=== PATIENT | female | born 1960 | race African-American/Black ===

== ENCOUNTER 2016-10-22 14:33 | Emergency (ER) | payer SELFPAY ==
[~2016-10-22] VITALS: Ht 170.2 cm; Wt 62.6 kg
[~2016-10-22 14:33] MED LIST: ATOR10TA PO; CLON0.1T PO; OXYC30TA PO; PROM118S3 PO
--- NOTE | 2016-10-22 14:53 | PHYS DOC ---
Past Medical History Past Medical History: Asthma, Hypertension Additional Past Medical Histor: "thyroid problem" carp.tunnel Past Surgical History: No Surgical History Alcohol Use: Occasionally Drug Use: None Adult General Chief Complaint Chief Complaint: INSECT BITE HPI HPI Patient is a 56 year old presents to the emergency department with complaints of an insect bite to the forehead. She was bitten yesterday. She has mild swelling at the site of the bite. No other complaints. Review of Systems Review of Systems Constitutional: Denies fever or chills [] Eyes: Denies change in visual acuity, redness, or eye pain [] HENT: Denies nasal congestion or sore throat [] Respiratory: Denies cough or shortness of breath [] Cardiovascular: No additional information not addressed in HPI [] GI: Denies abdominal pain, nausea, vomiting, bloody stools or diarrhea [] : Denies dysuria or hematuria [] Musculoskeletal: Denies back pain or joint pain [] Integument: Denies rash or skin lesions, insect bite [] Neurologic: Denies headache, focal weakness or sensory changes [] Endocrine: Denies polyuria or polydipsia [] Allergies Allergies Allergies Coded Allergies Type Severity Reaction Last Updated Verified No Known Drug Allergies 07/25/14 No Physical Exam Physical Exam Constitutional: Well developed, well nourished, no acute distress, non-toxic appearance. [] HENT: Normocephalic, atraumatic, bilateral external ears normal, oropharynx moist, no oral exudates, nose normal. [] Eyes: PERRLA, EOMI, conjunctiva normal, no discharge. [] Neck: Normal range of motion, no tenderness, supple, no stridor. [] Cardiovascular:Heart rate regular rhythm, no murmur [] Lungs & Thorax: Bilateral breath sounds clear to auscultation [] Abdomen: Bowel sounds normal, soft, no tenderness, no masses, no pulsatile masses. [] Skin: Warm, dry, no erythema, central forehead with a less than 1 cm papule without erythema, vesicles or pustules. It is nontender. There is no fluctuance. There is no induration. Back: No tenderness, no CVA tenderness. [] Extremities: No tenderness, no cyanosis, no clubbing, ROM intact, no edema. [] Neurologic: Alert and oriented X 3, normal motor function, normal sensory function, no focal deficits noted. [] Psychologic: Affect normal, judgement normal, mood normal. [] EKG EKG [] Radiology/Procedures Radiology/Procedures [] Course & Med Decision Making Course & Med Decision Making Pertinent Labs and Imaging studies reviewed. (See chart for details) [] Dragon Disclaimer Dragon Disclaimer This electronic medical record was generated, in whole or in part, using a voice recognition dictation system. Departure Departure Impression: Primary Impression: Insect bite Disposition: 01 HOME, SELF-CARE Condition: STABLE Referrals: ADALBERTO CORTES MD (PCP) Patient Instructions: Insect Bite Additional Instructions: Benadryl [id number] as labeled and is indicated for symptom management CELIA LESLIE LANCE CREWMEMBER Oct 22, 2016 14:53
[2016-10-22 14:54] VITALS: BP 153/99
[2016-10-22] MEDS ORDERED: diphenhydrAMINE HCL 25 MG CAPSULE PO ONE (15:15)
== END 2016-10-22 15:15 | disposition home or self-care (01) ==
LOC: ER 14:33
DX: S00.86XA Insect bite (nonvenomous) of other part of head, initial encounter (principal); J45.909 Unspecified asthma, uncomplicated; I10 Essential (primary) hypertension; E07.9 Disorder of thyroid, unspecified; W57.XXXA Bitten or stung by nonvenomous insect and other nonvenomous arthropods, initial encounter; Y93.89 Activity, other specified; Y92.89 Other specified places as the place of occurrence of the external cause; Y99.8 Other external cause status
CPT/HCPCS: 99282; Q0163

== ENCOUNTER 2017-03-09 17:11 | Emergency (ER) | payer SELFPAY ==
[~2017-03-09] VITALS: Ht 172.7 cm; Wt 62.6 kg
[2017-03-09 18:26] VITALS: BP 119/55
--- NOTE | 2017-03-09 18:49 | RAD ---
CT scan of the head without contrast 03/09/2017 Clinical History: Left-sided numbness for 2 days. Technique: Unenhanced, contiguous, 5 mm axial sections were obtained through the head. Findings: No previous imaging studies are available for comparison. There is mild generalized parenchymal atrophy. Areas of decreased attenuation are seen within the periventricular and subcortical white matter of both cerebral hemispheres consistent with areas of mild small vessel ischemic disease. No acute parenchymal abnormality is seen. No extra-axial fluid collection is noted. No skull fracture is seen. Impression: No acute intracranial abnormality is seen. Electronically signed by: Cesar Hand MD (03/09/2017 6:46 PM) [facility]
[2017-03-09 18:50] LABS: BASO # 0.1 x10^3/uL (0.0-0.2); BASO % 1 % (0-3); EOS % 1 % (0-3); HEMATOCRIT 43.4 % (36.0-47.0); HEMOGLOBIN 14.9 g/dL (12.0-15.5); LYMPH # 2.3 x10^3/uL (1.0-4.8); LYMPH % 36 % (24-48); MEAN CORPUSCULAR HEMOGLOBIN 34 pg (25-35); MEAN CORPUSCULAR HGB CONC 34 g/dL (31-37); MEAN CORPUSCULAR VOLUME 98 fL (79-100); MONO % 7 % (0-9); NEUT % 55 % (31-73); PLATELET COUNT 295 x10^3/uL (140-400); RED BLOOD COUNT 4.44 x10^6/uL (3.50-5.40); RED CELL DISTRIBUTION WIDTH 13.4 % (11.5-14.5); WHITE BLOOD COUNT 6.4 x10^3/uL (4.0-11.0)
[2017-03-09 18:52] LABS: BILIRUBIN,URINE NEGATIVE (NEG); GLUCOSE,URINE NEGATIVE (NEG); NITRITE,URINE NEGATIVE (NEG); PROTEIN,URINE NEGATIVE (NEG-TRACE); UROBILINOGEN,URINE 0.2 mg/dL (0.2 mg/dL)
--- NOTE | 2017-03-09 18:56 | PHYS DOC ---
Past Medical History Past Medical History: Asthma, COPD, Hypertension Additional Past Medical Histor: "thyroid problem" carp.tunnel Past Surgical History: No Surgical History Alcohol Use: Heavy Additional Information: DRANK 1/2 P[place] TODAY. LAST DRINK 1 HOUR AGO Drug Use: Cocaine, Marijuana Social History Narrative: COCAINE LAST USED 1 MONTH AGO Adult General Chief Complaint Chief Complaint: NEURO SYMPTOMS/DEFICITS HPI HPI Patient is a 56 year old female who presents with complaint of left-sided numbness and slurring of speech. Patient states that the numbness started 2 days ago on her left side. Patient states that the pain and numbness started in her left upper extremity 2 days ago. Patient states that yesterday she started noticing numbness in her left lower extremity that goes to her great toe. The patient denies any associated weakness with her symptoms. The patient states that she also started having slurring of speech today. The patient does admit that she recently had drank alcohol but states that "it wasn't enough to intoxicated me." Patient also states that she takes oxycodone tablets which she gets for her chronic pain as prescribed by Dr. Cortes. Patient denies any history of stroke. The patient states that she is worried that she could've had a stroke which is why she came to the emergency department for evaluation today. Review of Systems Review of Systems Constitutional: Denies fever or chills [] Eyes: Denies change in visual acuity, redness, or eye pain [] HENT: Denies nasal congestion or sore throat [] Respiratory: Denies cough or shortness of breath [] Cardiovascular: Denies chest pain or edema[] GI: Denies abdominal pain, nausea, vomiting, bloody stools or diarrhea [] : Denies dysuria or hematuria [] Musculoskeletal: Chronic arthritis[] Integument: Denies rash or skin lesions [] Neurologic: Left arm and left lower extremity numbness, slurred speech[] Allergies Allergies Allergies Coded Allergies Type Severity Reaction Last Updated Verified No Known Drug Allergies 10/22/16 No Physical Exam Physical Exam Constitutional: Alert, afebrile, no acute distress, alcoholic halitosis present. [] HENT: Normocephalic, atraumatic, bilateral external ears normal, oropharynx moist, no oral exudates, nose normal. [] Eyes: PERRLA, EOMI, conjunctiva normal, no discharge. [] Neck: Normal range of motion, no tenderness, supple, no stridor. [] Cardiovascular:Heart rate regular rhythm, no murmur [] Lungs & Thorax: Bilateral breath sounds clear to auscultation [] Abdomen: Bowel sounds normal, soft, no tenderness, no masses, no pulsatile masses. [] Skin: Warm, dry, no erythema, no rash. [] Back: No tenderness, no CVA tenderness. [] Extremities: No tenderness, no cyanosis, no clubbing, ROM intact, no edema. [] Neurologic: Alert and oriented X 3, normal motor function, no discernible dysarthria, mildly decreased sensation to first to third digits of left hand in median nerve distribution, band sawyer strength normal, no focal deficits noted. [] Current Patient Data Vital Signs Vital Signs Date Time Temp Pulse Resp B/P (MAP) Pulse Ox O2 Delivery O2 Flow Rate FiO2 03/09/17 18:26 70 96 03/09/17 17:34 98.5 24 110/55 (73) Room Air 98.5 Lab Values Laboratory Tests Test 03/09/17 17:15 03/09/17 18:43 Urine Collection Type Unknown Urine Color Yellow Urine Clarity Clear Urine pH 6.0 Urine Specific [place] 1.025 Urine Protein Negative mg/dL (NEG-TRACE) Urine Glucose (UA) Negative mg/dL (NEG) Urine Ketones (Stick) Negative mg/dL (NEG) Urine Blood Negative (NEG) Urine Nitrite Negative (NEG) Urine Bilirubin Negative (NEG) Urine Urobilinogen Dipstick 0.2 mg/dL (0.2 mg/dL) Urine Leukocyte Esterase Negative (NEG) Urine RBC 0 /HPF (0-2) Urine WBC Occ /HPF (0-4) Urine Squamous Epithelial Cells Mod /LPF Urine Bacteria Few /HPF (0-FEW) Urine Mucus Mod /LPF Urine Opiates Screen Pos (NEG) Urine Methadone Screen Neg (NEG) Urine Barbiturates Neg (NEG) Urine Phencyclidine Screen Neg (NEG) Urine Amphetamine/Methamphetamine Neg (NEG) Urine Benzodiazepines Screen Neg (NEG) Urine Cocaine Screen Pos (NEG) Urine Cannabinoids Screen Pos (NEG) Urine Ethyl Alcohol Pos (NEG) White Blood Count 6.4 x10^3/uL (4.0-11.0) Red Blood Count 4.44 x10^6/uL (3.50-5.40) Hemoglobin 14.9 g/dL (12.0-15.5) Hematocrit 43.4 % (36.0-47.0) Mean Corpuscular Volume 98 fL (79-100) Mean Corpuscular Hemoglobin 34 pg (25-35) Mean Corpuscular Hemoglobin Concent 34 g/dL (31-37) Red Cell Distribution Width 13.4 % (11.5-14.5) Platelet Count 295 x10^3/uL (140-400) Neutrophils (%) (Auto) 55 % (31-73) Lymphocytes (%) (Auto) 36 % (24-48) Monocytes (%) (Auto) 7 % (0-9) Eosinophils (%) (Auto) 1 % (0-3) Basophils (%) (Auto) 1 % (0-3) Neutrophils # (Auto) 3.5 x10^3uL (1.8-7.7) Lymphocytes # (Auto) 2.3 x10^3/uL (1.0-4.8) Monocytes # (Auto) 0.4 x10^3/uL (0.0-1.1) Eosinophils # (Auto) 0.1 x10^3/uL (0.0-0.7) Basophils # (Auto) 0.1 x10^3/uL (0.0-0.2) Prothrombin Time 11.9 SEC (11.7-14.0) Prothrombin Time INR 0.9 (0.8-1.1) PTT 22 SEC (24-38) L Sodium Level 142 mmol/L (136-145) Potassium Level 3.8 mmol/L (3.5-5.1) Chloride Level 100 mmol/L (98-107) Carbon Dioxide Level 31 mmol/L (21-32) Anion Gap 11 (6-14) Blood Urea Nitrogen 26 mg/dL (7-20) H Creatinine 1.0 mg/dL (0.6-1.0) Estimated GFR (Cockcroft-Gault) 69.7 BUN/Creatinine Ratio 26 (6-20) H Glucose Level 101 mg/dL (70-99) H Calcium Level 9.7 mg/dL (8.5-10.1) Magnesium Level 1.8 mg/dL (1.8-2.4) Total Bilirubin 0.3 mg/dL (0.2-1.0) Aspartate Amino Transferase (AST) 51 U/L (15-37) H Alanine Aminotransferase (ALT) 27 U/L (14-59) Alkaline Phosphatase 114 U/L (46-116) Total Protein 8.5 g/dL (6.4-8.2) H Albumin 3.9 g/dL (3.4-5.0) Albumin/Globulin Ratio 0.8 (1.0-1.7) L Ethyl Alcohol Level 98 mg/dL (0-10) H Laboratory Tests 03/09/17 18:43 Laboratory Tests 03/09/17 18:43 EKG EKG Interpreted by me: Heart rate 66, sinus rhythm, normal intervals, normal axis, no acute ST/T-wave abnormalities present[] Radiology/Procedures Radiology/Procedures [facility] [address] [place] [address] IMAGING REPORT Signed PATIENT: BRENDA BROWN ACCOUNT: [id number] : 1960 LOCATION: ER AGE: 56 SEX: F EXAM STATUS: REG ER ORD. PHYSICIAN: ARCHANA MCGOVERN MD REASON: left-sided numbness for 2 days PROCEDURE: CT HEAD WO CONTRAST CT scan of the head without contrast 03/09/2017 Clinical History: Left-sided numbness for 2 days. Technique: Unenhanced, contiguous, 5 mm axial sections were obtained through the head. Findings: No previous imaging studies are available for comparison. There is mild generalized parenchymal atrophy. Areas of decreased attenuation are seen within the periventricular and subcortical white matter of both cerebral hemispheres consistent with areas of mild small vessel ischemic disease. No acute parenchymal abnormality is seen. No extra-axial fluid collection is noted. No skull fracture is seen. Impression: No acute intracranial abnormality is seen. Electronically signed by: Cesar Hand MD (03/09/2017 6:46 PM) [facility] DICTATED and SIGNED BY: CESAR HAND MD DATE: 03/09/17 1843 CC: ARCHANA MCGOVERN MD; ADALBERTO CORTES MD ~ [] Course & Med Decision Making Course & Med Decision Making Pertinent Labs and Imaging studies reviewed. (See chart for details) Patient's neurologic symptoms started 2 days ago which places the patient out of the window for consideration for TPA. Though CVA remains on the differential at this time, I have lower suspicion that this is the cause of the patient's symptoms. The patient's CT scan shows no evidence of recent CVA. The patient's numbness in the left hand consistent with median neuropathy. The patient displays no motor deficits on the exam and patient's speech appears to be normal and fluency and shantel. Patient did test positive for multiple substances including cocaine, opiates, and alcohol. This may be contributing to the patient's symptoms. The patient is feeling better on reevaluation. The patient is appropriate for outpatient follow-up at this time. The patient admitted that she took cocaine 3-4 days ago. The patient was counseled extensively on discontinuing use of cocaine and advised to discontinue use of alcohol while on narcotic pain medications. I explained that alcohol and narcotics can interact and cause oversedation and may have been the cause of the patient's slurring of speech. Patient's metabolic panel also showed evidence of mild dehydration which I advised the patient to increase fluid intake and to eat regular meals. Recommended follow-up with the patient's primary doctor in 2 days for reevaluation and recommended return to emergency department for any worsening symptoms. Patient voiced understanding and in agreement with treatment plan. Dragon Disclaimer Dragon Disclaimer This electronic medical record was generated, in whole or in part, using a voice recognition dictation system. Departure Departure Impression: Primary Impression: Median neuropathy Additional Impressions: Lumbosacral radiculopathy Polysubstance abuse Dehydration Disposition: 01 HOME, SELF-CARE Condition: IMPROVED Referrals: ADALBERTO CORTES MD (PCP) Patient Instructions: Carpal Tunnel Syndrome, Cocaine Abuse-Brief, Dehydration , Adult, Lumbosacral Radiculopathy, Polysubstance Abuse Additional Instructions: Discontinue any further use of cocaine as this can increase your risk of stroke or heart attack. Do not drink alcohol while taking narcotic pain medication as these substances can interact and cause oversedation. The numbness and your left arm and left leg do not appear to be caused by a stroke but are likely due to impingement of nerves in your arm and leg. Follow-up with Dr. Meza for reevaluation. Return to emergency department for any worsening symptoms. Problem Qualifiers Primary Impression: Median neuropathy Laterality: left Qualified Codes: G56.12 - Other lesions of median nerve, left upper limb ARCHANA MCGOVERN MD Mar 09, 2017 18:56
[2017-03-09 18:57] LABS: BARBITURATES NEG (NEG); BENZODIAZEPINES NEG (NEG); CANNABINOIDS POS (NEG); COCAINE POS (NEG); METHADONE NEG (NEG); OPIATES POS (NEG); PHENCYCLIDINE NEG (NEG)
[2017-03-09 19:00] LABS: INR 0.9 (0.8-1.1); PROTHROMBIN TIME PATIENT 11.9 SEC (11.7-14.0)
[2017-03-09 19:04] LABS: BACTERIA,URINE FEW /HPF (0-FEW); RBC,URINE 0 /HPF (0-2); SQUAMOUS EPITHELIAL CELL,UR MOD /LPF; WBC,URINE OCC /HPF (0-4)
[2017-03-09 19:08] LABS: CALCIUM 9.7 mg/dL (8.5-10.1); GFR 69.7; POTASSIUM 3.8 mmol/L (3.5-5.1)
[2017-03-09 19:14] LABS: ALBUMIN 3.9 g/dL (3.4-5.0); ALBUMIN/GLOBULIN RATIO 0.8 (1.0-1.7); MAGNESIUM 1.8 mg/dL (1.8-2.4); TOTAL BILIRUBIN 0.3 mg/dL (0.2-1.0); TOTAL PROTEIN 8.5 g/dL (6.4-8.2)
--- NOTE | 2017-03-10 12:09 | EKG ---
[facility] [address] [place] [address] Test Date: 2017-03-09 Test Time: 18:46:59 Pat Name: BRENDA BROWN Department: Room: Gender: F Monogram Operator: : 1960 Requested By: ARCHANA MCGOVERN Order Number: [id number] Reading MD: Measurements Intervals [place] Rate: 66 P: 45 SC: 184 QRS: 63 QRSD: 82 T: 85 QT: 428 QTc: 451 Interpretive Statements SINUS RHYTHM LEFT ATRIAL ABNORMALITY ABNORMAL ECG RI6.01 No previous ECG available for comparison
== END 2017-03-09 19:54 | disposition home or self-care (01) ==
LOC: ER 17:11
DX: G56.12 Other lesions of median nerve, left upper limb (principal); M54.17 Radiculopathy, lumbosacral region; F14.10 Cocaine abuse, uncomplicated; F10.10 Alcohol abuse, uncomplicated; F12.10 Cannabis abuse, uncomplicated; E86.0 Dehydration; J44.9 Chronic obstructive pulmonary disease, unspecified; I10 Essential (primary) hypertension; G89.29 Other chronic pain; Z79.891 Long term (current) use of opiate analgesic; Y90.4 Blood alcohol level of 80-99 mg/100 ml
CPT/HCPCS: 36415; 70450; 80053; 80307; 81001; 83735; 85025; 85610; 85730; 93005; 99285; G0480; G0479

== ENCOUNTER 2018-08-12 04:26 | Emergency (ER) | payer SELFPAY ==
[~2018-08-12] VITALS: Ht 170.2 cm; Wt 65.8 kg
[~2018-08-12 04:26] MED LIST changes: -OXYC30TA PO; +OXYC30TA3 PO
[2018-08-12 04:36] VITALS: BP 175/97
--- NOTE | 2018-08-12 04:36 | PHYS DOC ---
Past Medical History Past Medical History: Asthma, COPD, Hypertension Additional Past Medical Histor: "thyroid problem" carp.tunnel Past Surgical History: No Surgical History Alcohol Use: Heavy Drug Use: Cocaine, Marijuana Adult General Chief Complaint Chief Complaint: ANKLE PROBLEM HPI HPI Patient is a 58 year old female who presents with right ankle pain. Patient fell down approximately 8 steps at 10:30 last nigh. Increased pain with movement. Notes swelling. Pain along the back side of the calf as well. No home medicine has been attempted. EMS applied a Zohaib splint. Holding the foot and ankle still seemed to help with the discomfort. Pain is moderate to severe.[] Review of Systems Review of Systems Constitutional: Denies fever or chills [] Eyes: Denies change in visual acuity, redness, or eye pain [] HENT: Denies nasal congestion or sore throat [] Respiratory: Denies cough or shortness of breath [] Cardiovascular: No chest pain or palpitations[] GI: Denies abdominal pain, nausea, vomiting, bloody stools or diarrhea [] : Denies dysuria or hematuria [] Musculoskeletal: Denies back pain, see history of present illness[] Integument: Denies rash or skin lesions [] Neurologic: Denies headache, focal weakness or sensory changes [] Endocrine: Denies polyuria or polydipsia [] All other systems were reviewed and found to be within normal limits, except as documented in this note. Current Medications Current Medications Current Medications Medications (Trade) Dose Ordered Sig/Alexx Start Time Stop Time Status Last Admin Dose Admin Acetaminophen/ Hydrocodone Bitart (Lortab 5/325) 1 tab 1X ONCE 08/12/18 04:45 08/12/18 04:46 DC 08/12/18 04:54 1 TAB Allergies Allergies Allergies Coded Allergies Type Severity Reaction Last Updated Verified No Known Drug Allergies 10/22/16 No Physical Exam Physical Exam Constitutional: Well developed, well nourished, no acute distress, non-toxic appearance. [] HENT: Normocephalic, atraumatic, bilateral external ears normal, oropharynx moist, no oral exudates, nose normal. [] Eyes: PERRLA, EOMI, conjunctiva normal, no discharge. [] Neck: Normal range of motion, no tenderness, supple, no stridor. [] Cardiovascular:Heart rate regular rhythm, no murmur [] Lungs & Thorax: Bilateral breath sounds clear to auscultation [] Abdomen: Bowel sounds normal, soft, no tenderness, no masses, no pulsatile masses. Pelvis stable in 3 planes[] Skin: Warm, dry, no erythema, no rash. [] Back: No tenderness, no CVA tenderness. [] Extremities: no cyanosis, no clubbing. Right ankle has swelling over both the medial and lateral malleolus. Tenderness to palpation over both lateral and medial malleolus. There is no tenderness over the base of the fifth metatarsal. Patient is distal neurovascularly intact. There is some discomfort along the calf. No specific knee tenderness on the right side. No laxity. Full range of motion of the knee. No hip tenderness.[] Neurologic: Alert and oriented X 3, normal motor function, normal sensory function, no focal deficits noted. [] Psychologic: Affect normal, judgement normal, mood normal. [] Current Patient Data Vital Signs Vital Signs Date Time Temp Pulse Resp B/P (MAP) Pulse Ox O2 Delivery O2 Flow Rate FiO2 08/12/18 04:26 98.5 97 18 175/97 (123) 98 Room Air 98.5 EKG EKG [] Radiology/Procedures Radiology/Procedures X-ray of the left ankle shows a nondisplaced medial malleolus fracture. X-ray of the tibia and fibula again demonstrates the medial malleolus fracture, no evidence of a proximal fracture.[] Course & Med Decision Making Course & Med Decision Making Pertinent Labs and Imaging studies reviewed. (See chart for details) ED course: Patient arrived by EMS, was placed in bed, in tolerated exam well. She was given pain medicine. X-rays were obtained that she tolerated well. After the return of the imaging findings, these were discussed with the patient. Patient was placed in a splint. She was distally neurovascularly intact after splint application. She was discharged in improved condition. Medical decision making: No evidence of bimalleolar or trimalleolar fracture. No evidence of open fracture. No evidence of Mason[place]auve fracture. No neuro or vascular compromise.[] Dragon Disclaimer Dragon Disclaimer This electronic medical record was generated, in whole or in part, using a voice recognition dictation system. Departure Departure Impression: Primary Impression: Fx medial malleolus-closed Disposition: HOME, SELF-CARE Condition: IMPROVED Referrals: ADALBERTO CORTES MD (PCP) Follow-up in 2 days ALANNA HALL II, MD Call this morning to set up follow-up appointment within the the next week Patient Instructions: Ankle Fracture, Cast or Splint Care, Crutch Use Additional Instructions: Follow-up with your regular doctor in 2 days. Follow-up with the orthopedic doctor, Dr. Hall-call today to set up an appointment. Return to the ER if worsening pain or any other concerns. Scripts Hydrocodone/Apap 5-325 (NORCO 5-325 TABLET) 1 Each Tablet 1-2 EACH PO PRN Q6HRS PRN for SEVERE PAIN, #20 as needed for pain Prov: GWENDOLYN VERMA DO 08/12/18 Meloxicam (MELOXICAM) 7.5 Mg Tablet 7.5 MG PO DAILY, #20 TAB Prov: GWENDOLYN VERMA DO 08/12/18 Problem Qualifiers Primary Impression: Fx medial malleolus-closed Encounter type: initial encounter Fracture alignment: nondisplaced Laterality: right Qualified Codes: S82.54XA - Nondisplaced fracture of medial malleolus of right tibia, initial encounter for closed fracture GWENDOLYN VERMA DO Aug 12, 2018 04:36
[2018-08-12] MEDS ORDERED: HYDROcodone/APAP 5/325MG 1 TAB TABLET PO ONE ×2 (04:45→06:45)
[2018-08-12] MEDS ORDERED: HYDR-3164 PO (04:58)
[2018-08-12] MEDS ORDERED: MELO7.5T29 PO (04:58)
--- NOTE | 2018-08-12 07:39 | RAD ---
Right ankle, 3 views, 08/12/2018: HISTORY: Ankle pain, injury There is a nondisplaced fracture of the medial malleolus. No other fracture or subluxation is evident. There is moderate diffuse soft tissue swelling. Right tibia and fibula, 2 views, 08/12/2018: No additional fracture or bony abnormality is detected. IMPRESSION: Nondisplaced medial malleolar fracture. Electronically signed by: Jeremías Shanks MD (08/12/2018 7:36 AM) [facility]
== END 2018-08-12 06:43 | disposition home or self-care (01) ==
LOC: ER 04:26
DX: S82.54XA Nondisplaced fracture of medial malleolus of right tibia, initial encounter for closed fracture (principal); J44.9 Chronic obstructive pulmonary disease, unspecified; I10 Essential (primary) hypertension; F10.20 Alcohol dependence, uncomplicated; Y90.9 Presence of alcohol in blood, level not specified; W10.8XXA Fall (on) (from) other stairs and steps, initial encounter; Y93.89 Activity, other specified; Y92.89 Other specified places as the place of occurrence of the external cause; Y99.8 Other external cause status
CPT/HCPCS: 29515; 73590; 73610; 99284-25

== ENCOUNTER 2019-03-01 15:31 | Inpatient (IN) | payer SELFPAY ==
[~2019-03-01] VITALS: Ht 170.2 cm; Wt 64.4 kg
[~2019-03-01 15:31] MED LIST changes: +HYDR-3164 PO; +MELO7.5T29 PO
--- NOTE | 2019-03-01 15:56 | PHYS DOC ---
Past Medical History Past Medical History: Asthma, COPD, Hypertension Additional Past Medical Histor: "thyroid problem" carp.tunnel Past Surgical History: No Surgical History Alcohol Use: Heavy Drug Use: Cocaine, Marijuana Adult General Chief Complaint Chief Complaint: SHORTNESS OF BREATH HPI HPI Patient is a 58 year old with history of COPD, hypertension, asthma, current smoker, who presents to the ED today complaining of cough and shortness of breath for 3 days. Patient denies any fever. Review of Systems Review of Systems Constitutional: Denies fever or chills [] Eyes: Denies change in visual acuity, redness, or eye pain [] HENT: Denies nasal congestion or sore throat [] Respiratory: Reports cough and shortness of breath [] Cardiovascular: No additional information not addressed in HPI [] GI: Denies abdominal pain, nausea, vomiting, bloody stools or diarrhea [] : Denies dysuria or hematuria [] Musculoskeletal: Denies back pain or joint pain [] Integument: Denies rash or skin lesions [] Neurologic: Denies headache, focal weakness or sensory changes [] All other systems were reviewed and found to be within normal limits, except as documented in this note. Current Medications Current Medications Current Medications Medications (Trade) Dose Ordered Sig/Alexx Start Time Stop Time Status Last Admin Dose Admin Acetaminophen (Tylenol) 650 mg PRN Q4HRS PRN 03/01/19 18:30 03/02/19 18:29 UNV Acetaminophen/ Codeine Phosphate (Tylenol #3) 1 tab PRN Q6HRS PRN 03/01/19 18:15 UNV Acetaminophen/ Hydrocodone Bitart (Lortab 5/325) 1 tab PRN Q6HRS PRN 03/01/19 18:15 UNV Albuterol/ Ipratropium (Duoneb) 3 ml RTQID 03/01/19 20:00 03/02/19 19:59 UNV Atorvastatin Calcium (Lipitor) 10 mg HS 03/01/19 21:00 UNV Clonidine HCl (Catapres) 0.1 mg DAILY 03/02/19 09:00 UNV Guaifenesin (Robitussin Dm) 10 ml PRN Q6HRS PRN 03/01/19 18:15 UNV Info (CONTRAST GIVEN -- Rx MONITORING) 1 each PRN DAILY PRN 03/01/19 17:15 03/03/19 17:14 Iohexol (Omnipaque 350 Mg/ml) 90 ml 1X ONCE 03/01/19 17:15 03/01/19 17:16 DC 03/01/19 17:28 90 ML Meloxicam (Mobic) 7.5 mg DAILY 03/02/19 09:00 UNV Methylprednisolone Sodium Succinate (SOLU-Medrol 125MG VIAL) 125 mg 1X ONCE 03/01/19 16:15 03/01/19 16:16 DC 03/01/19 16:28 125 MG Morphine Sulfate (Morphine Sulfate) 4 mg PRN Q2HR PRN 03/01/19 18:30 03/02/19 18:29 UNV Nicotine (Nicoderm Cq 21mg) 1 patch PRN DAILY PRN 03/01/19 18:15 UNV Nicotine Polacrilex (Nicorette Gum) 1 each PRN Q1HR PRN 03/01/19 18:15 UNV Non-Formulary Medication (Promethazine/ Phenyleph/Codeine (Promethazine Vc-Codeine Syrup)) 473 ml QID 03/01/19 21:00 UNV Ondansetron HCl (Zofran) 4 mg PRN Q8HRS PRN 03/01/19 18:30 03/02/19 18:29 UNV Oxycodone HCl (Roxicodone) 30 mg BID 03/01/19 21:00 UNV Piperacillin Sod/ Tazobactam Sod 3.375 gm/Sodium Chloride 50 ml @ 100 mls/hr 1X ONCE 03/01/19 17:15 03/01/19 17:44 DC 03/01/19 18:13 100 MLS/HR Potassium Chloride (Klor-Con) 40 meq 1X ONCE 03/01/19 17:30 03/01/19 17:31 DC Sodium Chloride 1,860 ml @ 1,860 mls/hr Q1H 03/01/19 17:07 03/01/19 18:06 DC 03/01/19 17:31 1,860 MLS/HR Temazepam (Restoril) 7.5 mg PRN QHS PRN 03/01/19 18:15 UNV Allergies Allergies Allergies Coded Allergies Type Severity Reaction Last Updated Verified No Known Drug Allergies 10/22/16 No Physical Exam Physical Exam Constitutional: Well developed, well nourished, no acute distress, non-toxic appearance. [] HENT: Normocephalic, atraumatic, bilateral external ears normal, oropharynx moist, no oral exudates, nose normal. [] Eyes: PERRLA, EOMI, conjunctiva normal, no discharge. [] Neck: Normal range of motion, no tenderness, supple, no stridor. [] Cardiovascular:Heart rate regular rhythm, no murmur [] Lungs & Thorax: Patient is short of breath and a rapid to the ED, wheezing diffusely. Abdomen: Bowel sounds normal, soft, no tenderness, no masses, no pulsatile masses. [] Skin: Warm, dry, no erythema, no rash. [] Back: No tenderness, no CVA tenderness. [] Extremities: No tenderness, no cyanosis, no clubbing, ROM intact, no edema. [] Neurologic: Alert and oriented X 3, normal motor function, normal sensory function, no focal deficits noted. [] Psychologic: Affect normal, judgement normal, mood normal. [] Current Patient Data Vital Signs Vital Signs Date Time Temp Pulse Resp B/P (MAP) Pulse Ox O2 Delivery O2 Flow Rate FiO2 03/01/19 17:00 20 03/01/19 16:08 99 Room Air 03/01/19 15:47 98.1 98 158/81 (106) 98.1 Lab Values Laboratory Tests Test 03/01/19 16:10 03/01/19 16:20 White Blood Count 5.5 x10^3/uL (4.0-11.0) Red Blood Count 3.86 x10^6/uL (3.50-5.40) Hemoglobin 13.2 g/dL (12.0-15.5) Hematocrit 39.0 % (36.0-47.0) Mean Corpuscular Volume 101 fL (79-100) H Mean Corpuscular Hemoglobin 34 pg (25-35) Mean Corpuscular Hemoglobin Concent 34 g/dL (31-37) Red Cell Distribution Width 13.5 % (11.5-14.5) Platelet Count 281 x10^3/uL (140-400) Neutrophils (%) (Auto) 66 % (31-73) Lymphocytes (%) (Auto) 24 % (24-48) Monocytes (%) (Auto) 8 % (0-9) Eosinophils (%) (Auto) 1 % (0-3) Basophils (%) (Auto) 1 % (0-3) Neutrophils # (Auto) 3.6 x10^3/uL (1.8-7.7) Lymphocytes # (Auto) 1.3 x10^3/uL (1.0-4.8) Monocytes # (Auto) 0.5 x10^3/uL (0.0-1.1) Eosinophils # (Auto) 0.0 x10^3/uL (0.0-0.7) Basophils # (Auto) 0.1 x10^3/uL (0.0-0.2) Prothrombin Time 12.1 SEC (11.7-14.0) Prothrombin Time INR 0.9 (0.8-1.1) Activated Partial Thromboplast Time 24 SEC (24-38) Sodium Level 147 mmol/L (136-145) H Potassium Level 3.2 mmol/L (3.5-5.1) L Chloride Level 106 mmol/L (98-107) Carbon Dioxide Level 26 mmol/L (21-32) Anion Gap 15 (6-14) H Blood Urea Nitrogen 20 mg/dL (7-20) Creatinine 1.0 mg/dL (0.6-1.0) Estimated GFR (Cockcroft-Gault) 69.1 BUN/Creatinine Ratio 20 (6-20) Glucose Level 92 mg/dL (70-99) Lactic Acid Level 3.8 mmol/L (0.4-2.0) H Calcium Level 9.5 mg/dL (8.5-10.1) Magnesium Level 1.6 mg/dL (1.8-2.4) L Total Bilirubin 0.5 mg/dL (0.2-1.0) Aspartate Amino Transferase (AST) 124 U/L (15-37) H Alanine Aminotransferase (ALT) 57 U/L (14-59) Alkaline Phosphatase 96 U/L (46-116) Creatine Kinase 234 U/L (26-192) H Creatine Kinase MB (Mass) 3.9 ng/mL (0.0-3.6) H Creatine Kinase MB Relative Index 1.7 % (0-4) Troponin I Quantitative < 0.017 ng/mL (0.000-0.055) MT-Rao-S-Type Natriuretic Peptide 90 pg/mL (0-124) Total Protein 7.7 g/dL (6.4-8.2) Albumin 3.6 g/dL (3.4-5.0) Albumin/Globulin Ratio 0.9 (1.0-1.7) L Thyroid Stimulating Hormone (TSH) 0.677 uIU/mL (0.358-3.74) Urine Collection Type Unknown Urine Color Yellow Urine Clarity Clear Urine pH 6.0 Urine Specific [place] <=1.005 Urine Protein Negative mg/dL (NEG-TRACE) Urine Glucose (UA) Negative mg/dL (NEG) Urine Ketones (Stick) Negative mg/dL (NEG) Urine Blood Negative (NEG) Urine Nitrite Negative (NEG) Urine Bilirubin Negative (NEG) Urine Urobilinogen Dipstick 0.2 mg/dL (0.2 mg/dL) Urine Leukocyte Esterase Negative (NEG) Urine RBC Occ /HPF (0-2) Urine WBC 1-4 /HPF (0-4) Urine Squamous Epithelial Cells Many /LPF Urine Bacteria Many /HPF (0-FEW) Urine Opiates Screen Neg (NEG) Urine Methadone Screen Neg (NEG) Urine Barbiturates Neg (NEG) Urine Phencyclidine Screen Neg (NEG) Urine Amphetamine/Methamphetamine Neg (NEG) Urine Benzodiazepines Screen Neg (NEG) Urine Cocaine Screen Pos (NEG) Urine Cannabinoids Screen Neg (NEG) Urine Ethyl Alcohol Pos (NEG) Laboratory Tests 03/01/19 16:10 Laboratory Tests 03/01/19 16:10 EKG EKG [address] Farrell sinus rythm HR 98 no STEMI[] Radiology/Procedures Radiology/Procedures [] Course & Med Decision Making Course & Med Decision Making Pertinent Labs and Imaging studies reviewed. (See chart for details) This is a 58-year-old female patient presented to the ED today with cough or shortness of breath for 3 days, patient herself is requesting CTA chest to rule out PE because her daughter has history of PEs. Patient is a smoker, encouraged to consider smoking cessation. Patient was given a DuoNeb treatment and Solu-Medrol in the ED. CBC with a normal WBC, CMP with potassium of 3.2, patient was given oral potassium replacement. CTA chest is negative for any acute findings. Lactic level is 3.8, patient was started on the sepsis protocol including IV fluids and Zosyn though I do not believe her elevated lactic level is due to sepsis. Reflex lactic in three hours. Drug screen noted for cocaine and marijuana use. Spoke with -accepted patient for admission Gracy Disclaimer Gracy Disclaimer This electronic medical record was generated, in whole or in part, using a voice recognition dictation system. Departure Departure Impression: Primary Impression: COPD with exacerbation Additional Impressions: Elevated lactic acid level Alcohol abuse Cocaine abuse Disposition: ADMITTED INPATIENT Condition: STABLE Referrals: DEA MACE (PCP) Problem Qualifiers YANA YAP APRN Mar 01, 2019 15:56
[2019-03-01] MEDS ORDERED: MORPHINE SULFATE 4 MG/ML VIAL. IV/SQ PRN (16:00)
[2019-03-01] MEDS ORDERED: methylPREDNISolone SOD SUCC PF 125 MG/2 ML VIAL. IV ONE (16:15)
[2019-03-01] MEDS ORDERED: IPRATRPIUM/ALBUTEROL 0.5/2.5MG 3 ML NEBU. NEB ONE (16:15)
[2019-03-01 16:22] LABS: BASO # 0.1 x10^3/uL (0.0-0.2); BASO % 1 % (0-3); EOS % 1 % (0-3); HEMOGLOBIN 13.2 g/dL (12.0-15.5); LYMPH # 1.3 x10^3/uL (1.0-4.8); LYMPH % 24 % (24-48); MEAN CORPUSCULAR HEMOGLOBIN 34 pg (25-35); MEAN CORPUSCULAR HGB CONC 34 g/dL (31-37); MEAN CORPUSCULAR VOLUME 101 fL (79-100); MONO # 0.5 x10^3/uL (0.0-1.1); MONO % 8 % (0-9); NEUT # 3.6 x10^3/uL (1.8-7.7); NEUT % 66 % (31-73); PLATELET COUNT 281 x10^3/uL (140-400); RED BLOOD COUNT 3.86 x10^6/uL (3.50-5.40); RED CELL DISTRIBUTION WIDTH 13.5 % (11.5-14.5); WHITE BLOOD COUNT 5.5 x10^3/uL (4.0-11.0)
[2019-03-01 16:31] LABS: PROTHROMBIN TIME PATIENT 12.1 SEC (11.7-14.0)
[2019-03-01 16:42] LABS: BILIRUBIN,URINE NEGATIVE (NEG); CLARITY,URINE CLEAR; COLOR,URINE YELLOW; NITRITE,URINE NEGATIVE (NEG); PROTEIN,URINE NEGATIVE (NEG-TRACE); UROBILINOGEN,URINE 0.2 mg/dL (0.2 mg/dL)
[2019-03-01 16:46] LABS: CALCIUM 9.5 mg/dL (8.5-10.1); GFR 69.1; POTASSIUM 3.2 mmol/L (3.5-5.1)
[2019-03-01 16:49] LABS: BACTERIA,URINE MANY /HPF (0-FEW); RBC,URINE OCC /HPF (0-2); SQUAMOUS EPITHELIAL CELL,UR MANY /LPF
[2019-03-01 16:51] LABS: AMPHETAMINE/METHAMPHETAMINE NEG (NEG); BARBITURATES NEG (NEG); BENZODIAZEPINES NEG (NEG); CANNABINOIDS NEG (NEG); COCAINE POS (NEG); METHADONE NEG (NEG); OPIATES NEG (NEG); PHENCYCLIDINE NEG (NEG)
[2019-03-01 16:51] LABS: ALBUMIN 3.6 g/dL (3.4-5.0); ALBUMIN/GLOBULIN RATIO 0.9 (1.0-1.7); MAGNESIUM 1.6 mg/dL (1.8-2.4); TOTAL BILIRUBIN 0.5 mg/dL (0.2-1.0); TOTAL PROTEIN 7.7 g/dL (6.4-8.2)
[2019-03-01] MEDS ORDERED: IV NORMAL SALINE 1000ML BAG 1,860 ML IV SCH (17:07)
[2019-03-01] MEDS ORDERED: CONTRAST GIVEN. MC PRN (17:15)
[2019-03-01] MEDS ORDERED: PIPERACILLIN/TAZOBACTAM 3.375 GM in IV NORMAL SALINE 50ML 50 ML IV ONE (17:15)
[2019-03-01] MEDS ORDERED: IOHEXOL 350 MG/ML 100 ML VIAL. IV ONE (17:15)
[2019-03-01] MEDS ORDERED: POTASSIUM CHLORIDE 20 MEQ TABLET.ER. PO ONE (17:30)
--- NOTE | 2019-03-01 17:44 | RAD ---
Exam: CT of chest with contrast INDICATION: Shortness of breath TECHNIQUE: Sequential axial images through the chest obtained following the administration of 90 mL of Omni 350 IV contrast. Sagittal and coronal reformatted images were reconstructed from the axial data and reviewed. Comparisons: None FINDINGS: Visualized portions of the thyroid are unremarkable. No enlarged mediastinal lymph nodes are identified. Heart size is normal. No pericardial effusion. Thoracic aorta has a normal course and caliber. Pulmonary artery is not enlarged. No pulmonary embolus identified within the main, lobar or segmental pulmonary arteries. Airways are patent. No consolidation or pneumothorax. Mild centrilobular emphysematous change noted at the upper lungs. Strandy opacities are noted at the dependent portion of the lung bases likely representing atelectasis. No pleural effusion or thickening. Visualized upper abdomen is unremarkable. No suspicious osseous lesions or acute fractures. IMPRESSION: No pulmonary embolus identified within the main, lobar or segmental pulmonary arteries. Exposure: One or more of the following in the visualized dose reduction techniques were utilized for this examination: 1. Automated exposure control 2. Adjustment of the MA and/or KV according to patient size 3. Use of iterative of reconstructive technique Electronically signed by: Alessandra Nava MD (03/01/2019 5:41 PM) [facility] [place]
[2019-03-01] MEDS ORDERED: ACETAMINOPHEN 500 MG TABLET PO PRN (18:15)
[2019-03-01] MEDS ORDERED: ACETAMINOPHEN/CODEINE 300/30MG TABLET. PO PRN (18:15)
[2019-03-01] MEDS ORDERED: cloNIDine HCL 0.1 MG TABLET PO PRN (18:15)
[2019-03-01] MEDS ORDERED: guaiFENesin DM 200MG/20MG 10 ML SYRUP PO PRN (18:15)
[2019-03-01] MEDS ORDERED: HYDROcodone/APAP 5/325MG 1 TAB TABLET PO PRN (18:15)
[2019-03-01] MEDS ORDERED: ONDANSETRON PF 4 MG/2 ML VIAL. IVP PRN (18:15)
[2019-03-01] MEDS ORDERED: NICOTINE POLACRILEX 2MG GUM PACKAGE of 12. BC PRN (18:15)
[2019-03-01] MEDS ORDERED: TEMAZEPAM 7.5 MG CAPSULE PO PRN (18:15)
[2019-03-01] MEDS ORDERED: MORPHINE SULFATE 4 MG/ML VIAL. IV PRN (18:30)
[2019-03-01] MEDS ORDERED: ACETAMINOPHEN 325 MG TABLET. PO PRN (18:30)
[2019-03-01] MEDS ORDERED: ONDANSETRON PF 4 MG/2 ML VIAL. IV PRN (18:30)
[2019-03-01] MEDS ORDERED: chlordiazePOXIDE HCL 25 MG CAPSULE PO PRN (19:45)
--- NOTE | 2019-03-01 19:46 | PDOC1 ---
History and Physical Date of Admission Date of Admission DATE: 03/01/19 TIME: 19:40 Identification/Chief Complaint Chief Complaint cough fevers x few days Source Source: Caregiver, Chart review, Patient History of Present Illness History of Present Illness She is cutting back on smoking,she also drinks alcohol and levels are 100s, few days hx soa, cough, no temp, Fulfills SIRS criteria in ER with elev D dimer but CTA shows o PE and just emphysematous lungs, KNown COPD./asthma since child, Admitted henceforth. Empiric abx started, No extra pulmonary sxs. WBC normal, Na 147 and hypokal 3.2 with positive uDS for coccaine and etoh, SHe got 40 PO Kcl at ER Past Medical History Cardiovascular: HTN Pulmonary: Asthma, Bronchitis, COPD Past Surgical History Past Surgical History: No pertinent history Family History Family History: High Cholestrol, Hypertension Social History Smoke: <1 pack per day ALCOHOL: occassional Drugs: Cocaine Current Problem List Problem List Problems Medical Problems: (1) Alcohol abuse Status: Acute (2) Cocaine abuse Status: Acute (3) COPD with exacerbation Status: Acute (4) Elevated lactic acid level Status: Acute Current Medications Current Medications Current Medications Morphine Sulfate (Morphine Sulfate) 4 mg PRN Q15MIN PRN IV/SQ PAIN GREATER THAN 3/10 Last administered on 03/01/19at 16:29; Start 03/01/19 at 16:00; Stop 03/02/19 at 15:59 Albuterol/ Ipratropium (Duoneb) 3 ml 1X ONCE NEB Last administered on 03/01/19at 16:07; Start 03/01/19 at 16:15; Stop 03/01/19 at 16:16; Status DC Methylprednisolone Sodium Succinate (SOLU-Medrol 125MG VIAL) 125 mg 1X ONCE IV Last administered on 03/01/19at 16:28; Start 03/01/19 at 16:15; Stop 03/01/19 at 16:16; Status DC Sodium Chloride 1,860 ml @ 1,860 mls/hr Q1H IV Last administered on 03/01/19at 17:31; Start 03/01/19 at 17:07; Stop 03/01/19 at 18:06; Status DC Piperacillin Sod/ Tazobactam Sod 3.375 gm/Sodium Chloride 50 ml @ 100 mls/hr 1X ONCE IV Last administered on 03/01/19at 18:13; Start 03/01/19 at 17:15; Stop 03/01/19 at 17:44; Status DC Iohexol (Omnipaque 350 Mg/ml) 90 ml 1X ONCE IV Last administered on 03/01/19at 17:28; Start 03/01/19 at 17:15; Stop 03/01/19 at 17:16; Status DC Info (CONTRAST GIVEN -- Rx MONITORING) 1 each PRN DAILY PRN MC SEE COMMENTS; Start 03/01/19 at 17:15; Stop 03/03/19 at 17:14 Potassium Chloride (Klor-Con) 40 meq 1X ONCE PO Last administered on 03/01/19at 18:49; Start 03/01/19 at 17:30; Stop 03/01/19 at 17:31; Status DC Morphine Sulfate (Morphine Sulfate) 2 mg PRN Q2HR PRN IV PAIN; Start 03/01/19 at 18:15 Ondansetron HCl (Zofran) 4 mg PRN Q6HRS PRN IVP NAUSEA/VOMITING; Start 03/01/19 at 18:15 Acetaminophen (Tylenol) 500 mg PRN Q6HRS PRN PO MILD PAIN / TEMP; Start 03/01/19 at 18:15 Acetaminophen/ Codeine Phosphate (Tylenol #3) 1 tab PRN Q6HRS PRN PO MODERATE PAIN; Start 03/01/19 at 18:15 Temazepam (Restoril) 7.5 mg PRN QHS PRN PO INSOMNIA; Start 03/01/19 at 18:15 Albuterol/ Ipratropium (Duoneb) 3 ml RTQID NEB ; Start 03/01/19 at 20:00 Guaifenesin (Robitussin Dm) 10 ml PRN Q6HRS PRN PO COUGH; Start 03/01/19 at 18:15 Clonidine HCl (Catapres) 0.1 mg PRN Q1HR PRN PO HYPERTENSION; Start 03/01/19 at 18:15 Atorvastatin Calcium (Lipitor) 10 mg HS PO ; Start 03/01/19 at 21:00 Clonidine HCl (Catapres) 0.1 mg DAILY PO ; Start 03/02/19 at 09:00 Acetaminophen/ Hydrocodone Bitart (Lortab 5/325) 1 tab PRN Q6HRS PRN PO SEVERE PAIN 7-10; Start 03/01/19 at 18:15 Meloxicam (Mobic) 7.5 mg DAILY PO ; Start 03/02/19 at 09:00 Oxycodone HCl (Roxicodone) 30 mg BID PO ; Start 03/01/19 at 21:00 Non-Formulary Medication (Promethazine/ Phenyleph/Codeine (Promethazine Vc- Codeine Syrup)) 473 ml QID PO ; Start 03/01/19 at 21:00; Status UNV Nicotine (Nicoderm Cq 21mg) 1 patch PRN DAILY PRN TD SMOKING CESSATION; Start 03/01/19 at 18:15 Nicotine Polacrilex (Nicorette Gum) 1 each PRN Q1HR PRN BC SMOKING CESSATION; Start 03/01/19 at 18:15 Ondansetron HCl (Zofran) 4 mg PRN Q8HRS PRN IV NAUSEA/VOMITING; Start 03/01/19 at 18:30; Stop 03/02/19 at 18:29; Status UNV Morphine Sulfate (Morphine Sulfate) 4 mg PRN Q2HR PRN IV PAIN; Start 03/01/19 at 18:30; Stop 03/02/19 at 18:29; Status UNV Acetaminophen (Tylenol) 650 mg PRN Q4HRS PRN PO FEVER; Start 03/01/19 at 18:30; Stop 03/02/19 at 18:29; Status UNV Albuterol/ Ipratropium (Duoneb) 3 ml RTQID NEB ; Start 03/01/19 at 20:00; Stop 03/02/19 at 19:59; Status UNV Active Scripts Active [place] 5-325 Tablet (Acetaminophen/Hydrocodone Bitart) 1 Each Tablet 1-2 Each PO PRN Q6HRS PRN as needed for pain Meloxicam 7.5 Mg Tablet 7.5 Mg PO DAILY Reported Oxycodone Hcl Immed.release (Oxycodone Hcl) 30 Mg Tablet 30 Mg PO BID Promethazine Vc-Codeine Syrup (Promethazine/Phenyleph/Codeine) 473 Ml Syrup 473 Ml PO QID Lipitor (Atorvastatin Calcium) 10 Mg Tablet 10 Mg PO HS Clonidine Hcl 0.1 Mg Tablet 0.1 Mg PO DAILY Allergies Allergies: Coded Allergies: No Known Drug Allergies (Unverified , 10/22/16) ROS Review of System as per hPI, rest 14 pt neg Physical Exam General: No acute distress HEENT: Atraumatic, PERRLA Lungs: Normal air movement, Other (no crackles or audioble wheezing on anterior auscultation) Heart: S1S2, RRR, no thrills, no rubs, no gallops, no murmurs Cardiovascular: S1, S2 Abdomen: Normal bowel sounds, Soft, No tenderness, No hepatosplenomegaly, No masses Rectal Exam: not examined PELVIC: Nml ext genitalia Extremities: No clubbing, No cyanosis, No edema, Normal pulses, No ten derness/swelling Skin: No rashes, No breakdown, No significant lesion Neuro: Normal gait, Normal speech, Strength at 5/5 X4 ext, Normal tone, Sensation intact, Cranial nerves 3-12 NL, Reflexes 2+ Psych/Mental Status: Mental status NL, Mood NL Vitals Vitals Vital Signs Date Time Temp Pulse Resp B/P (MAP) Pulse Ox O2 Delivery O2 Flow Rate FiO2 03/01/19 18:20 95 22 163/78 (106) 90 Room Air 03/01/19 15:47 98.1 98.1 Labs Labs Laboratory Tests Test 03/01/19 16:10 03/01/19 16:20 White Blood Count 5.5 x10^3/uL (4.0-11.0) Red Blood Count 3.86 x10^6/uL (3.50-5.40) Hemoglobin 13.2 g/dL (12.0-15.5) Hematocrit 39.0 % (36.0-47.0) Mean Corpuscular Volume 101 fL (79-100) Mean Corpuscular Hemoglobin 34 pg (25-35) Mean Corpuscular Hemoglobin Concent 34 g/dL (31-37) Red Cell Distribution Width 13.5 % (11.5-14.5) Platelet Count 281 x10^3/uL (140-400) Neutrophils (%) (Auto) 66 % (31-73) Lymphocytes (%) (Auto) 24 % (24-48) Monocytes (%) (Auto) 8 % (0-9) Eosinophils (%) (Auto) 1 % (0-3) Basophils (%) (Auto) 1 % (0-3) Neutrophils # (Auto) 3.6 x10^3/uL (1.8-7.7) Lymphocytes # (Auto) 1.3 x10^3/uL (1.0-4.8) Monocytes # (Auto) 0.5 x10^3/uL (0.0-1.1) Eosinophils # (Auto) 0.0 x10^3/uL (0.0-0.7) Basophils # (Auto) 0.1 x10^3/uL (0.0-0.2) Prothrombin Time 12.1 SEC (11.7-14.0) Prothromb Time International Ratio 0.9 (0.8-1.1) Activated Partial Thromboplast Time 24 SEC (24-38) Sodium Level 147 mmol/L (136-145) Potassium Level 3.2 mmol/L (3.5-5.1) Chloride Level 106 mmol/L (98-107) Carbon Dioxide Level 26 mmol/L (21-32) Anion Gap 15 (6-14) Blood Urea Nitrogen 20 mg/dL (7-20) Creatinine 1.0 mg/dL (0.6-1.0) Estimated GFR (Cockcroft-Gault) 69.1 BUN/Creatinine Ratio 20 (6-20) Glucose Level 92 mg/dL (70-99) Lactic Acid Level 3.8 mmol/L (0.4-2.0) Calcium Level 9.5 mg/dL (8.5-10.1) Magnesium Level 1.6 mg/dL (1.8-2.4) Total Bilirubin 0.5 mg/dL (0.2-1.0) Aspartate Amino Transf (AST/SGOT) 124 U/L (15-37) Alanine Aminotransferase (ALT/SGPT) 57 U/L (14-59) Alkaline Phosphatase 96 U/L (46-116) Creatine Kinase 234 U/L (26-192) Creatine Kinase MB (Mass) 3.9 ng/mL (0.0-3.6) Creatine Kinase MB Relative Index 1.7 % (0-4) Troponin I Quantitative < 0.017 ng/mL (0.000-0.055) NH-Yxv-[id number]-Type Natriuretic Peptide 90 pg/mL (0-124) Total Protein 7.7 g/dL (6.4-8.2) Albumin 3.6 g/dL (3.4-5.0) Albumin/Globulin Ratio 0.9 (1.0-1.7) Thyroid Stimulating Hormone (TSH) 0.677 uIU/mL (0.358-3.74) Ethyl Alcohol Level 308 mg/dL (0-10) Urine Collection Type Unknown Urine Color Yellow Urine Clarity Clear Urine pH 6.0 Urine Specific [place] <=1.005 Urine Protein Negative mg/dL (NEG-TRACE) Urine Glucose (UA) Negative mg/dL (NEG) Urine Ketones (Stick) Negative mg/dL (NEG) Urine Blood Negative (NEG) Urine Nitrite Negative (NEG) Urine Bilirubin Negative (NEG) Urine Urobilinogen Dipstick 0.2 mg/dL (0.2 mg/dL) Urine Leukocyte Esterase Negative (NEG) Urine RBC Occ /HPF (0-2) Urine WBC 1-4 /HPF (0-4) Urine Squamous Epithelial Cells Many /LPF Urine Bacteria Many /HPF (0-FEW) Urine Opiates Screen Neg (NEG) Urine Methadone Screen Neg (NEG) Urine Barbiturates Neg (NEG) Urine Phencyclidine Screen Neg (NEG) Urine Amphetamine/Methamphetamine Neg (NEG) Urine Benzodiazepines Screen Neg (NEG) Urine Cocaine Screen Pos (NEG) Urine Cannabinoids Screen Neg (NEG) Urine Ethyl Alcohol Pos (NEG) Laboratory Tests Test 03/01/19 16:10 03/01/19 16:20 White Blood Count 5.5 x10^3/uL (4.0-11.0) Red Blood Count 3.86 x10^6/uL (3.50-5.40) Hemoglobin 13.2 g/dL (12.0-15.5) Hematocrit 39.0 % (36.0-47.0) Mean Corpuscular Volume 101 fL (79-100) Mean Corpuscular Hemoglobin 34 pg (25-35) Mean Corpuscular Hemoglobin Concent 34 g/dL (31-37) Red Cell Distribution Width 13.5 % (11.5-14.5) Platelet Count 281 x10^3/uL (140-400) Neutrophils (%) (Auto) 66 % (31-73) Lymphocytes (%) (Auto) 24 % (24-48) Monocytes (%) (Auto) 8 % (0-9) Eosinophils (%) (Auto) 1 % (0-3) Basophils (%) (Auto) 1 % (0-3) Neutrophils # (Auto) 3.6 x10^3/uL (1.8-7.7) Lymphocytes # (Auto) 1.3 x10^3/uL (1.0-4.8) Monocytes # (Auto) 0.5 x10^3/uL (0.0-1.1) Eosinophils # (Auto) 0.0 x10^3/uL (0.0-0.7) Basophils # (Auto) 0.1 x10^3/uL (0.0-0.2) Prothrombin Time 12.1 SEC (11.7-14.0) Prothromb Time International Ratio 0.9 (0.8-1.1) Activated Partial Thromboplast Time 24 SEC (24-38) Sodium Level 147 mmol/L (136-145) Potassium Level 3.2 mmol/L (3.5-5.1) Chloride Level 106 mmol/L (98-107) Carbon Dioxide Level 26 mmol/L (21-32) Anion Gap 15 (6-14) Blood Urea Nitrogen 20 mg/dL (7-20) Creatinine 1.0 mg/dL (0.6-1.0) Estimated GFR (Cockcroft-Gault) 69.1 BUN/Creatinine Ratio 20 (6-20) Glucose Level 92 mg/dL (70-99) Lactic Acid Level 3.8 mmol/L (0.4-2.0) Calcium Level 9.5 mg/dL (8.5-10.1) Magnesium Level 1.6 mg/dL (1.8-2.4) Total Bilirubin 0.5 mg/dL (0.2-1.0) Aspartate Amino Transf (AST/SGOT) 124 U/L (15-37) Alanine Aminotransferase (ALT/SGPT) 57 U/L (14-59) Alkaline Phosphatase 96 U/L (46-116) Creatine Kinase 234 U/L (26-192) Creatine Kinase MB (Mass) 3.9 ng/mL (0.0-3.6) Creatine Kinase MB Relative Index 1.7 % (0-4) Troponin I Quantitative < 0.017 ng/mL (0.000-0.055) FW-Amu-K-Type Natriuretic Peptide 90 pg/mL (0-124) Total Protein 7.7 g/dL (6.4-8.2) Albumin 3.6 g/dL (3.4-5.0) Albumin/Globulin Ratio 0.9 (1.0-1.7) Thyroid Stimulating Hormone (TSH) 0.677 uIU/mL (0.358-3.74) Ethyl Alcohol Level 308 mg/dL (0-10) Urine Collection Type Unknown Urine Color Yellow Urine Clarity Clear Urine pH 6.0 Urine Specific [place] <=1.005 Urine Protein Negative mg/dL (NEG-TRACE) Urine Glucose (UA) Negative mg/dL (NEG) Urine Ketones (Stick) Negative mg/dL (NEG) Urine Blood Negative (NEG) Urine Nitrite Negative (NEG) Urine Bilirubin Negative (NEG) Urine Urobilinogen Dipstick 0.2 mg/dL (0.2 mg/dL) Urine Leukocyte Esterase Negative (NEG) Urine RBC Occ /HPF (0-2) Urine WBC 1-4 /HPF (0-4) Urine Squamous Epithelial Cells Many /LPF Urine Bacteria Many /HPF (0-FEW) Urine Opiates Screen Neg (NEG) Urine Methadone Screen Neg (NEG) Urine Barbiturates Neg (NEG) Urine Phencyclidine Screen Neg (NEG) Urine Amphetamine/Methamphetamine Neg (NEG) Urine Benzodiazepines Screen Neg (NEG) Urine Cocaine Screen Pos (NEG) Urine Cannabinoids Screen Neg (NEG) Urine Ethyl Alcohol Pos (NEG) VTE Prophylaxis Ordered VTE Prophylaxis Devices: Yes VTE Pharmacological Prophylaxi: Yes Assessment/Plan Assessment/Plan COPD asthma flare, in an occ smoker Etoh drinker - levels 109- claims she smokes when she drinks HTN controlled SIRS, /sepsis with no organ dysfcn NO PNA on CTA, no PE ELev d dimer, non specific (mild) PLAn: NOn tele bed ok, no need for pulmo consult EMpiric abx if at all needed COugh med, amina patch CIWA, nebs HOme meds for BP etc reconciled REgd iet Ambulate ad denise Recheck hypernat and hypokalemia tmr Seen at ER FULL CODE ALEXX DUNNE MD Mar 01, 2019 19:46
[2019-03-01 19:53] VITALS: BP 158/86
[2019-03-01] MEDS ORDERED: IPRATRPIUM/ALBUTEROL 0.5/2.5MG 3 ML NEBU. NEB SCH ×2 (20:00→21:00)
[2019-03-01] MEDS ORDERED: OXYC20TA34 PO (20:20)
[2019-03-01] MEDS ORDERED: MULTIVIT INFUSN,ADULT 4,VIT K 10 ML, THIAMINE INJ 100 MG, FOLIC ACID INJ 1 MG in IV NOR... IV ONE (20:30)
[2019-03-01] MEDS ORDERED: IPRA3AMP29 NEB (20:50)
[2019-03-01] MEDS ORDERED: ALBU2.5V8 IH (20:50)
[2019-03-01] MEDS ORDERED: CODEINE PO SCH (21:00)
[2019-03-01] MEDS ORDERED: ALBUTEROL SULFATE 2.5 MG/3 ML NEBU. NEB PRN (21:00)
[2019-03-01] MEDS: ATORVASTATIN CALCIUM 10 MG TABLET. PO SCH (21:00)
[2019-03-01] MEDS ORDERED: PROMETHAZINE PO SCH (21:00)
[2019-03-01] MEDS: oxyCODONE ER 10 MG TAB.ER.12H PO SCH (21:00)
[2019-03-01] MEDS ORDERED: PHENYLEPHRINE PO SCH (21:00)
[2019-03-01] MEDS ORDERED: [UNRECOGNIZED DRUG - OTHER] PO SCH (21:00)
[2019-03-01] MEDS: CEFDINIR 300 MG CAPSULE PO SCH (21:07)
[2019-03-01] MEDS: NICOTINE 21MG PATCH. TD PRN (21:07)
[2019-03-01] MEDS: MORPHINE SULFATE 2 MG/ML VIAL. IV PRN (21:08)
[2019-03-01] MEDS: IPRATRPIUM/ALBUTEROL 0.5/2.5MG 3 ML NEBU. NEB SCH (21:24)
[2019-03-01 22:59] VITALS: BP 140/70
[2019-03-02] VITALS (7 sets, daily range): BP systolic 130–186; BP diastolic 72–104
[2019-03-02] MEDS: MORPHINE SULFATE 2 MG/ML VIAL. IV PRN (05:51)
--- NOTE | 2019-03-02 06:50 | EKG ---
[facility] [address] [place] [address] Test Date: 2019-03-01 Test Time: 15:49:21 Pat Name: BRENDA BROWN Department: Room: 569 1 Gender: F [employer] Word [employer]or: : 1960 Requested By: YANA YAP Order Number: [id number] Reading MD: Daniel Jose MD Measurements Intervals [place] Rate: 98 P: 54 MA: 160 QRS: 69 QRSD: 78 T: 135 QT: 356 QTc: 456 Interpretive Statements SINUS RHYTHM NON-SPECIFIC ST/T CHANGES Electronically Signed On 03-09-2019 9:26:35 CDT by Daniel Jose MD
[2019-03-02 07:05] LABS: BASO % 0 % (0-3); EOS % 0 % (0-3); HEMATOCRIT 37.6 % (36.0-47.0); HEMOGLOBIN 13.1 g/dL (12.0-15.5); LYMPH # 0.2 x10^3/uL (1.0-4.8); LYMPH % 4 % (24-48); MEAN CORPUSCULAR HEMOGLOBIN 35 pg (25-35); MEAN CORPUSCULAR HGB CONC 35 g/dL (31-37); MEAN CORPUSCULAR VOLUME 100 fL (79-100); MONO # 0.1 x10^3/uL (0.0-1.1); MONO % 1 % (0-9); NEUT % 95 % (31-73); PLATELET COUNT 233 x10^3/uL (140-400); RED BLOOD COUNT 3.76 x10^6/uL (3.50-5.40); RED CELL DISTRIBUTION WIDTH 13.6 % (11.5-14.5); WHITE BLOOD COUNT 5.2 x10^3/uL (4.0-11.0)
[2019-03-02] MEDS: IPRATRPIUM/ALBUTEROL 0.5/2.5MG 3 ML NEBU. NEB SCH ×4 (07:22→19:36)
[2019-03-02 07:25] LABS: CALCIUM 8.3 mg/dL (8.5-10.1); CREATININE 0.9 mg/dL (0.6-1.0); GFR 78.1; POTASSIUM 3.7 mmol/L (3.5-5.1)
[2019-03-02] MEDS: predniSONE 20 MG TABLET PO SCH (07:42)
[2019-03-02] MEDS: oxyCODONE ER 10 MG TAB.ER.12H PO SCH (07:42)
[2019-03-02] MEDS: MELOXICAM 7.5 MG TABLET PO SCH (07:43)
[2019-03-02] MEDS: MULTIVITAMIN with MINERAL TABLET. PO SCH (07:43)
[2019-03-02] MEDS: FOLIC ACID 1 MG TABLET. PO SCH (07:43)
[2019-03-02] MEDS: cloNIDine HCL 0.1 MG TABLET PO SCH (07:43)
[2019-03-02] MEDS: THIAMINE 100 MG TABLET. PO SCH (07:43)
[2019-03-02 08:03] LABS: % BANDS 3 % (0-9); % LYMPHS 4 % (24-48); % MONOS 2 % (0-10); % SEGS 91 % (35-66)
[2019-03-02 08:06] LABS: PLT ESTIMATE ADEQUATE (ADEQUATE)
--- NOTE | 2019-03-02 09:10 | PDOC ---
PROGRESS NOTES Chief Complaint Chief Complaint Assessment/Plan COPD asthma flare Etoh drinker - levels 109- claims she smokes when she drinks HTN controlled SIRS, /sepsis with no organ dysfcn Cocaine abuse - counseled Hypokalemia - check mag, juan History of Present Illness History of Present Illness Ms Busch is a 58yo F who presents to ED c/o 4 days of cough and SOB. Fulfills SIRS criteria in ER with elev D dimer but CTA shows o PE and just emphysematous lungs. WBC normal, Na 147 and hypokal 3.2 with positive UDS for cocaine and etoh, She is still short of breath today, states she is exhausted and wants to talk to a social security benefits interviewer. No CP or GI complaints Vitals Vitals Vital Signs Date Time Temp Pulse Resp B/P (MAP) Pulse Ox O2 Delivery O2 Flow Rate FiO2 03/02/19 08:30 92 139/79 (99) 03/02/19 07:42 Room Air 03/02/19 07:22 98 03/02/19 07:00 98.6 18 98.6 Physical Exam General: Alert, Cooperative, No acute distress Heart: Regular rate, Normal S1, Normal S2 Lungs: Wheezing Abdomen: Normal bowel sounds, Soft, No tenderness, No hepatosplenomegaly, No masses Extremities: No clubbing, No cyanosis, No edema, Normal pulses, No tenderness/swelling Skin: No rashes, No breakdown, No significant lesion Labs LABS Laboratory Tests Test 03/01/19 16:10 03/01/19 16:20 03/01/19 20:10 03/02/19 05:33 White Blood Count 5.5 x10^3/uL (4.0-11.0) 5.2 x10^3/uL (4.0-11.0) Red Blood Count 3.86 x10^6/uL (3.50-5.40) 3.76 x10^6/uL (3.50-5.40) Hemoglobin 13.2 g/dL (12.0-15.5) 13.1 g/dL (12.0-15.5) Hematocrit 39.0 % (36.0-47.0) 37.6 % (36.0-47.0) Mean Corpuscular Volume 101 fL (79-100) 100 fL (79-100) Mean Corpuscular Hemoglobin 34 pg (25-35) 35 pg (25-35) Mean Corpuscular Hemoglobin Concent 34 g/dL (31-37) 35 g/dL (31-37) Red Cell Distribution Width 13.5 % (11.5-14.5) 13.6 % (11.5-14.5) Platelet Count 281 x10^3/uL (140-400) 233 x10^3/uL (140-400) Neutrophils (%) (Auto) 66 % (31-73) 95 % (31-73) Lymphocytes (%) (Auto) 24 % (24-48) 4 % (24-48) Monocytes (%) (Auto) 8 % (0-9) 1 % (0-9) Eosinophils (%) (Auto) 1 % (0-3) 0 % (0-3) Basophils (%) (Auto) 1 % (0-3) 0 % (0-3) Neutrophils # (Auto) 3.6 x10^3/uL (1.8-7.7) 5.0 x10^3/uL (1.8-7.7) Lymphocytes # (Auto) 1.3 x10^3/uL (1.0-4.8) 0.2 x10^3/uL (1.0-4.8) Monocytes # (Auto) 0.5 x10^3/uL (0.0-1.1) 0.1 x10^3/uL (0.0-1.1) Eosinophils # (Auto) 0.0 x10^3/uL (0.0-0.7) 0.0 x10^3/uL (0.0-0.7) Basophils # (Auto) 0.1 x10^3/uL (0.0-0.2) 0.0 x10^3/uL (0.0-0.2) Prothrombin Time 12.1 SEC (11.7-14.0) Prothromb Time International Ratio 0.9 (0.8-1.1) Activated Partial Thromboplast Time 24 SEC (24-38) Sodium Level 147 mmol/L (136-145) 142 mmol/L (136-145) Potassium Level 3.2 mmol/L (3.5-5.1) 3.7 mmol/L (3.5-5.1) Chloride Level 106 mmol/L (98-107) 104 mmol/L (98-107) Carbon Dioxide Level 26 mmol/L (21-32) 26 mmol/L (21-32) Anion Gap 15 (6-14) 12 (6-14) Blood Urea Nitrogen 20 mg/dL (7-20) 10 mg/dL (7-20) Creatinine 1.0 mg/dL (0.6-1.0) 0.9 mg/dL (0.6-1.0) Estimated GFR (Cockcroft-Gault) 69.1 78.1 BUN/Creatinine Ratio 20 (6-20) Glucose Level 92 mg/dL (70-99) 144 mg/dL (70-99) Lactic Acid Level 3.8 mmol/L (0.4-2.0) 3.3 mmol/L (0.4-2.0) Calcium Level 9.5 mg/dL (8.5-10.1) 8.3 mg/dL (8.5-10.1) Magnesium Level 1.6 mg/dL (1.8-2.4) Total Bilirubin 0.5 mg/dL (0.2-1.0) Aspartate Amino Transf (AST/SGOT) 124 U/L (15-37) Alanine Aminotransferase (ALT/SGPT) 57 U/L (14-59) Alkaline Phosphatase 96 U/L (46-116) Creatine Kinase 234 U/L (26-192) Creatine Kinase MB (Mass) 3.9 ng/mL (0.0-3.6) Creatine Kinase MB Relative Index 1.7 % (0-4) Troponin I Quantitative < 0.017 ng/mL (0.000-0.055) LD-Zcl-T-Type Natriuretic Peptide 90 pg/mL (0-124) Total Protein 7.7 g/dL (6.4-8.2) Albumin 3.6 g/dL (3.4-5.0) Albumin/Globulin Ratio 0.9 (1.0-1.7) Thyroid Stimulating Hormone (TSH) 0.677 uIU/mL (0.358-3.74) Ethyl Alcohol Level 308 mg/dL (0-10) Urine Collection Type Unknown Urine Color Yellow Urine Clarity Clear Urine pH 6.0 Urine Specific [place] <=1.005 Urine Protein Negative mg/dL (NEG-TRACE) Urine Glucose (UA) Negative mg/dL (NEG) Urine Ketones (Stick) Negative mg/dL (NEG) Urine Blood Negative (NEG) Urine Nitrite Negative (NEG) Urine Bilirubin Negative (NEG) Urine Urobilinogen Dipstick 0.2 mg/dL (0.2 mg/dL) Urine Leukocyte Esterase Negative (NEG) Urine RBC Occ /HPF (0-2) Urine WBC 1-4 /HPF (0-4) Urine Squamous Epithelial Cells Many /LPF Urine Bacteria Many /HPF (0-FEW) Urine Opiates Screen Neg (NEG) Urine Methadone Screen Neg (NEG) Urine Barbiturates Neg (NEG) Urine Phencyclidine Screen Neg (NEG) Urine Amphetamine/Methamphetamine Neg (NEG) Urine Benzodiazepines Screen Neg (NEG) Urine Cocaine Screen Pos (NEG) Urine Cannabinoids Screen Neg (NEG) Urine Ethyl Alcohol Pos (NEG) Segmented Neutrophils % 91 % (35-66) Band Neutrophils % 3 % (0-9) Lymphocytes % 4 % (24-48) Monocytes % 2 % (0-10) Platelet Estimate Adequate (ADEQUATE) Assessment and Plan Assessmemt and Plan Problems Medical Problems: (1) Alcohol abuse Status: Acute (2) Cocaine abuse Status: Acute (3) COPD with exacerbation Status: Acute (4) Elevated lactic acid level Status: Acute Comment Review of Relevant I have reviewed the following items irene (where applicable) has been applied. Labs Laboratory Tests Test 03/01/19 16:10 03/01/19 16:20 03/01/19 20:10 03/02/19 05:33 White Blood Count 5.5 x10^3/uL (4.0-11.0) 5.2 x10^3/uL (4.0-11.0) Red Blood Count 3.86 x10^6/uL (3.50-5.40) 3.76 x10^6/uL (3.50-5.40) Hemoglobin 13.2 g/dL (12.0-15.5) 13.1 g/dL (12.0-15.5) Hematocrit 39.0 % (36.0-47.0) 37.6 % (36.0-47.0) Mean Corpuscular Volume 101 fL (79-100) 100 fL (79-100) Mean Corpuscular Hemoglobin 34 pg (25-35) 35 pg (25-35) Mean Corpuscular Hemoglobin Concent 34 g/dL (31-37) 35 g/dL (31-37) Red Cell Distribution Width 13.5 % (11.5-14.5) 13.6 % (11.5-14.5) Platelet Count 281 x10^3/uL (140-400) 233 x10^3/uL (140-400) Neutrophils (%) (Auto) 66 % (31-73) 95 % (31-73) Lymphocytes (%) (Auto) 24 % (24-48) 4 % (24-48) Monocytes (%) (Auto) 8 % (0-9) 1 % (0-9) Eosinophils (%) (Auto) 1 % (0-3) 0 % (0-3) Basophils (%) (Auto) 1 % (0-3) 0 % (0-3) Neutrophils # (Auto) 3.6 x10^3/uL (1.8-7.7) 5.0 x10^3/uL (1.8-7.7) Lymphocytes # (Auto) 1.3 x10^3/uL (1.0-4.8) 0.2 x10^3/uL (1.0-4.8) Monocytes # (Auto) 0.5 x10^3/uL (0.0-1.1) 0.1 x10^3/uL (0.0-1.1) Eosinophils # (Auto) 0.0 x10^3/uL (0.0-0.7) 0.0 x10^3/uL (0.0-0.7) Basophils # (Auto) 0.1 x10^3/uL (0.0-0.2) 0.0 x10^3/uL (0.0-0.2) Prothrombin Time 12.1 SEC (11.7-14.0) Prothromb Time International Ratio 0.9 (0.8-1.1) Activated Partial Thromboplast Time 24 SEC (24-38) Sodium Level 147 mmol/L (136-145) 142 mmol/L (136-145) Potassium Level 3.2 mmol/L (3.5-5.1) 3.7 mmol/L (3.5-5.1) Chloride Level 106 mmol/L (98-107) 104 mmol/L (98-107) Carbon Dioxide Level 26 mmol/L (21-32) 26 mmol/L (21-32) Anion Gap 15 (6-14) 12 (6-14) Blood Urea Nitrogen 20 mg/dL (7-20) 10 mg/dL (7-20) Creatinine 1.0 mg/dL (0.6-1.0) 0.9 mg/dL (0.6-1.0) Estimated GFR (Cockcroft-Gault) 69.1 78.1 BUN/Creatinine Ratio 20 (6-20) Glucose Level 92 mg/dL (70-99) 144 mg/dL (70-99) Lactic Acid Level 3.8 mmol/L (0.4-2.0) 3.3 mmol/L (0.4-2.0) Calcium Level 9.5 mg/dL (8.5-10.1) 8.3 mg/dL (8.5-10.1) Magnesium Level 1.6 mg/dL (1.8-2.4) Total Bilirubin 0.5 mg/dL (0.2-1.0) Aspartate Amino Transf (AST/SGOT) 124 U/L (15-37) Alanine Aminotransferase (ALT/SGPT) 57 U/L (14-59) Alkaline Phosphatase 96 U/L (46-116) Creatine Kinase 234 U/L (26-192) Creatine Kinase MB (Mass) 3.9 ng/mL (0.0-3.6) Creatine Kinase MB Relative Index 1.7 % (0-4) Troponin I Quantitative < 0.017 ng/mL (0.000-0.055) MY-Jbo-F-Type Natriuretic Peptide 90 pg/mL (0-124) Total Protein 7.7 g/dL (6.4-8.2) Albumin 3.6 g/dL (3.4-5.0) Albumin/Globulin Ratio 0.9 (1.0-1.7) Thyroid Stimulating Hormone (TSH) 0.677 uIU/mL (0.358-3.74) Ethyl Alcohol Level 308 mg/dL (0-10) Urine Collection Type Unknown Urine Color Yellow Urine Clarity Clear Urine pH 6.0 Urine Specific [place] <=1.005 Urine Protein Negative mg/dL (NEG-TRACE) Urine Glucose (UA) Negative mg/dL (NEG) Urine Ketones (Stick) Negative mg/dL (NEG) Urine Blood Negative (NEG) Urine Nitrite Negative (NEG) Urine Bilirubin Negative (NEG) Urine Urobilinogen Dipstick 0.2 mg/dL (0.2 mg/dL) Urine Leukocyte Esterase Negative (NEG) Urine RBC Occ /HPF (0-2) Urine WBC 1-4 /HPF (0-4) Urine Squamous Epithelial Cells Many /LPF Urine Bacteria Many /HPF (0-FEW) Urine Opiates Screen Neg (NEG) Urine Methadone Screen Neg (NEG) Urine Barbiturates Neg (NEG) Urine Phencyclidine Screen Neg (NEG) Urine Amphetamine/Methamphetamine Neg (NEG) Urine Benzodiazepines Screen Neg (NEG) Urine Cocaine Screen Pos (NEG) Urine Cannabinoids Screen Neg (NEG) Urine Ethyl Alcohol Pos (NEG) Segmented Neutrophils % 91 % (35-66) Band Neutrophils % 3 % (0-9) Lymphocytes % 4 % (24-48) Monocytes % 2 % (0-10) Platelet Estimate Adequate (ADEQUATE) Laboratory Tests Test 03/01/19 16:10 03/01/19 16:20 03/01/19 20:10 03/02/19 05:33 White Blood Count 5.5 x10^3/uL (4.0-11.0) 5.2 x10^3/uL (4.0-11.0) Red Blood Count 3.86 x10^6/uL (3.50-5.40) 3.76 x10^6/uL (3.50-5.40) Hemoglobin 13.2 g/dL (12.0-15.5) 13.1 g/dL (12.0-15.5) Hematocrit 39.0 % (36.0-47.0) 37.6 % (36.0-47.0) Mean Corpuscular Volume 101 fL (79-100) 100 fL (79-100) Mean Corpuscular Hemoglobin 34 pg (25-35) 35 pg (25-35) Mean Corpuscular Hemoglobin Concent 34 g/dL (31-37) 35 g/dL (31-37) Red Cell Distribution Width 13.5 % (11.5-14.5) 13.6 % (11.5-14.5) Platelet Count 281 x10^3/uL (140-400) 233 x10^3/uL (140-400) Neutrophils (%) (Auto) 66 % (31-73) 95 % (31-73) Lymphocytes (%) (Auto) 24 % (24-48) 4 % (24-48) Monocytes (%) (Auto) 8 % (0-9) 1 % (0-9) Eosinophils (%) (Auto) 1 % (0-3) 0 % (0-3) Basophils (%) (Auto) 1 % (0-3) 0 % (0-3) Neutrophils # (Auto) 3.6 x10^3/uL (1.8-7.7) 5.0 x10^3/uL (1.8-7.7) Lymphocytes # (Auto) 1.3 x10^3/uL (1.0-4.8) 0.2 x10^3/uL (1.0-4.8) Monocytes # (Auto) 0.5 x10^3/uL (0.0-1.1) 0.1 x10^3/uL (0.0-1.1) Eosinophils # (Auto) 0.0 x10^3/uL (0.0-0.7) 0.0 x10^3/uL (0.0-0.7) Basophils # (Auto) 0.1 x10^3/uL (0.0-0.2) 0.0 x10^3/uL (0.0-0.2) Prothrombin Time 12.1 SEC (11.7-14.0) Prothromb Time International Ratio 0.9 (0.8-1.1) Activated Partial Thromboplast Time 24 SEC (24-38) Sodium Level 147 mmol/L (136-145) 142 mmol/L (136-145) Potassium Level 3.2 mmol/L (3.5-5.1) 3.7 mmol/L (3.5-5.1) Chloride Level 106 mmol/L (98-107) 104 mmol/L (98-107) Carbon Dioxide Level 26 mmol/L (21-32) 26 mmol/L (21-32) Anion Gap 15 (6-14) 12 (6-14) Blood Urea Nitrogen 20 mg/dL (7-20) 10 mg/dL (7-20) Creatinine 1.0 mg/dL (0.6-1.0) 0.9 mg/dL (0.6-1.0) Estimated GFR (Cockcroft-Gault) 69.1 78.1 BUN/Creatinine Ratio 20 (6-20) Glucose Level 92 mg/dL (70-99) 144 mg/dL (70-99) Lactic Acid Level 3.8 mmol/L (0.4-2.0) 3.3 mmol/L (0.4-2.0) Calcium Level 9.5 mg/dL (8.5-10.1) 8.3 mg/dL (8.5-10.1) Magnesium Level 1.6 mg/dL (1.8-2.4) Total Bilirubin 0.5 mg/dL (0.2-1.0) Aspartate Amino Transf (AST/SGOT) 124 U/L (15-37) Alanine Aminotransferase (ALT/SGPT) 57 U/L (14-59) Alkaline Phosphatase 96 U/L (46-116) Creatine Kinase 234 U/L (26-192) Creatine Kinase MB (Mass) 3.9 ng/mL (0.0-3.6) Creatine Kinase MB Relative Index 1.7 % (0-4) Troponin I Quantitative < 0.017 ng/mL (0.000-0.055) WC-Bou-E-Type Natriuretic Peptide 90 pg/mL (0-124) Total Protein 7.7 g/dL (6.4-8.2) Albumin 3.6 g/dL (3.4-5.0) Albumin/Globulin Ratio 0.9 (1.0-1.7) Thyroid Stimulating Hormone (TSH) 0.677 uIU/mL (0.358-3.74) Ethyl Alcohol Level 308 mg/dL (0-10) Urine Collection Type Unknown Urine Color Yellow Urine Clarity Clear Urine pH 6.0 Urine Specific [place] <=1.005 Urine Protein Negative mg/dL (NEG-TRACE) Urine Glucose (UA) Negative mg/dL (NEG) Urine Ketones (Stick) Negative mg/dL (NEG) Urine Blood Negative (NEG) Urine Nitrite Negative (NEG) Urine Bilirubin Negative (NEG) Urine Urobilinogen Dipstick 0.2 mg/dL (0.2 mg/dL) Urine Leukocyte Esterase Negative (NEG) Urine RBC Occ /HPF (0-2) Urine WBC 1-4 /HPF (0-4) Urine Squamous Epithelial Cells Many /LPF Urine Bacteria Many /HPF (0-FEW) Urine Opiates Screen Neg (NEG) Urine Methadone Screen Neg (NEG) Urine Barbiturates Neg (NEG) Urine Phencyclidine Screen Neg (NEG) Urine Amphetamine/Methamphetamine Neg (NEG) Urine Benzodiazepines Screen Neg (NEG) Urine Cocaine Screen Pos (NEG) Urine Cannabinoids Screen Neg (NEG) Urine Ethyl Alcohol Pos (NEG) Segmented Neutrophils % 91 % (35-66) Band Neutrophils % 3 % (0-9) Lymphocytes % 4 % (24-48) Monocytes % 2 % (0-10) Platelet Estimate Adequate (ADEQUATE) Medications Current Medications Morphine Sulfate (Morphine Sulfate) 4 mg PRN Q15MIN PRN IV/SQ PAIN GREATER THAN 3/10 Last administered on 03/01/19at 16:29; Start 03/01/19 at 16:00; Stop 03/02/19 at 15:59 Albuterol/ Ipratropium (Duoneb) 3 ml 1X ONCE NEB Last administered on 03/01/19at 16:07; Start 03/01/19 at 16:15; Stop 03/01/19 at 16:16; Status DC Methylprednisolone Sodium Succinate (SOLU-Medrol 125MG VIAL) 125 mg 1X ONCE IV Last administered on 03/01/19at 16:28; Start 03/01/19 at 16:15; Stop 03/01/19 at 16:16; Status DC Sodium Chloride 1,860 ml @ 1,860 mls/hr Q1H IV Last administered on 03/01/19at 17:31; Start 03/01/19 at 17:07; Stop 03/01/19 at 18:06; Status DC Piperacillin Sod/ Tazobactam Sod 3.375 gm/Sodium Chloride 50 ml @ 100 mls/hr 1X ONCE IV Last administered on 03/01/19at 18:13; Start 03/01/19 at 17:15; Stop 03/01/19 at 17:44; Status DC Iohexol (Omnipaque 350 Mg/ml) 90 ml 1X ONCE IV Last administered on 03/01/19at 17:28; Start 03/01/19 at 17:15; Stop 03/01/19 at 17:16; Status DC Info (CONTRAST GIVEN -- Rx MONITORING) 1 each PRN DAILY PRN MC SEE COMMENTS; Start 03/01/19 at 17:15; Stop 03/03/19 at 17:14 Potassium Chloride (Klor-Con) 40 meq 1X ONCE PO Last administered on 03/01/19at 18:49; Start 03/01/19 at 17:30; Stop 03/01/19 at 17:31; Status DC Morphine Sulfate (Morphine Sulfate) 2 mg PRN Q2HR PRN IV PAIN Last administered on 03/02/19at 05:51; Start 03/01/19 at 18:15 Ondansetron HCl (Zofran) 4 mg PRN Q6HRS PRN IVP NAUSEA/VOMITING; Start 03/01/19 at 18:15 Acetaminophen (Tylenol) 500 mg PRN Q6HRS PRN PO MILD PAIN / TEMP; Start 03/01/19 at 18:15 Acetaminophen/ Codeine Phosphate (Tylenol #3) 1 tab PRN Q6HRS PRN PO MODERATE PAIN; Start 03/01/19 at 18:15 Temazepam (Restoril) 7.5 mg PRN QHS PRN PO INSOMNIA; Start 03/01/19 at 18:15 Albuterol/ Ipratropium (Duoneb) 3 ml RTQID NEB Last administered on 03/02/19at 07:22; Start 03/01/19 at 20:00 Guaifenesin (Robitussin Dm) 10 ml PRN Q6HRS PRN PO COUGH; Start 03/01/19 at 18:15 Clonidine HCl (Catapres) 0.1 mg PRN Q1HR PRN PO HYPERTENSION; Start 03/01/19 at 18:15 Atorvastatin Calcium (Lipitor) 10 mg HS PO ; Start 03/01/19 at 21:00 Clonidine HCl (Catapres) 0.1 mg DAILY PO Last administered on 03/02/19at 07:43; Start 03/02/19 at 09:00 Acetaminophen/ Hydrocodone Bitart (Lortab 5/325) 1 tab PRN Q6HRS PRN PO SEVERE PAIN 7-10; Start 03/01/19 at 18:15 Meloxicam (Mobic) 7.5 mg DAILY PO Last administered on 03/02/19at 07:43; Start 03/02/19 at 09:00 Oxycodone HCl (Roxicodone) 30 mg BID PO ; Start 03/01/19 at 21:00; Stop 03/01/19 at 20:22; Status DC Non-Formulary Medication (Promethazine/ Phenyleph/Codeine (Promethazine Vc- Codeine Syrup)) 473 ml QID PO ; Start 03/01/19 at 21:00; Status UNV Nicotine (Nicoderm Cq 21mg) 1 patch PRN DAILY PRN TD SMOKING CESSATION Last administered on 03/01/19at 21:07; Start 03/01/19 at 18:15 Nicotine Polacrilex (Nicorette Gum) 1 each PRN Q1HR PRN BC SMOKING CESSATION; Start 03/01/19 at 18:15 Ondansetron HCl (Zofran) 4 mg PRN Q8HRS PRN IV NAUSEA/VOMITING; Start 03/01/19 at 18:30; Stop 03/02/19 at 18:29; Status UNV Morphine Sulfate (Morphine Sulfate) 4 mg PRN Q2HR PRN IV PAIN; Start 03/01/19 at 18:30; Stop 03/02/19 at 18:29; Status UNV Acetaminophen (Tylenol) 650 mg PRN Q4HRS PRN PO FEVER; Start 03/01/19 at 18:30; Stop 03/02/19 at 18:29; Status UNV Albuterol/ Ipratropium (Duoneb) 3 ml RTQID NEB ; Start 03/01/19 at 20:00; Stop 03/02/19 at 19:59; Status UNV Multivitamins 10 ml/Thiamine HCl 100 mg/Folic Acid 1 mg/Sodium Chloride 1,011.2 ml @ 1,000.088 mls/hr 1X ONCE IV Last administered on 03/01/19at 21:07; Start 03/01/19 at 20:30; Stop 03/01/19 at 21:30; Status DC Chlordiazepoxide (Librium) 25 mg PRN Q6HRS PRN PO ANXIETY / AGITATION; Start 03/01/19 at 19:45 Thiamine Mononitrate (Vitamin B-1) 100 mg DAILY PO Last administered on 03/02/19at 07:43; Start 03/02/19 at 09:00 Folic Acid (Folic Acid) 1 mg DAILY PO Last administered on 03/02/19 07:43; Start 03/02/19 at 09:00 Multivitamins (Thera M Plus) 1 tab DAILY PO Last administered on 03/02/19at 07:43; Start 03/02/19 at 09:00 Prednisone (Prednisone) 60 mg DAILY PO Last administered on 03/02/19at 07:42; Start 03/02/19 at 09:00 Cefdinir (Omnicef) 300 mg BID PO Last administered on 03/01/19at 21:07; Start 03/01/19 at 21:00 Oxycodone HCl (OxyCONTIN) 20 mg DAILY PO Last administered on 03/02/19at 07:42; Start 03/01/19 at 21:00 Albuterol Sulfate (Ventolin Neb Soln) 1 mg PRN Q4HRS PRN NEB wheezing; Start 03/01/19 at 21:00 Albuterol/ Ipratropium (Duoneb) 3 ml QID NEB ; Start 03/01/19 at 21:00; Status UNV Active Scripts Active Hulbert 5-325 Tablet (Acetaminophen/Hydrocodone Bitart) 1 Each Tablet 1-2 Each PO PRN Q6HRS PRN as needed for pain Meloxicam 7.5 Mg Tablet 7.5 Mg PO DAILY Reported Duoneb 0.5-3(2.5) Mg/3 Ml (Albuterol/Ipratropium) 3 Ml Ampul.neb 3 Ml NEB QID Proair Hfa Inhaler (Albuterol Sulfate) 8.5 Gm Hfa.aer.ad 2 Puff IH PRN Q4-6HRS PRN 21 Days Oxycontin (Oxycodone HCl) 20 Mg Tab.er.12h 20 Mg PO DAILY Promethazine Vc-Codeine Syrup (Promethazine/Phenyleph/Codeine) 473 Ml Syrup 473 Ml PO QID Lipitor (Atorvastatin Calcium) 10 Mg Tablet 10 Mg PO HS Clonidine Hcl 0.1 Mg Tablet 0.1 Mg PO DAILY Vitals/I & O Vital Sign - Last 24 Hours 03/01/19 03/01/19 03/01/19 03/01/19 15:47 16:08 16:29 17:00 Temp 98.1 98.1 Pulse 98 Resp 22 22 20 B/P (MAP) 158/81 (106) Pulse Ox 96 99 O2 Delivery Room Air Room Air 03/01/19 03/01/19 03/01/19 03/01/19 17:10 18:20 19:53 21:00 Temp 98.4 98.4 Pulse 92 95 97 Resp 22 22 19 B/P (MAP) 178/80 (112) 163/78 (106) 158/86 (110) Pulse Ox 92 90 95 O2 Delivery Room Air Room Air Room Air Room Air 03/01/19 03/01/19 03/01/19 03/01/19 21:08 21:24 21:38 22:59 Temp 98.3 98.3 Pulse 90 Resp 20 20 18 B/P (MAP) 140/70 (93) Pulse Ox 97 96 O2 Delivery Room Air Room Air Room Air Room Air 03/02/19 03/02/19 03/02/19 03/02/19 02:25 05:51 06:21 07:00 Temp 98.1 98.6 98.1 98.6 Pulse 89 90 Resp 19 20 20 18 B/P (MAP) 172/92 (118) 186/104 (131) Pulse Ox 97 93 O2 Delivery Room Air Room Air Room Air Room Air 03/02/19 03/02/19 03/02/19 03/02/19 07:22 07:42 07:43 08:30 Pulse 90 92 B/P (MAP) 186/104 139/79 (99) Pulse Ox 98 O2 Delivery Room Air Room Air Intake and Output 03/01/19 03/01/19 03/02/19 14:59 22:59 06:59 Intake Total 1910 ml 450 ml Balance 1910 ml 450 ml JAG POOL MD Mar 02, 2019 09:10
[2019-03-02] MEDS: CEFDINIR 300 MG CAPSULE PO SCH ×2 (11:31→20:32)
[2019-03-02] MEDS ORDERED: ALBUTEROL SULFATE 2.5 MG/3 ML NEBU. NEB PRN (12:45)
[2019-03-02] MEDS: LACTOBACILLUS RHAMNOSUS GG 1 CAPSULE. PO SCH (20:31)
[2019-03-02] MEDS: ATORVASTATIN CALCIUM 10 MG TABLET. PO SCH (20:32)
[2019-03-02] MEDS: NICOTINE 21MG PATCH. TD PRN (20:40)
[2019-03-03 03:00] VITALS: BP 158/106
[2019-03-03 07:00] VITALS: BP 139/89
[2019-03-03] MEDS: IPRATRPIUM/ALBUTEROL 0.5/2.5MG 3 ML NEBU. NEB SCH ×3 (08:00→16:00)
[2019-03-03] MEDS: CEFDINIR 300 MG CAPSULE PO SCH (10:20)
[2019-03-03] MEDS: MULTIVITAMIN with MINERAL TABLET. PO SCH (10:20)
[2019-03-03] MEDS: predniSONE 20 MG TABLET PO SCH (10:20)
[2019-03-03] MEDS: MELOXICAM 7.5 MG TABLET PO SCH (10:20)
[2019-03-03] MEDS: THIAMINE 100 MG TABLET. PO SCH (10:20)
[2019-03-03] MEDS: cloNIDine HCL 0.1 MG TABLET PO SCH (10:21)
[2019-03-03] MEDS: oxyCODONE ER 10 MG TAB.ER.12H PO SCH (10:21)
[2019-03-03] MEDS: LACTOBACILLUS RHAMNOSUS GG 1 CAPSULE. PO SCH (10:21)
[2019-03-03] MEDS: FOLIC ACID 1 MG TABLET. PO SCH (10:21)
[2019-03-03] MEDS ORDERED: HYDR-3164 PO (10:33)
[2019-03-03] MEDS ORDERED: CEFD300C PO (10:33)
[2019-03-03] MEDS ORDERED: BENZ100C PO (10:33)
[2019-03-03] MEDS ORDERED: Nicotine 21MG TD (10:33)
[2019-03-03] MEDS ORDERED: ALBU2.5V8 IH (10:33)
--- NOTE | 2019-03-03 10:35 | PDOC3 ---
Discharge Summary Visit Information Date of Admission: Mar 01, 2019 Date of Discharge: Mar 03, 2019 Admitting Diagnosis Comment: COPD asthma flare, in an occ smoker Etoh drinker - levels 109- claims she smokes when she drinks HTN controlled SIRS, /sepsis with no organ dysfcn NO PNA on CTA, no PE ELev d dimer, non specific (mild) Final Diagnosis Problems Medical Problems: (1) Alcohol abuse Status: Acute (2) Cocaine abuse Status: Acute (3) COPD with exacerbation Status: Acute (4) Elevated lactic acid level Status: Acute Brief Hospital Course Allergies Allergies Coded Allergies Type Severity Reaction Last Updated Verified No Known Drug Allergies 10/22/16 No Vital Signs Vital Signs Date Time Temp Pulse Resp B/P (MAP) Pulse Ox O2 Delivery O2 Flow Rate FiO2 03/03/19 10:21 Room Air 03/03/19 10:21 88 144/92 03/03/19 07:00 97.9 14 96 97.9 Lab Results Laboratory Tests Test 03/01/19 16:10 03/01/19 16:20 03/01/19 20:10 03/02/19 05:33 White Blood Count 5.5 x10^3/uL (4.0-11.0) 5.2 x10^3/uL (4.0-11.0) Red Blood Count 3.86 x10^6/uL (3.50-5.40) 3.76 x10^6/uL (3.50-5.40) Hemoglobin 13.2 g/dL (12.0-15.5) 13.1 g/dL (12.0-15.5) Hematocrit 39.0 % (36.0-47.0) 37.6 % (36.0-47.0) Mean Corpuscular Volume 101 fL (79-100) 100 fL (79-100) Mean Corpuscular Hemoglobin 34 pg (25-35) 35 pg (25-35) Mean Corpuscular Hemoglobin Concent 34 g/dL (31-37) 35 g/dL (31-37) Red Cell Distribution Width 13.5 % (11.5-14.5) 13.6 % (11.5-14.5) Platelet Count 281 x10^3/uL (140-400) 233 x10^3/uL (140-400) Neutrophils (%) (Auto) 66 % (31-73) 95 % (31-73) Lymphocytes (%) (Auto) 24 % (24-48) 4 % (24-48) Monocytes (%) (Auto) 8 % (0-9) 1 % (0-9) Eosinophils (%) (Auto) 1 % (0-3) 0 % (0-3) Basophils (%) (Auto) 1 % (0-3) 0 % (0-3) Neutrophils # (Auto) 3.6 x10^3/uL (1.8-7.7) 5.0 x10^3/uL (1.8-7.7) Lymphocytes # (Auto) 1.3 x10^3/uL (1.0-4.8) 0.2 x10^3/uL (1.0-4.8) Monocytes # (Auto) 0.5 x10^3/uL (0.0-1.1) 0.1 x10^3/uL (0.0-1.1) Eosinophils # (Auto) 0.0 x10^3/uL (0.0-0.7) 0.0 x10^3/uL (0.0-0.7) Basophils # (Auto) 0.1 x10^3/uL (0.0-0.2) 0.0 x10^3/uL (0.0-0.2) Prothrombin Time 12.1 SEC (11.7-14.0) Prothromb Time International Ratio 0.9 (0.8-1.1) Activated Partial Thromboplast Time 24 SEC (24-38) Sodium Level 147 mmol/L (136-145) 142 mmol/L (136-145) Potassium Level 3.2 mmol/L (3.5-5.1) 3.7 mmol/L (3.5-5.1) Chloride Level 106 mmol/L (98-107) 104 mmol/L (98-107) Carbon Dioxide Level 26 mmol/L (21-32) 26 mmol/L (21-32) Anion Gap 15 (6-14) 12 (6-14) Blood Urea Nitrogen 20 mg/dL (7-20) 10 mg/dL (7-20) Creatinine 1.0 mg/dL (0.6-1.0) 0.9 mg/dL (0.6-1.0) Estimated GFR (Cockcroft-Gault) 69.1 78.1 BUN/Creatinine Ratio 20 (6-20) Glucose Level 92 mg/dL (70-99) 144 mg/dL (70-99) Lactic Acid Level 3.8 mmol/L (0.4-2.0) 3.3 mmol/L (0.4-2.0) Calcium Level 9.5 mg/dL (8.5-10.1) 8.3 mg/dL (8.5-10.1) Magnesium Level 1.6 mg/dL (1.8-2.4) Total Bilirubin 0.5 mg/dL (0.2-1.0) Aspartate Amino Transf (AST/SGOT) 124 U/L (15-37) Alanine Aminotransferase (ALT/SGPT) 57 U/L (14-59) Alkaline Phosphatase 96 U/L (46-116) Creatine Kinase 234 U/L (26-192) Creatine Kinase MB (Mass) 3.9 ng/mL (0.0-3.6) Creatine Kinase MB Relative Index 1.7 % (0-4) Troponin I Quantitative < 0.017 ng/mL (0.000-0.055) AW-Did-Q-Type Natriuretic Peptide 90 pg/mL (0-124) Total Protein 7.7 g/dL (6.4-8.2) Albumin 3.6 g/dL (3.4-5.0) Albumin/Globulin Ratio 0.9 (1.0-1.7) Thyroid Stimulating Hormone (TSH) 0.677 uIU/mL (0.358-3.74) Ethyl Alcohol Level 308 mg/dL (0-10) Urine Collection Type Unknown Urine Color Yellow Urine Clarity Clear Urine pH 6.0 Urine Specific [place] <=1.005 Urine Protein Negative mg/dL (NEG-TRACE) Urine Glucose (UA) Negative mg/dL (NEG) Urine Ketones (Stick) Negative mg/dL (NEG) Urine Blood Negative (NEG) Urine Nitrite Negative (NEG) Urine Bilirubin Negative (NEG) Urine Urobilinogen Dipstick 0.2 mg/dL (0.2 mg/dL) Urine Leukocyte Esterase Negative (NEG) Urine RBC Occ /HPF (0-2) Urine WBC 1-4 /HPF (0-4) Urine Squamous Epithelial Cells Many /LPF Urine Bacteria Many /HPF (0-FEW) Urine Opiates Screen Neg (NEG) Urine Methadone Screen Neg (NEG) Urine Barbiturates Neg (NEG) Urine Phencyclidine Screen Neg (NEG) Urine Amphetamine/Methamphetamine Neg (NEG) Urine Benzodiazepines Screen Neg (NEG) Urine Cocaine Screen Pos (NEG) Urine Cannabinoids Screen Neg (NEG) Urine Ethyl Alcohol Pos (NEG) Segmented Neutrophils % 91 % (35-66) Band Neutrophils % 3 % (0-9) Lymphocytes % 4 % (24-48) Monocytes % 2 % (0-10) Platelet Estimate Adequate (ADEQUATE) Brief Hospital Course Ms. Busch is a 58 old AA female who smokes, came in for soa, acute bronchitis, no PE or CP on CT chest, STill Some soa on exertion, advised re smoking, Echo to be done today, If UR, then lucas today no PT needs, and I have Rx'd some scripts. COnsults: none Proc: echo dc < 30 mins Discharge Information Condition at Discharge: Improved, Stable Follow Up: Weeks (pcp 4 weeks) Disposition/Orders: D/C to Home Scheduled Atorvastatin Calcium (Lipitor) 10 Mg Tablet, 10 MG PO HS, #30 Ref 0 (Reported) Entered as Reported by: JENNIE IVY on 10/18/13355 Last Action: Continued on 03/01/191813 by ALEXX DUNNE Benzonatate (Tessalon Perle) 100 Mg Capsule, 1 CAP PO TID for cough, #21 Prescribed by: ALEXX DUNNE on 03/03/19 1033 Cefdinir (Cefdinir) 300 Mg Capsule, 300 MG PO BID for acute bronchitis, #14 Prescribed by: ALEXX DUNNE on 03/03/19 1033 Clonidine Hcl (Clonidine Hcl) 0.1 Mg Tablet, 0.1 MG PO DAILY, (Reported) Entered as Reported by: JENNIE IVY on 10/18/13355 Last Action: Continued on 03/01/191813 by ALEXX DUNNE Ipratropium/Albuterol Sulfate (Duoneb 0.5-3(2.5) Mg/3 Ml) 3 Ml Ampul.neb, 3 ML NEB QID for copd, (Reported) Entered as Reported by: FARHAT SOSA on 03/01/192049 Last Action: Continued on 03/01/192050 by FARHAT SOSA Meloxicam (Meloxicam) 7.5 Mg Tablet, 7.5 MG PO DAILY, #20 Prescribed by: GWENDOLYN VERMA DO on 08/12/18 0458 Last Action: Continued on 03/01/191813 by ALEXX DUNNE Oxycodone Hcl (Oxycontin) 20 Mg Tab.er.12h, 20 MG PO DAILY for PAIN, (Reported) Entered as Reported by: FARHAT SOSA on 03/01/192019 Last Action: Converted on 03/01/192023 by FARHAT SOSA Promethazine/Phenyleph/Codeine (Promethazine Vc-Codeine Syrup) 473 Ml Syrup, 473 ML PO QID, (Reported) Entered as Reported by: JENNIE IVY on 10/18/13 0356 Last Action: Converted on 03/01/191813 by ALEXX DUNNE Scheduled PRN Albuterol Sulfate (Proair Hfa Inhaler) 8.5 Gm Hfa.aer.ad, 2 PUFF IH PRN Q4-6HRS PRN for wheezing for 21 Days, #1 Ref 0 Prescribed by: ALEXX DUNNE on 03/03/19 1033 Hydrocodone/Apap 5-325 ([place] 5-325 Tablet) 1 Each Tablet, 1-2 EACH PO PRN Q6HRS PRN for SEVERE PAIN, #15 as needed for pain Prescribed by: ALEXX DUNNE on 03/03/19 1033 [Nicotine 21MG] 1 PATCH PATCH, 1 PATCH TD PRN DAILY PRN for SMOKING CESSATION 1ST CHOICE, #10 Prescribed by: ALEXX DUNNE on 03/03/19 1033 ALEXX DUNNE MD Mar 03, 2019 10:35
[2019-03-03] MEDS ORDERED: BUDE180A IH (10:37)
[2019-03-03 10:58] VITALS: BP 144/92
--- NOTE | 2019-03-03 12:10 | NUR ---
SW consulted for assistance with medication. Chart reviewed and discussed with RN. Pt lives at home and is self pay. SW provided pt with healthcare, Rx, and community resources. ANTHONY also provided pt with a [facility] for DARI OP tx. Pt accepted resources and verbalized understanding. Pt denies other needs.
[2019-03-03 15:00] VITALS: BP 127/87
--- NOTE | 2019-03-03 16:48 | CARD ---
MR#: [id number] Date of Study: 03/03/2019 Ordering Physician: ALEXX DUNNE, Referring Physician: ALEXX DUNNE, Tech: Sarahi Mayfield APPROVED REPORT EXAM: Two-dimensional and M-mode echocardiogram with Doppler and color Doppler. Other Information Quality : GoodHR: 76bpm INDICATION COPD Dyspnea RISK FACTORS Hypertension 2D DIMENSIONS RVDd2.7 (2.9-3.5cm)Left Atrium(2D)2.6 (1.6-4.0cm) IVSd0.8 (0.7-1.1cm)Aortic Root(2D)2.8 (2.0-3.7cm) LVDd4.0 (3.9-5.9cm)LVOT Diameter2.0 (1.8-2.4cm) PWd1.0 (0.7-1.1cm)LVDs2.3 (2.5-4.0cm) FS (%) 41.7 %SV50.3 ml LVEF(%)73.2 (>50%) Aortic Valve AoV Peak Calvin.134.0cm/sAoV VTI25.0cm AO Peak GR.7.2mmHgLVOT Peak Calvin.114.9cm/s LVOT VTI 22.58cmAO Mean GR.4mmHg JOSEY (VMAX)2.01mp4PKN (VTI)2.78cm2 Mitral Valve MV E Kteazeub91.6cm/sMV DECEL [id number] MV A Yepgqvqw92.2cm/sMV SBK23rp E/A Ratio0.8MVA (PHT)2.67cm2 TDI E/Lateral E'14.0E/Medial E'9.5 Pulmonary Valve PV Peak Ukgytxkq66.4cm/sPV Peak Grad.3mmHg Tricuspid Valve TR P. Nlalxrmy443dq/sRAP WDCSCUFI8mcWe TR Peak Gr.33jiQeLXMM78isSz Pulmonary Vein S1 Picexpzw95.3cm/sD2 Vodetjtx90.3cm/s PVa [id number] LEFT VENTRICLE The left ventricle is normal size. There is normal left ventricular wall thickness. The left ventricu lar systolic function is normal and the ejection fraction is within normal range. The Ejection Fracti on is 60-65%. There is normal LV segmental wall motion. Transmitral Doppler flow pattern is Grade I-a bnormal relaxation pattern. RIGHT VENTRICLE The right ventricle is normal size. There is normal right ventricular wall thickness. The right ventr icular systolic function is normal. ATRIA The left atrium size is normal. The right atrium size is normal. The interatrial septum is intact wit h no evidence for an atrial septal defect or patent foramen ovale as noted on 2-D or Doppler imaging. AORTIC VALVE The aortic valve is thickened but opens well. Doppler and Color Flow revealed no significant aortic r egurgitation. There is no significant aortic valvular stenosis. MITRAL VALVE The mitral valve is normal in structure and function. There is no evidence of mitral valve prolapse. There is no mitral valve stenosis. TRICUSPID VALVE The tricuspid valve is normal in structure and function. Doppler and Color Flow revealed trace to mil d tricuspid regurgitation. There is no tricuspid valve stenosis. PULMONIC VALVE The pulmonic valve is not well visualized. Doppler and Color Flow revealed no pulmonic valvular regur gitation. There is no pulmonic valvular stenosis. GREAT VESSELS The aortic root is normal in size. The IVC is normal in size and collapses >50% with inspiration. PERICARDIAL EFFUSION There is no evidence of significant pericardial effusion. Critical Notification Critical Value: No <Conclusion> The left ventricular systolic function is normal and the ejection fraction is within normal range. Th e Ejection Fraction is 60-65%. There is normal LV segmental wall motion. Signed by : Daniel Jose, Electronically Approved : 03/03/2019 16:47:24
--- NOTE | 2019-03-03 19:16 | NUR ---
Discharge Note: Patient was discharged home with self care. Patients IV was discontinued per RN without any complications. Patient agreeable with discharge plans of waiting for ECHO results. Patients results negative. Patient was given discharge summary/instructions, follow-ups, prescriptions and educational material. Patient did not have any further questions and concerns. Patient stated she needed to wait for her daughter. Patient decided to leave without letting staff know.
== END 2019-03-03 19:26 | disposition home or self-care (01) | DRG 872 ==
LOC: ER 15:31 → 5 SOUTH 18:06
PROVIDERS: ADMIT Internal Medicine; ATTEND Internal Medicine
DX: A41.9 Sepsis, unspecified organism (principal); J44.1 Chronic obstructive pulmonary disease with (acute) exacerbation; J45.901 Unspecified asthma with (acute) exacerbation; J20.9 Acute bronchitis, unspecified; E87.6 Hypokalemia; F10.10 Alcohol abuse, uncomplicated; F14.10 Cocaine abuse, uncomplicated; F17.210 Nicotine dependence, cigarettes, uncomplicated; I10 Essential (primary) hypertension; Z82.49 Family history of ischemic heart disease and other diseases of the circulatory system
CPT/HCPCS: 36415; 71275; 80048; 80053; 80307; 81001; 82553; 83605; 83735; 83880; 84443; 84484; 85007; 85025; 85610; 85730; 87040; 93005; 93306; 94640; 96361; 96365; 96375; 99406; G0480; J2270; J2543; J2930; J7030; J7512; J7620; Q9967; 99285-25; G0378

== ENCOUNTER 2019-11-12 14:56 | Emergency (ER) | payer OTHER ==
[~2019-11-12] VITALS: Ht 170.2 cm; Wt 61.3 kg
[~2019-11-12 14:56] MED LIST changes: +ALBU2.5V8 IH; +BENZ100C PO; +BUDE180A IH; +CEFD300C PO; +IPRA3AMP29 NEB; +Nicotine 21MG TD; +OXYC20TA34 PO
[2019-11-12 15:18] VITALS: BP 178/98
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
[2019-11-12] MEDS ORDERED: ACETAMINOPHEN 325 MG TABLET. PO ONE (15:45)
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
--- NOTE | 2019-11-12 20:15 | RAD ---
THORACIC SPINE WO CONTRAST 11/12/2019 4:38 PM INDICATION: Superior endplate concavity at T4 and T5 COMPARISON: None available. TECHNIQUE: Multiplanar, multisequence MR imaging of the thoracic spine is without contrast contrast. FINDINGS: Alignment of the thoracic spine is normal. Vertebral body heights are maintained. Disc heights are maintained. Minimal superior plate concavity at T4 and T5 without significant marrow edema suggestive of chronic process. No acute compression fracture of the thoracic spine is identified. The spinal cord signal intensity is normal in all sequences. There is diffuse marrow edema identified at C5-C6 superior endplate of C7. Evaluation of cervical cord signal is limited by the peripheral location of findings on this examination. There is mild to moderate spinal canal stenosis at C6-C7 secondary to disc bulge and ligamentum flavum infolding. No thoracic disc herniation, neuroforaminal or spinal canal stenosis. Visualized portions of the lungs and mediastinum appear clear. Visualized portions of the upper abdomen appear normal. IMPRESSION: 1. No acute compression fracture of the thoracic spine. 2. Marrow edema involving C5, C6 and C7. Differential considerations would include bone contusion from trauma versus advanced degenerative disc disease. On comparison CT of the cervical spine: There is no definite fracture. Moderate to advanced degenerative disc disease is noted at these levels. Electronically signed by: Collette Koch MD (11/12/2019 8:12 PM) [facility]
[2019-11-12] MEDS ORDERED: DICL50TA4 PO (20:42)
[2019-11-12] MEDS ORDERED: ORPH100T PO (20:42)
[2019-11-12] MEDS ORDERED: HYDR-3164 PO (20:42)
== END 2019-11-12 20:50 | disposition home or self-care (01) ==
LOC: ER 14:56
DX: G89.11 Acute pain due to trauma (principal); R07.81 Pleurodynia; M54.5 Low back pain; J44.9 Chronic obstructive pulmonary disease, unspecified; I10 Essential (primary) hypertension; F17.200 Nicotine dependence, unspecified, uncomplicated; F12.90 Cannabis use, unspecified, uncomplicated; V89.2XXA Person injured in unspecified motor-vehicle accident, traffic, initial encounter; Y93.89 Activity, other specified; Y92.488 Other paved roadways as the place of occurrence of the external cause; Y99.8 Other external cause status
CPT/HCPCS: 71111; 72125; 72128; 72131; 72146; 99285

== ENCOUNTER 2019-12-01 13:51 | Emergency (ER) | payer SELFPAY ==
[~2019-12-01] VITALS: Ht 170.2 cm; Wt 62.0 kg
[~2019-12-01 13:51] MED LIST changes: +DICL50TA4 PO; +ORPH100T PO
[2019-12-01] MEDS ORDERED: PENI500T PO (18:47)
[2019-12-01] MEDS ORDERED: CHLO15MO2 PO (18:47)
--- NOTE | 2019-12-01 18:49 | PHYS DOC ---
Past Medical History Past Medical History: Asthma, COPD, Hypertension Additional Past Medical Histor: "thyroid problem" carp.tunnel Past Surgical History: Tonsillectomy, Tubal ligation Smoking Status: Current Every Day Smoker Alcohol Use: Occasionally Drug Use: Marijuana General Adult EDM: Chief Complaint: DENTAL PROBLEM HPI: HPI: Patient is a 59 year old [female presents with no pain. Patient states that for the last couple days, she has had what feels like a bump on the top of her mouth. States that it has gotten a little worse, with pain going up into her ear, and in her throat. States she does not know what caused it. Denies any fever, denies any nausea, vomiting. States she has not taken anything for this initially, later on states that she had used a mouth rinse at one time but has not used it since. Review of Systems: Review of Systems: Constitutional: Denies fever or chills. [] HENT: Denies nasal congestion or sore throat. States pain to the top of her mouth on the left side. States pain to her left ear [] Respiratory: Denies cough or shortness of breath. [] GI: Denies abdominal pain, nausea, vomiting, bloody stools or diarrhea. [] Neurologic: Denies headache, focal weakness or sensory changes. [] Heart Score: Risk Factors: Risk Factors: DM, Current or recent (<one month) smoker, HTN, HLP, family history of CAD, obesity. Risk Scores: Score 0 - 3: 2.5% MACE over next 6 weeks - Discharge Home Score 4 - 6: 20.3% MACE over next 6 weeks - Admit for Clinical Observation Score 7 - 10: 72.7% MACE over next 6 weeks - Early Invasive Strategies Allergies: Allergies: Allergies Coded Allergies Type Severity Reaction Last Updated Verified No Known Drug Allergies 10/22/16 No Physical Exam: PE: Constitutional: Well developed, well nourished, no acute distress, non-toxic appearance. Agitated [] HENT: Normocephalic, atraumatic, bilateral external ears normal, right ear moderate amount of wax in the left ear and little wax, normal TM. Poor dentition noted to upper teeth with caries noted. Approximate 1 cm erythematous, tender nodule to roof of mouth, blanched center oropharynx moist, no oral exudates, nose normal. [] Eyes: PERRLA, EOMI, conjunctiva normal, no discharge. [] Extremities: No tenderness, no cyanosis, no clubbing, ROM intact, no edema. [] Neurologic: Alert and oriented X 3, normal motor function, normal sensory function, no focal deficits noted. [] Psychologic: Affect normal, judgement normal, mood normal. [] Current Patient Data: Vital Signs: Vital Signs Date Time Temp Pulse Resp B/P (MAP) Pulse Ox O2 Delivery O2 Flow Rate FiO2 12/01/19 16:19 98.0 88 18 134/78 (96) 95 Room Air 98.0 EKG: EKG: [] Radiology/Procedures: Radiology/Procedures: [] Course & Med Decision Making: Course & Med Decision Making Pertinent Labs and Imaging studies reviewed. (See chart for details) [] Provide recommendation for use of mouth rinse, will provide prescription for this. Will provide prescription for short course of antibiotics, 1 dose here. Patient to continue take Tylenol ibuprofen as needed for discomfort. Will provide Toradol shot at this time Dragon Disclaimer: Gracy Disclaimer: This electronic medical record was generated, in whole or in part, using a voice recognition dictation system. Departure Departure Impression: Primary Impression: Oral aphthous ulcer Disposition: HOME, SELF-CARE Condition: GOOD Referrals: DEA MACE (PCP) Patient Instructions: Mouth Injury, Generic Additional Instructions: As we discussed, make sure you are using the mouth rinse as prescribed. Take the antibiotics as prescribed as well. You were given your first dose here tonight, take them for the entire duration. Follow-up with your primary care provider or your dentist for further evaluation and to make sure that your symptoms are improving. You may take Tylenol or ibuprofen as needed for discomfort, however the mouth rinse will help this as well Scripts Chlorhexidine Gluconate (PERIDEX) 15 Ml Mouthwash 15-30 ML PO TID for 8 Days, #473 ML 0 Refills Prov: HERBERTH LANDRY APRN 12/01/19 Penicillin V Potassium (PENICILLIN V POTASSIUM) 500 Mg Tablet 1 TAB PO TID, #30 TAB Prov: HERBERTH LANDRY APRN 12/01/19 Justicifation of Admission Dx: Justifications for Admission: Justification of Admission Dx: N/A HERBERTH LANDRY APRN Dec 01, 2019 18:49
[2019-12-01] MEDS ORDERED: PENICILLIN V K 250 MG TABLET. PO ONE (19:00)
[2019-12-01] MEDS ORDERED: KETOROLAC 30 MG/ML VIAL. IM ONE (19:00)
[2019-12-01 19:20] VITALS: BP 195/99
== END 2019-12-01 19:20 | disposition home or self-care (01) ==
LOC: ER 13:51
DX: K12.0 Recurrent oral aphthae (principal); K08.89 Other specified disorders of teeth and supporting structures; H92.02 Otalgia, left ear; J44.9 Chronic obstructive pulmonary disease, unspecified; J45.909 Unspecified asthma, uncomplicated; F17.200 Nicotine dependence, unspecified, uncomplicated; F12.90 Cannabis use, unspecified, uncomplicated; Z98.51 Tubal ligation status; Z90.89 Acquired absence of other organs
CPT/HCPCS: 96372; 99283; J1885

== ENCOUNTER 2020-12-17 07:59 | Emergency (ER) | payer SELFPAY ==
[~2020-12-17] VITALS: Ht 170.2 cm; Wt 57.2 kg
[~2020-12-17 07:59] MED LIST changes: +CHLO15MO2 PO; +PENI500T PO
[2020-12-17 08:25] VITALS: BP 137/73
--- NOTE | 2020-12-17 09:41 | RAD ---
EXAM: Chest and left ribs, 4 views; lumbar spine, 4 views. HISTORY: Fall. Pain. COMPARISON: 11/12/2019 FINDINGS: Chest and left ribs: A frontal view the chest and 3 views left ribs are obtained. There is suspected bilateral basilar atelectasis or pleural parenchymal scarring. There is no consolidation, pleural eff usion or pneumothorax. The heart is normal in size. There are minimally displaced lateral left sevent h, eighth, ninth and tenth rib fractures. Lumbar spine: 4 views of the lumbar spine are obtained. There is mild lumbar levoscoliosis. There is minimal grade 1 anterolisthesis of L4 on L5, measuring 1 mm. There is disc space narrowing and slight endplate remodeling at this level. There are few endplate Schmorl's nodes. There is facet arthropath y at L4-L5 and L5-S1. IMPRESSION: 1. Minimally displaced lateral left seventh, eighth, ninth and tenth rib fractures. 2. Mild degenerative change involving the lumbar spine, primarily at L4-L5. Electronically signed by: Addis Holland MD (12/17/2020 9:39 AM) [id number]
[2020-12-17] MEDS ORDERED: MORPHINE SULFATE 4 MG/ML INJ. IM ONE (10:00)
--- NOTE | 2020-12-17 10:13 | PHYS DOC ---
Past Medical History Past Medical History: Asthma, COPD, Hypertension Additional Past Medical Histor: "thyroid problem" carp.tunnel Past Surgical History: Tonsillectomy, Tubal ligation Smoking Status: Current Every Day Smoker Alcohol Use: Occasionally Drug Use: Marijuana General Adult EDM: Chief Complaint: RIB PAIN HPI: HPI: Patient is a 60 year old female who presented to ER for evaluation of left- sided rib pain and low back pain after she fell 3 weeks ago. Patient denies any head or neck injury. Patient complained of pain in her left side of her rib with breathing or cough. Patient denies any bowel bladder incontinence. Patient denied headache, no trouble breathing, no neck pain. Patient denies any cough or fever. Review of Systems: Review of Systems: Constitutional: Denies fever or chills. [] Eyes: Denies change in visual acuity. [] HENT: Denies nasal congestion or sore throat. [] Respiratory: Denies cough or shortness of breath. [] Cardiovascular: Denies chest pain or edema. Positive for left-sided rib pain GI: Denies abdominal pain, nausea, vomiting, bloody stools or diarrhea. [] : Denies dysuria. [] Musculoskeletal: Positive for low back pain, no joint pain. Integument: Denies rash. [] Neurologic: Denies headache, focal weakness or sensory changes. [] Endocrine: Denies polyuria or polydipsia. [] Lymphatic: Denies swollen glands. [] Psychiatric: Denies depression or anxiety. [] Heart Score: C/O Chest Pain: N/A Risk Factors: Risk Factors: DM, Current or recent (<one month) smoker, HTN, HLP, family history of CAD, obesity. Risk Scores: Score 0 - 3: 2.5% MACE over next 6 weeks - Discharge Home Score 4 - 6: 20.3% MACE over next 6 weeks - Admit for Clinical Observation Score 7 - 10: 72.7% MACE over next 6 weeks - Early Invasive Strategies Current Medications: Current Medications Medications (Trade) Dose Ordered Sig/Alexx Start Time Stop Time Status Last Admin Dose Admin Morphine Sulfate (Morphine Sulfate) 4 mg 1X ONCE 12/17/20 10:00 12/17/20 10:07 DC Allergies: Allergies: Allergies Coded Allergies Type Severity Reaction Last Updated Verified No Known Drug Allergies 10/22/16 No Physical Exam: PE: Constitutional: Well developed, well nourished, no acute distress, non-toxic appearance. [] HENT: Normocephalic, atraumatic, bilateral external ears normal, oropharynx moist, no oral exudates, nose normal. [] Eyes: PERRLA, EOMI, conjunctiva normal, no discharge. [] Neck: Normal range of motion, no tenderness, supple, no stridor. [] Cardiovascular:Heart rate regular rhythm, no murmur [] Lungs & Thorax: Bilateral breath sounds clear to auscultation, left lateral rib pad extraction tender to palpation, no crepitus, no deformity. Abdomen: Bowel sounds normal, soft, no tenderness, no masses, no pulsatile masses. [] Skin: Warm, dry, no erythema, no rash. [] Back: No tenderness, no CVA tenderness. [] Extremities: No tenderness, no cyanosis, no clubbing, ROM intact, no edema. [] Neurologic: Alert and oriented X 3, normal motor function, normal sensory function, no focal deficits noted. [] Psychologic: Affect normal, judgement normal, mood normal. [] Current Patient Data: Vital Signs: Vital Signs Date Time Temp Pulse Resp B/P (MAP) Pulse Ox O2 Delivery O2 Flow Rate FiO2 12/17/20 08:25 98.2 86 18 137/73 (131) 99 Room Air 98.2 EKG: EKG: [] Radiology/Procedures: Radiology/Procedures: [][facility] [address] [place] [address] IMAGING REPORT Signed PATIENT: BRENDA BROWN ACCOUNT: [id number] : 1960 LOCATION: ER AGE: 60 SEX: F EXAM STATUS: REG ER ORD. PHYSICIAN: LANETTE TALAVERA DO REASON: fell 3 weeks ago, left side ribs pain PROCEDURE: RIBS LEFT AND PA CHEST EXAM: Chest and left ribs, 4 views; lumbar spine, 4 views. HISTORY: Fall. Pain. COMPARISON: 11/12/2019 FINDINGS: Chest and left ribs: A frontal view the chest and 3 views left ribs are obtained. There is suspected bilateral basilar atelectasis or pleural parenchymal scarring. There is no consolidation, pleural effusion or pneumothorax. The heart is normal in size. There are minimally displaced lateral left seventh, eighth, ninth and tenth rib fractures. Lumbar spine: 4 views of the lumbar spine are obtained. There is mild lumbar levoscoliosis. There is minimal grade 1 anterolisthesis of L4 on L5, measuring 1 mm. There is disc space narrowing and slight endplate remodeling at this level. There are few endplate Schmorl's nodes. There is facet arthropathy at L4-L5 and L5-S1. IMPRESSION: 1. Minimally displaced lateral left seventh, eighth, ninth and tenth rib fractures. 2. Mild degenerative change involving the lumbar spine, primarily at L4-L5. Electronically signed by: Addis Nguyen MD (12/17/2020 9:39 AM) [id number] DICTATED and SIGNED BY: ADDIS NGUYEN MD DATE: 12/17/20 [id number] 0 Course & Med Decision Making: Course & Med Decision Making Pertinent Labs and Imaging studies reviewed. (See chart for details) Patient is a 60-year-old female who presented to ER for left-sided rib pain after she fell 3 weeks ago. X-ray show fracture of multiple ribs on the left side, no pneumothorax. Patient was discharged home with pain medication Dragon Disclaimer: Dragon Disclaimer: This electronic medical record was generated, in whole or in part, using a voice recognition dictation system. Departure Departure Impression: Primary Impression: Fracture of ribs, four, closed Disposition: HOME / SELF CARE / HOMELESS Condition: STABLE Referrals: DEA MACE (PCP) Follow up with your doctor on Saturday Patient Instructions: Rib Fracture Additional Instructions: Thank you for visiting our Emergency Department. We appreciate you trusting us with your care. If any additional problems come up don't hesitate to return to visit us. Please follow up with your primary care provider so they can plan additional care if needed and know about the problem that you had. If symptoms worsen come back to the Emergency Department. Any concerning symptoms that start such as chest pain, shortness of air, weakness or numbness on one side of the body, running high fevers or any other concerning symptoms return to the ER. Scripts Hydrocodone Bit/Acetaminophen (HYDROCODONE-APAP 5-325 ) 1 Tab Tablet 1 TAB PO PRN Q6HRS PRN for PAIN, #15 TAB 0 Refills Prov: LANETTE TALAVERA DO 12/17/20 LANETTE TALAVERA DO Dec 17, 2020 10:13
[2020-12-17] MEDS ORDERED: HYDR-2761 PO (10:16)
== END 2020-12-17 10:56 | disposition home or self-care (01) ==
LOC: ER 07:59
DX: S22.32XA Fracture of one rib, left side, initial encounter for closed fracture (principal); S32.049A Unspecified fracture of fourth lumbar vertebra, initial encounter for closed fracture; S32.059A Unspecified fracture of fifth lumbar vertebra, initial encounter for closed fracture; J44.9 Chronic obstructive pulmonary disease, unspecified; I10 Essential (primary) hypertension; F17.200 Nicotine dependence, unspecified, uncomplicated; Z98.51 Tubal ligation status; W18.39XA Other fall on same level, initial encounter; Y93.89 Activity, other specified; Y92.89 Other specified places as the place of occurrence of the external cause; Y99.8 Other external cause status
CPT/HCPCS: 71101; 72100; 96372; 99284; J2270

== ENCOUNTER 2021-02-17 16:40 | Emergency (ER) | payer SELFPAY ==
[~2021-02-17 16:40] MED LIST changes: +HYDR-2761 PO
== END 2021-02-17 19:00 | disposition left against medical advice (07) ==
LOC: ER 16:40
DX: R07.81 Pleurodynia (principal); Z53.21 Procedure and treatment not carried out due to patient leaving prior to being seen by health care provider

== ENCOUNTER 2021-05-23 18:05 | Emergency (ER) | payer OTHER | END 2021-05-23 21:55 | disposition left against medical advice (07) | LOC: ER 18:05 | DX: F19.10 Other psychoactive substance abuse, uncomplicated (principal); Z53.21 Procedure and treatment not carried out due to patient leaving prior to being seen by health care provider ==

== ENCOUNTER 2021-07-26 11:12 | Inpatient (IN) | payer SELFPAY ==
[2021-07-26] VITALS (11 sets, daily range): BP systolic 100–171; BP diastolic 57–80
[~2021-07-26] VITALS: Ht 162.6 cm; Wt 54.8 kg
--- NOTE | 2021-07-26 11:20 | PHYS DOC ---
Past Medical History Past Medical History: Asthma, COPD, Hypertension Additional Past Medical Histor: "thyroid problem" carp.tunnel Past Surgical History: Tonsillectomy, Tubal ligation Smoking Status: Current Every Day Smoker Alcohol Use: Occasionally Drug Use: Cocaine, Heroin, Marijuana General Adult EDM: Chief Complaint: NAUSEA/VOMITING/DIARRHEA HPI: HPI: Patient is a 61 year old female who presents with multiple complaints. She reports that she has had left-sided chest pain and anterior chest pressure with nausea and vomiting symptoms. She has had intermittent left-sided "rib pain" for several months after reportedly breaking several ribs. She reports that she is had chest pressure and nausea vomiting since this morning. She denies constipation or diarrhea. She denies urinary symptoms. She does report feeling dizzy and sweaty as well. She denies syncope or near syncope. She has a chronic cough, with yellow sputum. No hemoptysis reported. She denies fevers or chills. She admits to snorting heroin, she also has cocaine in her drug screen. She has hypertension, she reports that she thinks that she takes medications, though she does not know the names of the medication she takes for her blood pressure. She does not routinely follow-up with her primary care physician or seek routine medical care. No recent surgery, travel, hospitalization. She also reports a near 20 pound weight loss over the last few months, reports decreased appetite and anorexia. Review of Systems: Review of Systems: Constitutional: Denies fever or chills. Reports weight loss, fatigue, anorexia. Eyes: Denies acute vision loss. HENT: Denies nasal congestion or sore throat. [] Respiratory: Chronic cough, dyspnea. Denies hemoptysis Cardiovascular: Chest pain. Denies peripheral edema. GI: Reports upper abdominal pain, nausea, vomiting. Denies constipation or diarrhea. Denies hematemesis, melena or hematochezia. : Denies urinary symptoms. Musculoskeletal: Denies back pain or joint pain. [] Integument: Denies rash. [] Neurologic: Denies headache, focal weakness or sensory changes. She does report dizziness. Denies syncope. Denies numbness or tingling or focal weakness Psychiatric: Polysubstance abuse. Heart Score: C/O Chest Pain: Yes HEART Score for Chest Pain: HEART Score for Chest Pain Response (Comments) Value History Slighlty/Non-Suspicious 0 ECG Nonspecific Repolarizatio 1 Age >45 - < 65 1 Risk Factors 1 or 2 Risk Factors 1 Troponin < Normal Limit 0 Total 3 Risk Factors: Risk Factors: DM, Current or recent (<one month) smoker, HTN, HLP, family history of CAD, obesity. Risk Scores: Score 0 - 3: 2.5% MACE over next 6 weeks - Discharge Home Score 4 - 6: 20.3% MACE over next 6 weeks - Admit for Clinical Observation Score 7 - 10: 72.7% MACE over next 6 weeks - Early Invasive Strategies Allergies: Allergies: Allergies Coded Allergies Type Severity Reaction Last Updated Verified No Known Drug Allergies 10/22/16 No Physical Exam: PE: Constitutional: Frail, thin, chronically ill-appearing, mildly acutely ill- appearing, appears older than stated age HENT: Normocephalic, atraumatic, oropharynx is patent and clear, mucous membranes are tacky Eyes: Sclera are clear and anicteric. Neck: Trachea midline, no meningismus. No JVD. Cardiovascular: Tachycardic, regular, +2 radial and +2 dorsalis pedis pulses bilaterally. Lungs & Thorax: Equal chest rise, no evidence of thorax or chest wall trauma, coarse rhonchi that clear with coughing Welsh no wheezing, no stridor, no cyanosis. Abdomen: Abdomen soft, nondistended, mildly tender to palpation in the epigastrium and left upper quadrant. No guarding, no rebound tenderness, no rigidity. No lower abdominal tenderness. No palpable pulsatile mass. No CVA tenderness. No flank abdominal ecchymoses Skin: Warm, dry, no erythema, no rash. Poor skin turgor. No jaundice. Back: No tenderness, no CVA tenderness. [] Extremities: No tenderness, no cyanosis, no clubbing, ROM intact, no edema. No calf tenderness. Neurologic: Alert and oriented X 3, normal motor function, normal sensory function, no focal deficits noted. [] Psychologic: Affect is flat. She is pleasant and cooperative. EKG: EKG: EKG is interpreted at 1120 Rhythm is sinus tachycardia Rate is 107 bpm [place] is normal No STEMI EKG is interpreted at 1208 Rhythm is sinus Rate is 98 bpm [place] is normal No STEMI Radiology/Procedures: Radiology/Procedures: IMAGING REPORT Signed PATIENT: RUFINO BROWNYCDeonna Culp ACCOUNT: [id number] : 1960 LOCATION: ER AGE: 61 SEX: F EXAM STATUS: PRE ER ORD. PHYSICIAN: KRYSTA WRIGHT DO REASON: cough, chest pain PROCEDURE: PORTABLE CHEST 1V XR CHEST 1V Clinical Indication: Reason: cough, chest pain / Spl. Instructions: / History: Comparison: PA chest December 17, 2020. Findings: The cardiomediastinal silhouette is normal. Lungs are clear. There is no pneumothorax. No pleural effusion is appreciated. No acute bone abnormality.. There are old left rib fractures. IMPRESSION: No acute cardiopulmonary process. Electronically signed by: Davie Katz MD (07/26/2021 11:42 AM) [id number] DICTATED and SIGNED BY: DAVIE KATZ MD DATE: 07/26/21 [id number] 0 IMAGING REPORT Signed PATIENT: BRENDA BROWN ACCOUNT: [id number] : 1960 LOCATION: ER AGE: 61 SEX: F EXAM STATUS: PRE ER ORD. PHYSICIAN: KRYSTA WRIGHT DO REASON: cough, chest pain PROCEDURE: PORTABLE CHEST 1V XR CHEST 1V Clinical Indication: Reason: cough, chest pain / Spl. Instructions: / History: Comparison: PA chest December 17, 2020. Findings: The cardiomediastinal silhouette is normal. Lungs are clear. There is no pneumothorax. No pleural effusion is appreciated. No acute bone abnormality.. There are old left rib fractures. IMPRESSION: No acute cardiopulmonary process. Electronically signed by: Davie Katz MD (07/26/2021 11:42 AM) [id number] DICTATED and SIGNED BY: DAVIE KATZ MD DATE: 07/26/21 [id number] 0 IMAGING REPORT Signed PATIENT: BRENDA BROWN ACCOUNT: [id number] : 1960 LOCATION: ER AGE: 61 SEX: F EXAM STATUS: REG ER ORD. PHYSICIAN: KYLE,KRYSTA M DO REASON: chest pain, abdominal pain, n/v PROCEDURE: CT CHEST ABD PELVIS W/CONTRAST PQRS Compliance Statement: One or more of the following individualized dose reduction techniques were utilized for this examination: 1. Automated exposure control 2. Adjustment of the mA and/or kV according to patient size 3. Use of iterative reconstruction technique CT CHEST+ABD+PELVIS W Clinical Indication: Reason: chest pain, abdominal pain, n/v / Spl. Instructions: [id number] 60ML, PT BEING HYDRATED / History: Comparison: CT chest with contrast March 01, 2019. CTA abdomen and pelvis with contrast March 10, 2014. Technique: Helical CT imaging of the chest, abdomen and pelvis is performed after 60 cc of Omnipaque 300 IV contrast. Oral contrast not administered. Findings: The thyroid is symmetric. There is no adenopathy in the chest. There are subcentimeter mediastinal lymph nodes. Great vessels are normal caliber. Cardiac size is normal, no pericardial effusion. No pleural abnormality is identified. The central airways are patent. There is biapical paraseptal emphysema. There is minimal atelectasis or scarring in the posterior left lower lobe. The lungs are otherwise clear. Stable left adrenal nodule measuring 9 mm. The liver, gallbladder, spleen, pancreas, and right adrenal gland are normal. The abdominal aorta is normal caliber. There is a small left lower pole renal cyst that does not require follow-up. Kidneys enhance symmetrically, no hydronephrosis. The stomach is unremarkable. There is no dilated small bowel. There are no seco ndary signs of appendicitis. There is no colon wall thickening. The urinary bladder is mildly distended, otherwise normal. The uterus is unremarkable. No pelvic free fluid is identified. Avascular necrosis of the bilateral femoral heads, no deformity of the shape. There is minimal old compression deformity at the superior endplate of the T5 vertebral body. IMPRESSION: 1. There is no acute abnormality in the chest, abdomen, or pelvis. 2. Stable left adrenal nodule. Electronically signed by: Davie Katz MD (07/26/2021 2:15 PM) [id number] DICTATED and SIGNED BY: DAVIE KATZ MD DATE: 07/26/21 [id number] 0 Course & Med Decision Making: Course & Med Decision Making Pertinent Labs and Imaging studies reviewed. (See chart for details) The patient is given IV fluid boluses. She is given IV fentanyl and morphine and Zofran. Her blood pressure and heart remain significantly elevated. She reports improvement of chest pain and discomfort. She denies active dyspnea. Nausea is now resolved. No vomiting here. She remains hypertensive, IV Cardene drip is ordered. I have discussed the findings, differential diagnosis and plan of care with her. I recommend hospital sedation for further evaluation and treatment, she will require further endocrinologic work-up, I did order T4 studies, which are pending at this time. TSH is low. Noncompliance, polysubstance abuse, and underlying hyperthyroidism may account for her clinical condition. She is amenable to admission. She is accepted for admission by Dr. St. Gracy Disclaimer: Gracy Disclaimer: This electronic medical record was generated, in whole or in part, using a voice recognition dictation system. Departure Departure Impression: Primary Impression: Hypertensive emergency Additional Impressions: Chest pain Qualified Codes: R07.9 - Chest pain, unspecified Upper abdominal pain Nausea and vomiting Qualified Codes: R11.2 - Nausea with vomiting, unspecified Lactic acidosis Polysubstance abuse Disposition: LEFT WITHOUT BEING SEEN Condition: GUARDED Referrals: DEA MACE (PCP) KRYSTA WRIGHT DO Jul 26, 2021 11:20
[2021-07-26] MEDS ORDERED: IPRATRPIUM/ALBUTEROL 0.5/2.5MG 3 ML NEBU. NEB ONE (11:30)
[2021-07-26] MEDS ORDERED: ONDANSETRON PF 4 MG/2 ML VIAL. IVP ONE (11:30)
[2021-07-26] MEDS ORDERED: methylPREDNISolone SOD SUCC PF 125 MG/2 ML VIAL. IV ONE (11:30)
[2021-07-26] MEDS ORDERED: fentaNYL PF VIAL 100 MCG/2 ML VIAL IVP ONE (11:30)
[2021-07-26] MEDS ORDERED: IV NORMAL SALINE 1000ML BAG 1,000 ML IV ONE ×2 (11:30→13:00)
--- NOTE | 2021-07-26 11:45 | RAD ---
XR CHEST 1V Clinical Indication: Reason: cough, chest pain / Spl. Instructions: / History: Comparison: PA chest December 17, 2020. Findings: The cardiomediastinal silhouette is normal. Lungs are clear. There is no pneumothorax. No pleural eff usion is appreciated. No acute bone abnormality.. There are old left rib fractures. IMPRESSION: No acute cardiopulmonary process. Electronically signed by: Davie Katz MD (07/26/2021 11:42 AM) [id number]
[2021-07-26 12:00] LABS: BASO # 0.1 x10^3/uL (0.0-0.2); BASO % 1 % (0-3); EOS % 0 % (0-3); HEMATOCRIT 46.6 % (36.0-47.0); HEMOGLOBIN 15.5 g/dL (12.0-15.5); LYMPH % 13 % (24-48); MEAN CORPUSCULAR HEMOGLOBIN 32 pg (25-35); MEAN CORPUSCULAR HGB CONC 33 g/dL (31-37); MEAN CORPUSCULAR VOLUME 95 fL (79-100); MONO # 0.3 x10^3/uL (0.0-1.1); MONO % 5 % (0-9); NEUT # 5.9 x10^3/uL (1.8-7.7); NEUT % 81 % (31-73); PLATELET COUNT 486 x10^3/uL (140-400); RED BLOOD COUNT 4.93 x10^6/uL (3.50-5.40); WHITE BLOOD COUNT 7.2 x10^3/uL (4.0-11.0)
[2021-07-26 12:10] LABS: CALCIUM 10.3 mg/dL (8.5-10.1); CREATININE 1.5 mg/dL (0.6-1.0); GFR 42.9; POTASSIUM 3.8 mmol/L (3.5-5.1)
[2021-07-26 12:16] LABS: ALBUMIN 4.1 g/dL (3.4-5.0); ALBUMIN/GLOBULIN RATIO 0.7 (1.0-1.7); MAGNESIUM 2.1 mg/dL (1.8-2.4); PHOSPHORUS 3.8 mg/dL (2.6-4.7); TOTAL BILIRUBIN 0.4 mg/dL (0.2-1.0); TOTAL PROTEIN 9.6 g/dL (6.4-8.2)
--- NOTE | 2021-07-26 12:54 | EKG ---
[facility] [address] [place] [address] Test Date: 2021-07-26 Test Time: 11:20:35 Pat Name: BRENDA BROWN Department: Room: Gender: F Grievance And Appeals Coordinator: : 1960 Requested By: KRYSTA WRIGHT Order Number: [id number] Reading MD: Aly Aguilar Measurements Intervals [place] Rate: 107 P: 78 [place]: 142 QRS: 82 QRSD: 78 T: 81 QT: 368 QTc: 497 Interpretive Statements SINUS TACHYCARDIA BIATRIAL ENLARGEMENT ABNORMAL ECG Electronically Signed On 07-27-2021 8:29:45 PHILOSOPHY PROFESSOR by Aly Aguilar
--- NOTE | 2021-07-26 12:54 | EKG ---
[facility] [address] [place] [address] Test Date: 2021-07-26 Test Time: 11:52:19 Pat Name: BRENDA BROWN Department: Room: Gender: F University Controller: : 1960 Requested By: KRYSTA WRIGHT Order Number: [id number] Reading MD: Aly Aguilar Measurements Intervals [place] Rate: 98 P: 73 [place]: 154 QRS: 75 QRSD: 80 T: 68 QT: 292 QTc: 374 Interpretive Statements SINUS RHYTHM LEFT ATRIAL ABNORMALITY Electronically Signed On 07-27-2021 8:29:08 RN PRACTITIONER by Aly Augilar
[2021-07-26] MEDS ORDERED: MORPHINE SULFATE 4 MG/ML INJ. IVP ONE (13:00)
[2021-07-26 13:23] LABS: BACTERIA,URINE 0 /HPF (0-FEW); BILIRUBIN,URINE NEGATIVE (NEG); CLARITY,URINE CLEAR; COLOR,URINE YELLOW; NITRITE,URINE NEGATIVE (NEG); PROTEIN,URINE 100 mg/dL (NEG-TRACE); RBC,URINE 0 /HPF (0-2); UROBILINOGEN,URINE 0.2 mg/dL (0.2 mg/dL); WBC,URINE 0 /HPF (0-4)
[2021-07-26 13:24] LABS: BARBITURATES NEG (NEG); BENZODIAZEPINES NEG (NEG); CANNABINOIDS NEG (NEG); COCAINE POS (NEG); METHADONE NEG (NEG); OPIATES POS (NEG); PHENCYCLIDINE NEG (NEG)
[2021-07-26 13:25] LABS: AMPHETAMINE/METHAMPHETAMINE NEG (NEG)
[2021-07-26] MEDS ORDERED: IOHEXOL 300 MG/ML 100ML VIAL. IV ONE (13:30)
[2021-07-26] MEDS ORDERED: CONTRAST GIVEN. MC PRN (13:45)
--- NOTE | 2021-07-26 14:17 | RAD ---
PQRS Compliance Statement: One or more of the following individualized dose reduction techniques were utilized for this examinat ion: 1. Automated exposure control 2. Adjustment of the mA and/or kV according to patient size 3. Use of iterative reconstruction technique CT CHEST+ABD+PELVIS W Clinical Indication: Reason: chest pain, abdominal pain, n/v / Spl. Instructions: [id number] 60ML, PT BE ING HYDRATED / History: Comparison: CT chest with contrast March 01, 2019. CTA abdomen and pelvis with contrast March 10, 2014. Technique: Helical CT imaging of the chest, abdomen and pelvis is performed after 60 cc of Omnipaque 300 IV contrast. Oral contrast not administered. Findings: The thyroid is symmetric. There is no adenopathy in the chest. There are subcentimeter mediastinal ly mph nodes. Great vessels are normal caliber. Cardiac size is normal, no pericardial effusion. No pleural abnormality is identified. The central airways are patent. There is biapical paraseptal em physema. There is minimal atelectasis or scarring in the posterior left lower lobe. The lungs are oth erwise clear. Stable left adrenal nodule measuring 9 mm. The liver, gallbladder, spleen, pancreas, and right adrena l gland are normal. The abdominal aorta is normal caliber. There is a small left lower pole renal cys t that does not require follow-up. Kidneys enhance symmetrically, no hydronephrosis. The stomach is unremarkable. There is no dilated small bowel. There are no secondary signs of appendi citis. There is no colon wall thickening. The urinary bladder is mildly distended, otherwise normal. The uterus is unremarkable. No pelvic free fluid is identified. Avascular necrosis of the bilateral femoral heads, no deformity of the shape. There is minimal old co mpression deformity at the superior endplate of the T5 vertebral body. IMPRESSION: 1. There is no acute abnormality in the chest, abdomen, or pelvis. 2. Stable left adrenal nodule. Electronically signed by: Davie Katz MD (07/26/2021 2:15 PM) [id number]
[2021-07-26 15:33] LABS: INFLUENZA A PATIENT NEGATIVE (NEGATIVE); INFLUENZA B PATIENT NEGATIVE (NEGATIVE)
[2021-07-26] MEDS ORDERED: NICO1PAT21 TP (17:07)
[2021-07-26] MEDS ORDERED: OXYC5CAP PO (17:07)
[2021-07-26] MEDS ORDERED: CLON0.1T PO (17:07)
[2021-07-26] MEDS: cloNIDine HCL 0.1 MG TABLET PO SCH (17:30)
[2021-07-26] MEDS: NICOTINE 21MG PATCH. TD SCH (17:31)
[2021-07-26] MEDS ORDERED: THIAMINE INJ 100 MG in IV DEXTROSE 5% 50 ML IV ONE (18:00)
--- NOTE | 2021-07-26 19:02 | PDOC1 ---
History and Physical Date of Admission Date of Admission DATE: 07/26/21 TIME: 18:57 Source Source: Chart review, Patient History of Present Illness History of Present Illness Elin is a 61 year old female admit with chest pain, angina. New and severe left-sided chest pain and anterior chest pressure with nausea and vomiting symptoms. She has a recent cough with sputum production, blue tinged sputum. Prior rib fractures noted, pain 6/10, worse with breathing, she declines that she used cocaine recently says it must have been in the THC she smokes. nausea is better since taking a large stool an hour ago. She does not routinely follow-up with her primary care physician or seek routine medical care. unintention weight loss over months, maybe 20 lbs, Past Medical History Cardiovascular: HTN Pulmonary: Asthma, Bronchitis, COPD Past Surgical History Past Surgical History: No pertinent history Family History Family History: High Cholestrol, Hypertension Social History Smoke: <1 pack per day ALCOHOL: occassional Drugs: Cocaine, Marijuana Current Problem List Problem List Problems Medical Problems: (1) Chest pain Status: Acute (2) Hypertensive emergency Status: Acute (3) Lactic acidosis Status: Acute (4) Nausea and vomiting Status: Acute (5) Polysubstance abuse Status: Acute (6) Upper abdominal pain Status: Acute Current Medications Current Medications Current Medications Sodium Chloride 1,000 ml @ 1,000 mls/hr 1X ONCE IV Last administered on at 11:45; Start 07/26/21 at 11:30; Stop 07/26/21 at 12:29; Status DC Ondansetron HCl (Zofran) 4 mg 1X ONCE IVP Last administered on 07/26/21at 11:46; Start 07/26/21 at 11:30; Stop 07/26/21 at 11:31; Status DC Fentanyl Citrate (Fentanyl 2ml Vial) 50 mcg 1X ONCE IVP Last administered on 07/26/21at 11:46; Start 07/26/21 at 11:30; Stop 07/26/21 at 11:31; Status DC Methylprednisolone Sodium Succinate (SOLU-Medrol 125MG VIAL) 125 mg 1X ONCE IV Last administered on 07/26/21at 11:46; Start 07/26/21 at 11:30; Stop 07/26/21 at 11:31; Status DC Albuterol/ Ipratropium (Duoneb) 3 ml 1X ONCE NEB Last administered on 07/26/21at 12:03; Start 07/26/21 at 11:30; Stop 07/26/21 at 11:31; Status DC Sodium Chloride 1,000 ml @ 1,000 mls/hr 1X ONCE IV Last administered on 07/26/21at 12:57; Start 07/26/21 at 13:00; Stop 07/26/21 at 13:59; Status DC Morphine Sulfate (Morphine Sulfate) 4 mg 1X ONCE IVP Last administered on 07/26/21at 12:59; Start 07/26/21 at 13:00; Stop 07/26/21 at 13:01; Status DC Iohexol (Omnipaque 300 Mg/ml) 60 ml 1X ONCE IV Last administered on 07/26/21at 13:33; Start 07/26/21 at 13:30; Stop 07/26/21 at 13:31; Status DC Info (CONTRAST GIVEN -- Rx MONITORING) 1 each PRN DAILY PRN MC SEE COMMENTS; Start 07/26/21 at 13:45; Stop 07/28/21 at 13:44 Nicardipine HCl 50 mg/Sodium Chloride 250 ml @ 25 mls/hr CONT PRN IV PER PROTOCOL Last administered on 07/26/21at 14:56; Start 07/26/21 at 14:30 Atorvastatin Calcium (Lipitor) 10 mg HS PO ; Start 07/26/21 at 21:00 Clonidine HCl (Catapres) 0.1 mg DAILY PO Last administered on 07/26/21at 17:30; Start 07/26/21 at 18:00 Acetaminophen/ Hydrocodone Bitart (Lortab 5/325) 1 tab PRN Q6HRS PRN PO PAIN; Start 07/26/21 at 17:15 Albuterol/ Ipratropium (Duoneb) 3 ml QID NEB ; Start 07/26/21 at 21:00 Nicotine (Nicoderm Cq 21mg) 21 patch DAILY TD Last administered on 07/26/21at 17:31; Start 07/26/21 at 18:00 Thiamine Mononitrate (Vitamin B-1) 100 mg DAILY PO ; Start 07/31/21 at 09:00 Lorazepam (Ativan Inj) 2 mg PRN Q1HR PRN IV For CIWA 8-14; Start 07/26/21 at 17:30 Lorazepam (Ativan Inj) 4 mg PRN Q1HR PRN IV For CIWA 15 or greater; Start 07/26/21 at 17:30 Thiamine HCl 100 mg/Dextrose 51 ml @ 102 mls/hr 1X ONCE IV ; Start 07/26/21 at 18:00; Stop 07/26/21 at 18:29; Status DC Active Scripts Active Hydrocodone-Apap 5-325 (Hydrocodone Bit/Acetaminophen) 1 Tab Tablet 1 Tab PO PRN Q6HRS PRN Peridex (Chlorhexidine Gluconate) 15 Ml Mouthwash 15-30 Ml PO TID 8 Days Penicillin V Potassium 500 Mg Tablet 1 Tab PO TID Orphenadrine Citrate 100 Mg Tablet.er 1 Tab PO BID PRN [place] 5-325 Tablet (Acetaminophen/Hydrocodone Bitart) 1 Each Tablet 1-2 Each PO PRN Q6HRS PRN as needed for pain Diclofenac Sodium 50 Mg Tablet.dr 1 Tab PO BID PRN Pulmicort Flexhaler (Budesonide) 180 Mcg Aer.pow.ba 2 Puff IH BID Tessalon Perle (Benzonatate) 100 Mg Capsule 1 Cap PO TID [Nicotine 21MG] 1 PATCH Patch 1 Patch TD PRN DAILY PRN Cefdinir 300 Mg Capsule 300 Mg PO BID Proair Hfa Inhaler (Albuterol Sulfate) 8.5 Gm Hfa.aer.ad 2 Puff IH PRN Q4-6HRS PRN 21 Days [place] 5-325 Tablet (Acetaminophen/Hydrocodone Bitart) 1 Each Tablet 1-2 Each PO PRN Q6HRS PRN as needed for pain Meloxicam 7.5 Mg Tablet 7.5 Mg PO DAILY Reported NICODERM CQ 21mg (Nicotine) 1 Each Patch.td24 21 Patch TP DAILY Oxycodone Hcl 5 Mg Capsule 5 Mg PO PRN Q6HRS PRN Clonidine Hcl 0.1 Mg Tablet 0.1 Mg PO DAILY Duoneb 0.5-3(2.5) Mg/3 Ml (Albuterol/Ipratropium) 3 Ml Ampul.neb 3 Ml NEB QID Oxycontin (Oxycodone HCl) 20 Mg Tab.er.12h 20 Mg PO DAILY Promethazine Vc-Codeine Syrup (Promethazine/Phenyleph/Codeine) 473 Ml Syrup 473 Ml PO QID Lipitor (Atorvastatin Calcium) 10 Mg Tablet 10 Mg PO HS Clonidine Hcl 0.1 Mg Tablet 0.1 Mg PO DAILY Allergies Allergies: Coded Allergies: No Known Drug Allergies (Unverified , 10/22/16) ROS General: YES: Chills, Fatigue, Malaise PSYCHOLOGICAL ROS: YES: Anxiety, Irritablity, Sleep disturbances Eyes: Yes Blurry vision; No Decreased vision, No Double vision, No Dry eyes, No Excessive tearing, No Eye Pain, No Itchy Eyes, No Loss of vision, No Photophobia, No Scotomata, No Uses contacts, No Uses glasses, No Other Respiratory: YES: Cough, SOB with excertion, Sputum Changes; No: Hemoptysis, Orthopnea, Pleuritic Pain, Shortness of breath, Stridor, Tachypnea, Wheezing, Other Cardiovascular: No Chest Pain, No Palpitations, No Orthopnea, No Paroxysmal Noc. Dyspnea, No Edema, No Lt Headedness, No Other Gastrointestinal: No Nausea, No Vomiting, No Abdominal Pain, No Diarrhea, No Constipation, No Melena, No Hematochezia, No Other Genitourinary: No Dysuria, No Frequency, No Incontinence, No Hematuria, No Retention, No Discharge, No Urgency, No Pain, No Flank Pain, No Other, No , No , No , No , No , No , No Musculoskeletal: Yes Joint Stiffness; No Gait Disturbance, No Joint Pain, No Joint Swelling, No Muscle Pain, No Muscular Weakness, No Pain In:, No Swelling In:, No Other Neurological: No Behavorial Changes, No Bowel/Bladder ControlChng, No Confusion, No Dizziness, No Gait Disturbance, No Headaches, No Impaired Coord/balance, No Memory Loss, No Numbness/Tingling, No Seizures, No Speech Problems, No Tremors, No Visual Changes, No Weakness, No Other Skin: Yes Dry Skin, Yes Mole Changes, Yes Rash; No Eczema, No Hair Changes, No Lumps, No Mottling, No Nail Changes, No Pruritus, No Skin Lesion Changes, No Other, No Acne Physical Exam General: Alert, Oriented X3, Cooperative, No acute distress HEENT: Atraumatic, PERRLA, Mucous membr. moist/pink, Other (nasal turbinates red, full ) Lungs: Clear to auscultation Heart: S1S2, no thrills, no gallops, no murmurs Abdomen: Normal bowel sounds, Soft Rectal Exam: not examined Extremities: No cyanosis, No edema Skin: No breakdown, No significant lesion Neuro: Normal gait, Normal speech, Sensation intact, Cranial nerves 3-12 NL Psych/Mental Status: Mental status NL, Mood NL Vitals Vitals Vital Signs Date Time Temp Pulse Resp B/P (MAP) Pulse Ox O2 Delivery O2 Flow Rate FiO2 07/26/21 18:47 106 18 110/64 (79) 98 Room Air 07/26/21 16:31 98.3 98.3 Labs Labs Laboratory Tests Test 07/26/21 11:35 07/26/21 12:12 07/26/21 13:00 07/26/21 14:02 White Blood Count 7.2 x10^3/uL (4.0-11.0) Red Blood Count 4.93 x10^6/uL (3.50-5.40) Hemoglobin 15.5 g/dL (12.0-15.5) Hematocrit 46.6 % (36.0-47.0) Mean Corpuscular Volume 95 fL (79-100) Mean Corpuscular Hemoglobin 32 pg (25-35) Mean Corpuscular Hemoglobin Concent 33 g/dL (31-37) Red Cell Distribution Width 13.0 % (11.5-14.5) Platelet Count 486 x10^3/uL (140-400) Neutrophils (%) (Auto) 81 % (31-73) Lymphocytes (%) (Auto) 13 % (24-48) Monocytes (%) (Auto) 5 % (0-9) Eosinophils (%) (Auto) 0 % (0-3) Basophils (%) (Auto) 1 % (0-3) Neutrophils # (Auto) 5.9 x10^3/uL (1.8-7.7) Lymphocytes # (Auto) 1.0 x10^3/uL (1.0-4.8) Monocytes # (Auto) 0.3 x10^3/uL (0.0-1.1) Eosinophils # (Auto) 0.0 x10^3/uL (0.0-0.7) Basophils # (Auto) 0.1 x10^3/uL (0.0-0.2) Sodium Level 136 mmol/L (136-145) Potassium Level 3.8 mmol/L (3.5-5.1) Chloride Level 97 mmol/L (98-107) Carbon Dioxide Level 25 mmol/L (21-32) Anion Gap 14 (6-14) Blood Urea Nitrogen 24 mg/dL (7-20) Creatinine 1.5 mg/dL (0.6-1.0) Estimated GFR (Cockcroft-Gault) 42.9 BUN/Creatinine Ratio 16 (6-20) Glucose Level 113 mg/dL (70-99) Lactic Acid Level 3.7 mmol/L (0.4-2.0) Calcium Level 10.3 mg/dL (8.5-10.1) Phosphorus Level 3.8 mg/dL (2.6-4.7) Magnesium Level 2.1 mg/dL (1.8-2.4) Total Bilirubin 0.4 mg/dL (0.2-1.0) Aspartate Amino Transf (AST/SGOT) 16 U/L (15-37) Alanine Aminotransferase (ALT/SGPT) 18 U/L (14-59) Alkaline Phosphatase 130 U/L (46-116) Creatine Kinase 56 U/L (26-192) Troponin I High Sensitivity 10 ng/L (4-50) 15 ng/L (4-50) SH-Saa-X-Type Natriuretic Peptide 252 pg/mL (0-124) Total Protein 9.6 g/dL (6.4-8.2) Albumin 4.1 g/dL (3.4-5.0) Albumin/Globulin Ratio 0.7 (1.0-1.7) Lipase 239 U/L (73-393) Thyroid Stimulating Hormone (TSH) 0.267 uIU/mL (0.358-3.74) Influenza Type A Antigen Negative (NEGATIVE) Influenza Type B Antigen Negative (NEGATIVE) SARS-CoV-2 Antigen (Rapid) Negative (NEGATIVE) Urine Collection Type Unknown Urine Color Yellow Urine Clarity Clear Urine pH 7.0 (<5.0-8.0) Urine Specific [place] 1.025 (1.000-1.030) Urine Protein 100 mg/dL (NEG-TRACE) Urine Glucose (UA) Negative mg/dL (NEG) Urine Ketones (Stick) Negative mg/dL (NEG) Urine Blood Trace (NEG) Urine Nitrite Negative (NEG) Urine Bilirubin Negative (NEG) Urine Urobilinogen Dipstick 0.2 mg/dL (0.2 mg/dL) Urine Leukocyte Esterase Negative (NEG) Urine RBC 0 /HPF (0-2) Urine WBC 0 /HPF (0-4) Urine Squamous Epithelial Cells Occ /LPF Urine Bacteria 0 /HPF (0-FEW) Urine Opiates Screen Pos (NEG) Urine Methadone Screen Neg (NEG) Urine Barbiturates Neg (NEG) Urine Phencyclidine Screen Neg (NEG) Urine Amphetamine/Methamphetamine Neg (NEG) Urine Benzodiazepines Screen Neg (NEG) Urine Cocaine Screen Pos (NEG) Urine Cannabinoids Screen Neg (NEG) Urine Ethyl Alcohol Pos (NEG) Test 07/26/21 14:50 Lactic Acid Level 2.0 mmol/L (0.4-2.0) Laboratory Tests Test 07/26/21 11:35 07/26/21 12:12 07/26/21 13:00 07/26/21 14:02 White Blood Count 7.2 x10^3/uL (4.0-11.0) Red Blood Count 4.93 x10^6/uL (3.50-5.40) Hemoglobin 15.5 g/dL (12.0-15.5) Hematocrit 46.6 % (36.0-47.0) Mean Corpuscular Volume 95 fL (79-100) Mean Corpuscular Hemoglobin 32 pg (25-35) Mean Corpuscular Hemoglobin Concent 33 g/dL (31-37) Red Cell Distribution Width 13.0 % (11.5-14.5) Platelet Count 486 x10^3/uL (140-400) Neutrophils (%) (Auto) 81 % (31-73) Lymphocytes (%) (Auto) 13 % (24-48) Monocytes (%) (Auto) 5 % (0-9) Eosinophils (%) (Auto) 0 % (0-3) Basophils (%) (Auto) 1 % (0-3) Neutrophils # (Auto) 5.9 x10^3/uL (1.8-7.7) Lymphocytes # (Auto) 1.0 x10^3/uL (1.0-4.8) Monocytes # (Auto) 0.3 x10^3/uL (0.0-1.1) Eosinophils # (Auto) 0.0 x10^3/uL (0.0-0.7) Basophils # (Auto) 0.1 x10^3/uL (0.0-0.2) Sodium Level 136 mmol/L (136-145) Potassium Level 3.8 mmol/L (3.5-5.1) Chloride Level 97 mmol/L (98-107) Carbon Dioxide Level 25 mmol/L (21-32) Anion Gap 14 (6-14) Blood Urea Nitrogen 24 mg/dL (7-20) Creatinine 1.5 mg/dL (0.6-1.0) Estimated GFR (Cockcroft-Gault) 42.9 BUN/Creatinine Ratio 16 (6-20) Glucose Level 113 mg/dL (70-99) Lactic Acid Level 3.7 mmol/L (0.4-2.0) Calcium Level 10.3 mg/dL (8.5-10.1) Phosphorus Level 3.8 mg/dL (2.6-4.7) Magnesium Level 2.1 mg/dL (1.8-2.4) Total Bilirubin 0.4 mg/dL (0.2-1.0) Aspartate Amino Transf (AST/SGOT) 16 U/L (15-37) Alanine Aminotransferase (ALT/SGPT) 18 U/L (14-59) Alkaline Phosphatase 130 U/L (46-116) Creatine Kinase 56 U/L (26-192) Troponin I High Sensitivity 10 ng/L (4-50) 15 ng/L (4-50) ZL-Tfp-Q-Type Natriuretic Peptide 252 pg/mL (0-124) Total Protein 9.6 g/dL (6.4-8.2) Albumin 4.1 g/dL (3.4-5.0) Albumin/Globulin Ratio 0.7 (1.0-1.7) Lipase 239 U/L (73-393) Thyroid Stimulating Hormone (TSH) 0.267 uIU/mL (0.358-3.74) Influenza Type A Antigen Negative (NEGATIVE) Influenza Type B Antigen Negative (NEGATIVE) SARS-CoV-2 Antigen (Rapid) Negative (NEGATIVE) Urine Collection Type Unknown Urine Color Yellow Urine Clarity Clear Urine pH 7.0 (<5.0-8.0) Urine Specific [place] 1.025 (1.000-1.030) Urine Protein 100 mg/dL (NEG-TRACE) Urine Glucose (UA) Negative mg/dL (NEG) Urine Ketones (Stick) Negative mg/dL (NEG) Urine Blood Trace (NEG) Urine Nitrite Negative (NEG) Urine Bilirubin Negative (NEG) Urine Urobilinogen Dipstick 0.2 mg/dL (0.2 mg/dL) Urine Leukocyte Esterase Negative (NEG) Urine RBC 0 /HPF (0-2) Urine WBC 0 /HPF (0-4) Urine Squamous Epithelial Cells Occ /LPF Urine Bacteria 0 /HPF (0-FEW) Urine Opiates Screen Pos (NEG) Urine Methadone Screen Neg (NEG) Urine Barbiturates Neg (NEG) Urine Phencyclidine Screen Neg (NEG) Urine Amphetamine/Methamphetamine Neg (NEG) Urine Benzodiazepines Screen Neg (NEG) Urine Cocaine Screen Pos (NEG) Urine Cannabinoids Screen Neg (NEG) Urine Ethyl Alcohol Pos (NEG) Test 07/26/21 14:50 Lactic Acid Level 2.0 mmol/L (0.4-2.0) VTE Prophylaxis Ordered VTE Prophylaxis Devices: No VTE Pharmacological Prophylaxi: Yes Assessment/Plan Assessment/Plan accelerated hypertension, admit to ICU on cardene gtt, will wean off, for clonidine, B-ria contraindicated for Cocaine use polysubstance abuse, sinusitis, cough with producition, will give abx, tobacco use disorder CKD3 ICU admit 35 minutes Justifications for Admission Other Justification CARMEN FALK MD Jul 26, 2021 19:02
[2021-07-26] MEDS: IPRATRPIUM/ALBUTEROL 0.5/2.5MG 3 ML NEBU. NEB SCH (20:24)
[2021-07-26] MEDS: FLUTICASONE 50MCG/NASAL SPRAY 16GM BOTTLE. NS SCH (20:47)
[2021-07-26] MEDS: DOXYCYCLINE HYCLATE 100 MG TABLET PO SCH (20:47)
[2021-07-26] MEDS: ATORVASTATIN CALCIUM 10 MG TABLET. PO SCH (20:47)
[2021-07-26] MEDS: ENOXAPARIN 40 MG/0.4 ML SYRINGE. SQ SCH (20:53)
[2021-07-26] MEDS: HYDROcodone/APAP 5/325MG 1 TAB TABLET PO PRN (20:54)
[2021-07-26] MEDS ORDERED: cefTRIAXone IV Push 1 GM VIAL. IVP SCH (21:00)
[2021-07-26] MEDS: CALCIUM CARBONATE 500 MG TAB.CHEW PO PRN (21:44)
[2021-07-26] MEDS ORDERED: FAMOTIDINE 20 MG TABLET. PO SCH (22:00)
[2021-07-27] VITALS (13 sets, daily range): BP systolic 99–173; BP diastolic 59–89
[2021-07-27 03:40] LABS: BASO % 0 % (0-3); EOS % 0 % (0-3); HEMATOCRIT 37.3 % (36.0-47.0); HEMOGLOBIN 12.4 g/dL (12.0-15.5); LYMPH % 10 % (24-48); MEAN CORPUSCULAR HEMOGLOBIN 31 pg (25-35); MEAN CORPUSCULAR HGB CONC 33 g/dL (31-37); MEAN CORPUSCULAR VOLUME 93 fL (79-100); MONO # 0.2 x10^3/uL (0.0-1.1); MONO % 2 % (0-9); NEUT # 8.6 x10^3/uL (1.8-7.7); NEUT % 87 % (31-73); PLATELET COUNT 382 x10^3/uL (140-400); RED BLOOD COUNT 4.01 x10^6/uL (3.50-5.40); RED CELL DISTRIBUTION WIDTH 12.8 % (11.5-14.5); WHITE BLOOD COUNT 9.9 x10^3/uL (4.0-11.0)
[2021-07-27 04:01] LABS: ALBUMIN 2.9 g/dL (3.4-5.0)
[2021-07-27 04:02] LABS: ALBUMIN/GLOBULIN RATIO 0.7 (1.0-1.7); CREATININE 1.6 mg/dL (0.6-1.0); GFR 39.8; POTASSIUM 4.5 mmol/L (3.5-5.1); TOTAL BILIRUBIN 0.4 mg/dL (0.2-1.0)
[2021-07-27] MEDS: HYDROcodone/APAP 5/325MG 1 TAB TABLET PO PRN ×3 (05:25→17:41)
[2021-07-27] MEDS: IPRATRPIUM/ALBUTEROL 0.5/2.5MG 3 ML NEBU. NEB SCH ×4 (07:47→20:15)
[2021-07-27] MEDS: cloNIDine HCL 0.1 MG TABLET PO SCH ×2 (08:30→16:08)
[2021-07-27] MEDS: DOXYCYCLINE HYCLATE 100 MG TABLET PO SCH (08:41)
[2021-07-27] MEDS: FLUTICASONE 50MCG/NASAL SPRAY 16GM BOTTLE. NS SCH (08:41)
[2021-07-27] MEDS: NICOTINE 21MG PATCH. TD SCH (08:43)
[2021-07-27] MEDS: CALCIUM CARBONATE 500 MG TAB.CHEW PO PRN ×2 (08:45→12:56)
[2021-07-27] MEDS: PANTOPRAZOLE 40 MG TABLET.DR. PO SCH (11:45)
--- NOTE | 2021-07-27 12:00 | PDOC ---
[employer] PROGRESS NOTE Date of Service DOS: DATE: 07/27/21 TIME: 11:58 Chief Complaint Chief Complaint accelerated hypertension, admit to ICU on cardene gtt, --> off cardene drip now B-ria contraindicated for Cocaine use polysubstance abuse, d/c antibiotics tobacco use disorder CKD3 GERD --> switch pepcid to PPI; as needed GI cocktail. She is tolerating p.o. intake no active bleeding likely just follow-up with GI outpatient History of Present Illness History of Present Illness 07/27 Patient evaluated examined at bedside. Resting in bed eating lunch. Is still having some pain with eating describes it as a burning pain in the middle of her chest. Switching to Protonix from Pepcid today. Is having some improvement though. Blood pressure notably improved off Cardene drip. Okay to transfer out of ICU. Discussed with bedside RN. Vitals/I&O Vitals/I&O: Vital Signs Date Time Temp Pulse Resp B/P (MAP) Pulse Ox O2 Delivery O2 Flow Rate FiO2 07/27/21 11:47 Room Air 07/27/21 08:58 85 125/63 (83) 100 07/27/21 07:30 98.1 18 98.1 07/27/21 02:00 97.0 I & O 07/26/21 07/26/21 07/27/21 15:00 23:00 07:00 Intake Total 2000 ml 360 ml 200 ml Output Total 0 ml 0 ml Balance 2000 ml 360 ml 200 ml Physical Exam General: Alert, Oriented X3, Cooperative, No acute distress Heart: Regular rate Lungs: Clear Abdomen: Normal bowel sounds, Soft Extremities: No cyanosis, No edema Skin: No breakdown, No significant lesion Labs Labs: Laboratory Tests Test 07/26/21 12:12 07/26/21 13:00 07/26/21 14:02 07/26/21 14:50 Influenza Type A Antigen Negative (NEGATIVE) Influenza Type B Antigen Negative (NEGATIVE) SARS-CoV-2 Antigen (Rapid) Negative (NEGATIVE) Urine Collection Type Unknown Urine Color Yellow Urine Clarity Clear Urine pH 7.0 (<5.0-8.0) Urine Specific [place] 1.025 (1.000-1.030) Urine Protein 100 mg/dL (NEG-TRACE) Urine Glucose (UA) Negative mg/dL (NEG) Urine Ketones (Stick) Negative mg/dL (NEG) Urine Blood Trace (NEG) Urine Nitrite Negative (NEG) Urine Bilirubin Negative (NEG) Urine Urobilinogen Dipstick 0.2 mg/dL (0.2 mg/dL) Urine Leukocyte Esterase Negative (NEG) Urine RBC 0 /HPF (0-2) Urine WBC 0 /HPF (0-4) Urine Squamous Epithelial Cells Occ /LPF Urine Bacteria 0 /HPF (0-FEW) Urine Opiates Screen Pos (NEG) Urine Methadone Screen Neg (NEG) Urine Barbiturates Neg (NEG) Urine Phencyclidine Screen Neg (NEG) Urine Amphetamine/Methamphetamine Neg (NEG) Urine Benzodiazepines Screen Neg (NEG) Urine Cocaine Screen Pos (NEG) Urine Cannabinoids Screen Neg (NEG) Urine Ethyl Alcohol Pos (NEG) Troponin I High Sensitivity 15 ng/L (4-50) Lactic Acid Level 2.0 mmol/L (0.4-2.0) Test 07/26/21 19:00 07/27/21 03:15 Troponin I High Sensitivity 18 ng/L (4-50) White Blood Count 9.9 x10^3/uL (4.0-11.0) Red Blood Count 4.01 x10^6/uL (3.50-5.40) Hemoglobin 12.4 g/dL (12.0-15.5) Hematocrit 37.3 % (36.0-47.0) Mean Corpuscular Volume 93 fL (79-100) Mean Corpuscular Hemoglobin 31 pg (25-35) Mean Corpuscular Hemoglobin Concent 33 g/dL (31-37) Red Cell Distribution Width 12.8 % (11.5-14.5) Platelet Count 382 x10^3/uL (140-400) Neutrophils (%) (Auto) 87 % (31-73) Lymphocytes (%) (Auto) 10 % (24-48) Monocytes (%) (Auto) 2 % (0-9) Eosinophils (%) (Auto) 0 % (0-3) Basophils (%) (Auto) 0 % (0-3) Neutrophils # (Auto) 8.6 x10^3/uL (1.8-7.7) Lymphocytes # (Auto) 1.0 x10^3/uL (1.0-4.8) Monocytes # (Auto) 0.2 x10^3/uL (0.0-1.1) Eosinophils # (Auto) 0.0 x10^3/uL (0.0-0.7) Basophils # (Auto) 0.0 x10^3/uL (0.0-0.2) Sodium Level 135 mmol/L (136-145) Potassium Level 4.5 mmol/L (3.5-5.1) Chloride Level 102 mmol/L (98-107) Carbon Dioxide Level 23 mmol/L (21-32) Anion Gap 10 (6-14) Blood Urea Nitrogen 29 mg/dL (7-20) Creatinine 1.6 mg/dL (0.6-1.0) Estimated GFR (Cockcroft-Gault) 39.8 BUN/Creatinine Ratio 18 (6-20) Glucose Level 133 mg/dL (70-99) Calcium Level 9.0 mg/dL (8.5-10.1) Total Bilirubin 0.4 mg/dL (0.2-1.0) Aspartate Amino Transf (AST/SGOT) 13 U/L (15-37) Alanine Aminotransferase (ALT/SGPT) 14 U/L (14-59) Alkaline Phosphatase 92 U/L (46-116) Total Protein 7.0 g/dL (6.4-8.2) Albumin 2.9 g/dL (3.4-5.0) Albumin/Globulin Ratio 0.7 (1.0-1.7) Assessment and Plan Assessmemt and Plan Problems Medical Problems: (1) Chest pain Status: Acute (2) Hypertensive emergency Status: Acute (3) Lactic acidosis Status: Acute (4) Nausea and vomiting Status: Acute (5) Polysubstance abuse Status: Acute (6) Upper abdominal pain Status: Acute Comment Review of Relevant I have reviewed the following items irene (where applicable) has been applied. Medications: Current Medications Medications (Trade) Dose Ordered Sig/Alexx Route PRN Reason Start Time Stop Time Status Last Admin Dose Admin Sodium Chloride 1,000 ml @ 1,000 mls/hr 1X ONCE IV 07/26/21 13:00 07/26/21 13:59 DC 07/26/21 12:57 Morphine Sulfate (Morphine Sulfate) 4 mg 1X ONCE IVP 07/26/21 13:00 07/26/21 13:01 DC 07/26/21 12:59 Iohexol (Omnipaque 300 Mg/ml) 60 ml 1X ONCE IV 07/26/21 13:30 07/26/21 13:31 DC 07/26/21 13:33 Nicardipine HCl 50 mg/Sodium Chloride 250 ml @ 25 mls/hr CONT PRN IV PER PROTOCOL 07/26/21 14:30 07/26/21 14:56 Atorvastatin Calcium (Lipitor) 10 mg HS PO 07/26/21 21:00 07/26/21 20:47 Clonidine HCl (Catapres) 0.1 mg DAILY PO 07/26/21 18:00 07/26/21 17:30 Acetaminophen/ Hydrocodone Bitart (Lortab 5/325) 1 tab PRN Q6HRS PRN PO PAIN 07/26/21 17:15 07/27/21 11:47 Albuterol/ Ipratropium (Duoneb) 3 ml QID NEB 07/26/21 21:00 07/27/21 07:47 Nicotine (Nicoderm Cq 21mg) 21 patch DAILY TD 07/26/21 18:00 07/27/21 08:43 Thiamine HCl 100 mg/Dextrose 51 ml @ 102 mls/hr 1X ONCE IV 07/26/21 18:00 07/26/21 18:29 DC 07/26/21 20:47 Fluticasone Propionate (Flonase) 2 spray DAILY NS 07/26/21 21:00 07/27/21 08:41 Ceftriaxone Sodium (Rocephin) 1 gm Q24H IVP 07/26/21 21:00 07/27/21 11:33 DC 07/26/21 20:48 Doxycycline Hyclate (Vibra-Tab) 100 mg BID PO 07/26/21 21:00 07/27/21 11:34 DC 07/27/21 08:41 Enoxaparin Sodium (Lovenox 40mg Syringe) 40 mg Q24H SQ 07/26/21 21:00 07/26/21 20:53 Famotidine (Pepcid) 20 mg QHS PO 07/26/21 22:00 07/27/21 11:33 DC 07/26/21 21:44 Calcium Carbonate/ Glycine (Tums) 500 mg PRN TID PRN PO INDIGESTION 07/26/21 21:30 07/27/21 08:45 Pantoprazole Sodium (Protonix) 40 mg DAILYAC PO 07/27/21 11:30 07/27/21 11:45 Justifications for Admission Other Justification JAG HOWELL MD Jul 27, 2021 12:00
[2021-07-27] MEDS: LIDO:MAALOX 1:1 20 ML SINGLE DOSE. PO PRN ×2 (16:10→21:01)
[2021-07-27] MEDS: LACTOBACILLUS RHAMNOSUS GG 1 CAPSULE. PO SCH (21:01)
[2021-07-27] MEDS: ATORVASTATIN CALCIUM 10 MG TABLET. PO SCH (21:01)
[2021-07-27] MEDS: ENOXAPARIN 40 MG/0.4 ML SYRINGE. SQ SCH (21:02)
[2021-07-28] MEDS: HYDROcodone/APAP 5/325MG 1 TAB TABLET PO PRN ×3 (05:08→20:01)
[2021-07-28] MEDS: PANTOPRAZOLE 40 MG TABLET.DR. PO SCH (05:08)
[2021-07-28 07:00] VITALS: BP 136/71
[2021-07-28] MEDS: IPRATRPIUM/ALBUTEROL 0.5/2.5MG 3 ML NEBU. NEB SCH ×2 (07:11→19:51)
[2021-07-28] MEDS: LIDO:MAALOX 1:1 20 ML SINGLE DOSE. PO PRN ×3 (09:01→17:41)
[2021-07-28] MEDS: NICOTINE 21MG PATCH. TD SCH (09:02)
[2021-07-28] MEDS: cloNIDine HCL 0.1 MG TABLET PO SCH (09:02)
[2021-07-28] MEDS: LACTOBACILLUS RHAMNOSUS GG 1 CAPSULE. PO SCH ×2 (09:02→20:01)
[2021-07-28] MEDS: FLUTICASONE 50MCG/NASAL SPRAY 16GM BOTTLE. NS SCH (09:03)
[2021-07-28 10:38] VITALS: BP 105/58
[2021-07-28 15:00] VITALS: BP 115/64
[2021-07-28] MEDS: SENNOSIDES 8.6 MG TABLET PO PRN ×2 (17:41→20:01)
[2021-07-28 19:28] VITALS: BP 148/93
[2021-07-28] MEDS: ATORVASTATIN CALCIUM 10 MG TABLET. PO SCH (20:02)
[2021-07-28] MEDS: ENOXAPARIN 40 MG/0.4 ML SYRINGE. SQ SCH (20:09)
[2021-07-29] VITALS (7 sets, daily range): BP systolic 105–158; BP diastolic 66–92
[2021-07-29] MEDS: HYDROcodone/APAP 5/325MG 1 TAB TABLET PO PRN ×4 (01:52→21:35)
[2021-07-29] MEDS: IPRATRPIUM/ALBUTEROL 0.5/2.5MG 3 ML NEBU. NEB SCH ×2 (07:33→21:00)
[2021-07-29] MEDS: cloNIDine HCL 0.1 MG TABLET PO SCH (08:15)
[2021-07-29] MEDS: LACTOBACILLUS RHAMNOSUS GG 1 CAPSULE. PO SCH ×2 (08:15→21:27)
[2021-07-29] MEDS: NICOTINE 21MG PATCH. TD SCH (08:15)
[2021-07-29] MEDS: PANTOPRAZOLE 40 MG TABLET.DR. PO SCH (08:15)
[2021-07-29] MEDS: LIDO:MAALOX 1:1 20 ML SINGLE DOSE. PO PRN ×3 (08:16→17:22)
[2021-07-29] MEDS: FLUTICASONE 50MCG/NASAL SPRAY 16GM BOTTLE. NS SCH (12:08)
--- NOTE | 2021-07-29 14:18 | PDOC ---
[facility] PROGRESS NOTE Date of Service DOS: Late entry July 28 Chief Complaint Chief Complaint accelerated hypertension, admit to ICU on cardene gtt, --> off cardene drip now B-ria contraindicated for Cocaine use polysubstance abuse, d/c antibiotics tobacco use disorder CKD3 GERD --> switch pepcid to PPI; as needed GI cocktail. She is tolerating p.o. intake no active bleeding likely just follow-up with GI outpatient History of Present Illness History of Present Illness 07/28 Patient evaluated examined at bedside. Resting in bed was unable to wake her up meeting the task or to questions. Chart reviewed. Discussed with bedside RN. Pressures improving. 07/27 Patient evaluated examined at bedside. Resting in bed eating lunch. Is still having some pain with eating describes it as a burning pain in the middle of her chest. Switching to Protonix from Pepcid today. Is having some improvement though. Blood pressure notably improved off Cardene drip. Okay to transfer out of ICU. Discussed with bedside RN. Vitals/I&O Vitals/I&O: Vital Signs Date Time Temp Pulse Resp B/P (MAP) Pulse Ox O2 Delivery O2 Flow Rate FiO2 07/29/21 10:25 98.1 90 18 125/73 (90) 98 Room Air 98.1 07/28/21 13:54 95.0 I & O 07/28/21 07/28/21 07/29/21 15:00 23:00 07:00 Intake Total 320 ml 300 ml Balance 320 ml 300 ml Physical Exam General: Alert, Oriented X3, Cooperative, No acute distress Heart: Regular rate Lungs: Clear Abdomen: Normal bowel sounds, Soft Extremities: No cyanosis, No edema Skin: No breakdown, No significant lesion Assessment and Plan Assessmemt and Plan Problems Medical Problems: (1) Chest pain Status: Acute (2) Hypertensive emergency Status: Acute (3) Lactic acidosis Status: Acute (4) Nausea and vomiting Status: Acute (5) Polysubstance abuse Status: Acute (6) Upper abdominal pain Status: Acute Comment Review of Relevant I have reviewed the following items irene (where applicable) has been applied. Medications: Current Medications Medications (Trade) Dose Ordered Sig/Alexx Route PRN Reason Start Time Stop Time Status Last Admin Dose Admin Nicotine (Nicoderm Cq 21mg) 1 patch DAILY TD 07/29/21 09:00 07/29/21 08:15 Sennosides (Senna) 8.6 mg PRN BID PRN PO CONSTIPATION 07/28/21 14:30 07/28/21 20:01 Justifications for Admission Other Justification JAG HOWELL MD Jul 29, 2021 14:18
[2021-07-29] MEDS: SENNOSIDES 8.6 MG TABLET PO PRN (14:48)
[2021-07-29] MEDS: NICOTINE POLACRILEX 2MG GUM PACKAGE of 12. BC PRN ×2 (18:31→21:28)
[2021-07-29] MEDS: ENOXAPARIN 40 MG/0.4 ML SYRINGE. SQ SCH (21:00)
[2021-07-29] MEDS: ATORVASTATIN CALCIUM 10 MG TABLET. PO SCH (21:35)
[2021-07-30 03:49] VITALS: BP 148/81
[2021-07-30] MEDS: PANTOPRAZOLE 40 MG TABLET.DR. PO SCH ×2 (06:39→15:46)
[2021-07-30] MEDS: HYDROcodone/APAP 5/325MG 1 TAB TABLET PO PRN ×3 (06:40→19:31)
[2021-07-30] MEDS: NICOTINE 21MG PATCH. TD SCH (06:42)
[2021-07-30 07:00] VITALS: BP 167/85
[2021-07-30] MEDS: IPRATRPIUM/ALBUTEROL 0.5/2.5MG 3 ML NEBU. NEB SCH ×2 (07:15→20:00)
[2021-07-30] MEDS: LACTOBACILLUS RHAMNOSUS GG 1 CAPSULE. PO SCH ×2 (08:06→21:09)
[2021-07-30] MEDS: cloNIDine HCL 0.1 MG TABLET PO SCH (08:08)
[2021-07-30] MEDS: LIDO:MAALOX 1:1 20 ML SINGLE DOSE. PO PRN ×3 (08:15→19:31)
[2021-07-30] MEDS: SENNOSIDES 8.6 MG TABLET PO PRN (08:15)
[2021-07-30] MEDS: FLUTICASONE 50MCG/NASAL SPRAY 16GM BOTTLE. NS SCH (08:15)
[2021-07-30 11:00] VITALS: BP 125/72
--- NOTE | 2021-07-30 14:21 | PDOC2 ---
CONSULT Date of Consult Date of Consult DATE: 07/30/21 TIME: 14:20 Reason for Consult Reason for Consult: Epigastric and chest pain History of Present Illness Reason for Visit: This is a 61-year-old female who presents with a history of left chest and epigastric pain that is been progressive over the past few months. She dates it back to when she broke her ribs she said a few months ago but actually in the chart is November of last year. She has been treated intermittently since then with hydrocodone and she takes a lot of [id number] Tylenol, aspirin and NSAIDs as well. She presented with chest pain and with hypertensive emergency and was treated and evaluated. Initial CT scan of the chest abdomen and pelvis was unrevealing for any acute abnormalities. Chest x-ray revealed old healed left- sided rib fractures consistent with her history. We were asked to see her regarding these complaints. She denies heartburn until the last few days. Prior to that she said she never had heartburn, dysphagia, epigastric pain. She does admit to chronic mild constipation which worsened somewhat when she was on her pain medications. She has never had an upper endoscopy or colonoscopy in the past. Her urine drug screen is positive for cocaine which is probably the cause of some of her hypertensive issues although she denies using it recently. Past Medical History Cardiovascular: HTN Pulmonary: Asthma, Bronchitis, COPD Past Surgical History Past Surgical History: No pertinent history Family History Family History: High Cholestrol, Hypertension Social History <1 pack per day ALCOHOL: occassional Drugs: Cocaine, Marijuana Current Problem List Problem List Problems Medical Problems: (1) Chest pain Status: Acute (2) Hypertensive emergency Status: Acute (3) Lactic acidosis Status: Acute (4) Nausea and vomiting Status: Acute (5) Polysubstance abuse Status: Acute (6) Upper abdominal pain Status: Acute Current Medications Current Medications Current Medications Sodium Chloride 1,000 ml @ 1,000 mls/hr 1X ONCE IV Last administered on 07/26/21at 11:45; Start 07/26/21 at 11:30; Stop 07/26/21 at 12:29; Status DC Ondansetron HCl (Zofran) 4 mg 1X ONCE IVP Last administered on 07/26/21at 11:46; Start 07/26/21 at 11:30; Stop 07/26/21 at 11:31; Status DC Fentanyl Citrate (Fentanyl 2ml Vial) 50 mcg 1X ONCE IVP Last administered on 07/26/21at 11:46; Start 07/26/21 at 11:30; Stop 07/26/21 at 11:31; Status DC Methylprednisolone Sodium Succinate (SOLU-Medrol 125MG VIAL) 125 mg 1X ONCE IV Last administered on 07/26/21at 11:46; Start 07/26/21 at 11:30; Stop 07/26/21 at 11:31; Status DC Albuterol/ Ipratropium (Duoneb) 3 ml 1X ONCE NEB Last administered on 07/26/21at 12:03; Start 07/26/21 at 11:30; Stop 07/26/21 at 11:31; Status DC Sodium Chloride 1,000 ml @ 1,000 mls/hr 1X ONCE IV Last administered on 07/26/21at 12:57; Start 07/26/21 at 13:00; Stop 07/26/21 at 13:59; Status DC Morphine Sulfate (Morphine Sulfate) 4 mg 1X ONCE IVP Last administered on 07/26/21at 12:59; Start 07/26/21 at 13:00; Stop 07/26/21 at 13:01; Status DC Iohexol (Omnipaque 300 Mg/ml) 60 ml 1X ONCE IV Last administered on 07/26/21at 13:33; Start 07/26/21 at 13:30; Stop 07/26/21 at 13:31; Status DC Info (CONTRAST GIVEN -- Rx MONITORING) 1 each PRN DAILY PRN MC SEE COMMENTS; Start 07/26/21 at 13:45; Stop 07/28/21 at 13:44; Status DC Nicardipine HCl 50 mg/Sodium Chloride 250 ml @ 25 mls/hr CONT PRN IV PER PROTOCOL Last administered on 07/26/21at 14:56; Start 07/26/21 at 14:30; Stop 07/28/21 at 10:46; Status DC Atorvastatin Calcium (Lipitor) 10 mg HS PO Last administered on 07/29/21at 21:35; Start 07/26/21 at 21:00 Clonidine HCl (Catapres) 0.1 mg DAILY PO Last administered on 07/30/21at 08:08; Start 07/26/21 at 18:00 Acetaminophen/ Hydrocodone Bitart (Lortab 5/325) 1 tab PRN Q6HRS PRN PO PAIN Last administered on 07/30/21at 11:58; Start 07/26/21 at 17:15 Albuterol/ Ipratropium (Duoneb) 3 ml QID NEB Last administered on 07/27/21at 11:59; Start 07/26/21 at 21:00; Stop 07/27/21 at 16:47; Status DC Nicotine (Nicoderm Cq 21mg) 21 patch DAILY TD Last administered on 07/28/21at 09:02; Start 07/26/21 at 18:00; Stop 07/28/21 at 10:42; Status DC Thiamine Mononitrate (Vitamin B-1) 100 mg DAILY PO ; Start 07/31/21 at 09:00 Lorazepam (Ativan Inj) 2 mg PRN Q1HR PRN IV For CIWA 8-14; Start 07/26/21 at 17:30 Lorazepam (Ativan Inj) 4 mg PRN Q1HR PRN IV For CIWA 15 or greater; Start 07/26/21 at 17:30 Thiamine HCl 100 mg/Dextrose 51 ml @ 102 mls/hr 1X ONCE IV Last administered on 07/26/21at 20:47; Start 07/26/21 at 18:00; Stop 07/26/21 at 18:29; Status DC Fluticasone Propionate (Flonase) 2 spray DAILY NS Last administered on 07/30/21at 08:15; Start 07/26/21 at 21:00 Ceftriaxone Sodium (Rocephin) 1 gm Q24H IVP Last administered on 07/26/21at 20:48; Start 07/26/21 at 21:00; Stop 07/27/21 at 11:33; Status DC Doxycycline Hyclate (Vibra-Tab) 100 mg BID PO Last administered on 07/27/21at 08:41; Start 07/26/21 at 21:00; Stop 07/27/21 at 11:34; Status DC Enoxaparin Sodium (Lovenox 40mg Syringe) 40 mg Q24H SQ Last administered on 07/28/21at 20:09; Start 07/26/21 at 21:00 Famotidine (Pepcid) 20 mg QHS PO Last administered on 07/26/21at 21:44; Start 07/26/21 at 22:00; Stop 07/27/21 at 11:33; Status DC Calcium Carbonate/ Glycine (Tums) 500 mg PRN TID PRN PO INDIGESTION Last administered on 07/27/21 12:56; Start 07/26/21 at 21:30 Lactobacillus Rhamnosus (Culturelle) 1 cap BID PO Last administered on 07/30/21 08:06; Start 07/27/21 at 21:00 Pantoprazole Sodium (Protonix) 40 mg DAILYAC PO Last administered on 07/30/21 06:39; Start 07/27/21 at 11:30 Multi-Ingredient Mouthwash/Gargle (Gi Cocktail) 20 ml PRN QID PRN PO CHEST PAIN Last administered on 07/30/21 12:16; Start 07/27/21 at 11:30 Albuterol/ Ipratropium (Duoneb) 3 ml RTBID NEB Last administered on 07/30/21 07:15; Start 07/27/21 at 20:00 Nicotine (Nicoderm Cq 21mg) 1 patch DAILY TD Last administered on 07/30/21 06:42; Start 07/29/21 at 09:00 Sennosides (Senna) 8.6 mg PRN BID PRN PO CONSTIPATION Last administered on 07/30/21 08:15; Start 07/28/21 at 14:30 Nicotine Polacrilex (Nicorette Gum) 1 each PRN Q1HR PRN BC SMOKING CESSATION Last administered on 07/29/21at 21:28; Start 07/29/21 at 18:30 Active Scripts Active Hydrocodone-Apap 5-325 (Hydrocodone Bit/Acetaminophen) 1 Tab Tablet 1 Tab PO PRN Q6HRS PRN Peridex (Chlorhexidine Gluconate) 15 Ml Mouthwash 15-30 Ml PO TID 8 Days Penicillin V Potassium 500 Mg Tablet 1 Tab PO TID Orphenadrine Citrate 100 Mg Tablet.er 1 Tab PO BID PRN [place] 5-325 Tablet (Acetaminophen/Hydrocodone Bitart) 1 Each Tablet 1-2 Each PO PRN Q6HRS PRN as needed for pain Diclofenac Sodium 50 Mg Tablet.dr 1 Tab PO BID PRN Pulmicort Flexhaler (Budesonide) 180 Mcg Aer.pow.ba 2 Puff IH BID Tessalon Perle (Benzonatate) 100 Mg Capsule 1 Cap PO TID [Nicotine 21MG] 1 PATCH Patch 1 Patch TD PRN DAILY PRN Cefdinir 300 Mg Capsule 300 Mg PO BID Proair Hfa Inhaler (Albuterol Sulfate) 8.5 Gm Hfa.aer.ad 2 Puff IH PRN Q4-6HRS PRN 21 Days [place] 5-325 Tablet (Acetaminophen/Hydrocodone Bitart) 1 Each Tablet 1-2 Each PO PRN Q6HRS PRN as needed for pain Meloxicam 7.5 Mg Tablet 7.5 Mg PO DAILY Reported NICODERM CQ 21mg (Nicotine) 1 Each Patch.td24 21 Patch TP DAILY Oxycodone Hcl 5 Mg Capsule 5 Mg PO PRN Q6HRS PRN Clonidine Hcl 0.1 Mg Tablet 0.1 Mg PO DAILY Duoneb 0.5-3(2.5) Mg/3 Ml (Albuterol/Ipratropium) 3 Ml Ampul.neb 3 Ml NEB QID Oxycontin (Oxycodone HCl) 20 Mg Tab.er.12h 20 Mg PO DAILY Promethazine Vc-Codeine Syrup (Promethazine/Phenyleph/Codeine) 473 Ml Syrup 473 Ml PO QID Lipitor (Atorvastatin Calcium) 10 Mg Tablet 10 Mg PO HS Clonidine Hcl 0.1 Mg Tablet 0.1 Mg PO DAILY Allergies Allergies: Coded Allergies: No Known Drug Allergies (Unverified , 10/22/16) Physical Exam General: Alert, Oriented X3, Cooperative HEENT: Atraumatic Lungs: Clear to auscultation, Other (Mild tenderness on the left ribs) Heart: Regular rate, Normal S1, Normal S2 Abdomen: Normal bowel sounds, Soft, No hepatosplenomegaly, No masses, Other (M ild epigastric tenderness) Extremities: No clubbing Skin: No rashes Neuro: Normal speech Psych/Mental Status: Mental status NL Vitals VITALS Vital Signs Date Time Temp Pulse Resp B/P (MAP) Pulse Ox O2 Delivery O2 Flow Rate FiO2 07/30/21 12:28 Room Air 07/30/21 11:00 97.9 74 17 125/72 (89) [address] scan of the chest, abdomen and pelvis CT CHEST+ABD+PELVIS W Clinical Indication: Reason: chest pain, abdominal pain, n/v / Spl. Instructions: [id number] 60ML, PT BEING HYDRATED / History: Comparison: CT chest with contrast March 01, 2019. CTA abdomen and pelvis with contrast March 10, 2014. Technique: Helical CT imaging of the chest, abdomen and pelvis is performed a fter 60 cc of Omnipaque 300 IV contrast. Oral contrast not administered. Findings: The thyroid is symmetric. There is no adenopathy in the chest. There are subcentimeter mediastinal lymph nodes. Great vessels are normal caliber. Cardiac size is normal, no pericardial effusion. No pleural abnormality is identified. The central airways are patent. There is biapical paraseptal emphysema. There is minimal atelectasis or scarring in the posterior left lower lobe. The lungs are otherwise clear. Stable left adrenal nodule measuring 9 mm. The liver, gallbladder, spleen, pancreas, and right adrenal gland are normal. The abdominal aorta is normal caliber. There is a small left lower pole renal cyst that does not require follow-up. Kidneys enhance symmetrically, no hydronephrosis. The stomach is unremarkable. There is no dilated small bowel. There are no secondary signs of appendicitis. There is no colon wall thickening. The urinary bladder is mildly distended, otherwise normal. The uterus is unremarkable. No pelvic free fluid is identified. Avascular necrosis of the bilateral femoral heads, no deformity of the shape. There is minimal old compression deformity at the superior endplate of the T5 vertebral body. IMPRESSION: 1. There is no acute abnormality in the chest, abdomen, or pelvis. 2. Stable left adrenal nodule. Assessment/Plan Assessment/Plan Epigastric and atypical chest pain. She has several types of chest pain. Some of these started with a rib fracture last year and have persisted since then. Since then she has been taking a variety of medications including NSAIDs with aspirin which may have provoked some gastritis or peptic disease. She now has epigastric and atypical chest pain with a negative CT scan of the chest and abdomen. She has developed some heartburn type symptoms over the past few days as well. It is likely that both the previous chest pain, her dependence on pain medications including NSAIDs and aspirin to treat that pain which may have provoked some gastritis or peptic disease along with acid reflux are probably contributing. Plan: High-dose PPI and antacid therapy. Try to avoid regular use of NSAIDs or aspirin Resume diet as tolerated If symptoms are refractory may eventually consider EGD but is not needed at this time. Outpatient colonoscopy is also recommended as a screening test ALAINA BUNN MD Jul 30, 2021 14:21
[2021-07-30 14:58] VITALS: BP 137/79
--- NOTE | 2021-07-30 18:06 | PDOC ---
[facility] PROGRESS NOTE Date of Service DOS: DATE: 07/30/21 TIME: 18:05 Chief Complaint Chief Complaint accelerated hypertension, admit to ICU on cardene gtt, --> off cardene drip now B-ria contraindicated for Cocaine use polysubstance abuse, d/c antibiotics tobacco use disorder CKD3 GERD --> switch pepcid to PPI; as needed GI cocktail. She is tolerating p.o. intake no active bleeding likely just follow-up with GI outpatient History of Present Illness History of Present Illness 07/30 Evaluated examined at bedside. Seen by GI increase Protonix to twice daily. We will follow up again with her tomorrow. Otherwise no changes from my standpoi nt. 07/29 Evaluated examined at bedside. Resting in bed able to tolerate p.o. intake. Abd pain improving. Discussed with her possible discharge but specifically requesting to see GI; informed her at this point an inpatient EGD is unlikely with symptom improvement. Still insistent on the consult. Will place consult. 07/28 Patient evaluated examined at bedside. Resting in bed was unable to wake her up meeting the task or to questions. Chart reviewed. Discussed with bedside RN. Pressures improving. 07/27 Patient evaluated examined at bedside. Resting in bed eating lunch. Is still having some pain with eating describes it as a burning pain in the middle of her chest. Switching to Protonix from Pepcid today. Is having some improvement though. Blood pressure notably improved off Cardene drip. Okay to transfer out of ICU. Discussed with bedside RN. Vitals/I&O Vitals/I&O: Vital Signs Date Time Temp Pulse Resp B/P (MAP) Pulse Ox O2 Delivery O2 Flow Rate FiO2 07/30/21 14:58 98.2 80 18 137/79 (98) 98 Room Air 98.2 I & O 07/29/21 07/29/21 07/30/21 15:00 23:00 07:00 Intake Total 480 ml 240 ml Balance 480 ml 240 ml Physical Exam General: Alert, Oriented X3, Cooperative Heart: Regular rate, Normal S1, Normal S2 Lungs: Clear Abdomen: Normal bowel sounds, Soft, No hepatosplenomegaly, No masses, Other (Mild epigastric tenderness) Extremities: No clubbing Skin: No rashes Assessment and Plan Assessmemt and Plan Problems Medical Problems: (1) Chest pain Status: Acute (2) Hypertensive emergency Status: Acute (3) Lactic acidosis Status: Acute (4) Nausea and vomiting Status: Acute (5) Polysubstance abuse Status: Acute (6) Upper abdominal pain Status: Acute Comment Review of Relevant I have reviewed the following items irene (where applicable) has been applied. Medications: Current Medications Medications (Trade) Dose Ordered Sig/Alexx Route PRN Reason Start Time Stop Time Status Last Admin Dose Admin Nicotine Polacrilex (Nicorette Gum) 1 each PRN Q1HR PRN BC SMOKING CESSATION 07/29/21 18:30 07/29/21 21:28 Pantoprazole Sodium (Protonix) 40 mg BIDAC PO 07/30/21 15:00 07/30/21 15:46 Justifications for Admission Other Justification JAG HOWELL MD Jul 30, 2021 18:06
[2021-07-30 19:49] VITALS: BP 182/93
[2021-07-30] MEDS: ENOXAPARIN 40 MG/0.4 ML SYRINGE. SQ SCH (21:00)
[2021-07-30] MEDS: ATORVASTATIN CALCIUM 10 MG TABLET. PO SCH (21:09)
[2021-07-30 23:27] VITALS: BP 170/75
[2021-07-31] MEDS: HYDROcodone/APAP 5/325MG 1 TAB TABLET PO PRN ×4 (02:59→23:06)
[2021-07-31 03:25] VITALS: BP 141/91
[2021-07-31 07:55] VITALS: BP 165/85
[2021-07-31] MEDS: LIDO:MAALOX 1:1 20 ML SINGLE DOSE. PO PRN ×4 (07:57→23:06)
[2021-07-31] MEDS: PANTOPRAZOLE 40 MG TABLET.DR. PO SCH ×2 (07:58→16:44)
[2021-07-31] MEDS: THIAMINE 100 MG TABLET. PO SCH (07:58)
[2021-07-31] MEDS: LACTOBACILLUS RHAMNOSUS GG 1 CAPSULE. PO SCH ×2 (07:58→19:45)
[2021-07-31] MEDS: FLUTICASONE 50MCG/NASAL SPRAY 16GM BOTTLE. NS SCH (07:59)
[2021-07-31] MEDS: cloNIDine HCL 0.1 MG TABLET PO SCH (08:01)
[2021-07-31] MEDS: NICOTINE 21MG PATCH. TD SCH (08:01)
[2021-07-31] MEDS: IPRATRPIUM/ALBUTEROL 0.5/2.5MG 3 ML NEBU. NEB SCH ×2 (08:09→20:00)
--- NOTE | 2021-07-31 10:27 | PDOC ---
Date of Service: DATE: 07/31/21 TIME: 10:20 Subjective: Subjective: Constant epigastric and LUQ pain (under ribs). Has to take GI cocktail before meals. Swallows food okay - then hurts worse in epigastrium and feels like it's trying to come back up to midchest. Wants further testing as inpatient - she says Medicaid doesn't pay for those things (scopes) as outpt. "I never had stomach problems til I broke my ribs (in November)." Says another doctor told her she needed an ultrasound of her ribs. Objective: Vital Signs: Vital Signs Date Time Temp Pulse Resp B/P (MAP) Pulse Ox O2 Delivery O2 Flow Rate FiO2 07/31/21 08:09 98 Room Air 07/31/21 08:01 78 149/126 07/31/21 07:55 97.9 18 97.9 Imaging: C/A/P CT IMPRESSION: 1. There is no acute abnormality in the chest, abdomen, or pelvis. 2. Stable left adrenal nodule. PE: GEN: NAD - eating eggs and toast and montalvo LUNGS: CTAB HEART: RRR ABD: NABS, S/ND/NT NEURO/PSYCH: A & O 3 A/P: Epigastric and LUQ pain - suspected GERD in combination with some MSK pain HTN, BARON +cocaine H/o NSAID use and rib fractures COVID and flu negative -- Tolerating diet. Recommend outpt EGD and colonoscopy. Continue PPI, NSAID avoidance. Okay for GI cocktail PRN. Justicifation of Admission Dx: Justifications for Admission: Justification of Admission Dx: N/A SARAH BOSCH Jul 31, 2021 10:27
[2021-07-31 11:00] VITALS: BP 119/72
[2021-07-31 15:00] VITALS: BP 134/79
[2021-07-31 19:00] VITALS: BP 136/71
[2021-07-31] MEDS: ATORVASTATIN CALCIUM 10 MG TABLET. PO SCH (19:45)
--- NOTE | 2021-07-31 19:51 | PDOC ---
[facility] [facility] PROGRESS NOTE Date of Service DOS: DATE: 07/31/21 TIME: 19:50 Chief Complaint Chief Complaint accelerated hypertension, admit to ICU on cardene gtt, --> off cardene drip now B-ria contraindicated for Cocaine use polysubstance abuse, d/c antibiotics tobacco use disorder CKD3 GERD --> switch pepcid to PPI; as needed GI cocktail. She is tolerating p.o. intake no active bleeding likely just follow-up with GI outpatient History of Present Illness History of Present Illness 07/31 Patient evaluated examined at bedside. no complaints to me. GI evaluated planning for barium swallow tomorrow. If normal can d/c tomorrow with outpatient follow-up 07/30 Evaluated examined at bedside. Seen by GI increase Protonix to twice daily. We will follow up again with her tomorrow. Otherwise no changes from my standpoint. 07/29 Evaluated examined at bedside. Resting in bed able to tolerate p.o. intake. Abd pain improving. Discussed with her possible discharge but specifically requesting to see GI; informed her at this point an inpatient EGD is unlikely with symptom improvement. Still insistent on the consult. Will place consult. 07/28 Patient evaluated examined at bedside. Resting in bed was unable to wake her up meeting the task or to questions. Chart reviewed. Discussed with bedside RN. Pressures improving. 07/27 Patient evaluated examined at bedside. Resting in bed eating lunch. Is still having some pain with eating describes it as a burning pain in the middle of her chest. Switching to Protonix from Pepcid today. Is having some improvement though. Blood pressure notably improved off Cardene drip. Okay to transfer out of ICU. Discussed with bedside RN. Vitals/I&O Vitals/I&O: Vital Signs Date Time Temp Pulse Resp B/P (MAP) Pulse Ox O2 Delivery O2 Flow Rate FiO2 07/31/21 19:00 97.9 78 18 136/71 (92) 98 Room Air 97.9 I & O 07/30/21 07/30/21 07/31/21 15:00 23:00 07:00 Intake Total 430 ml 180 ml 480 ml Balance 430 ml 180 ml 480 ml Physical Exam General: Alert, Oriented X3, Cooperative Heart: Regular rate, Normal S1, Normal S2 Lungs: Clear Abdomen: Normal bowel sounds, Soft, No hepatosplenomegaly, No masses, Other (Mild epigastric tenderness) Extremities: No clubbing Skin: No rashes Assessment and Plan Assessmemt and Plan Problems Medical Problems: (1) Chest pain Status: Acute (2) Hypertensive emergency Status: Acute (3) Lactic acidosis Status: Acute (4) Nausea and vomiting Status: Acute (5) Polysubstance abuse Status: Acute (6) Upper abdominal pain Status: Acute Comment Review of Relevant I have reviewed the following items irene (where applicable) has been applied. Medications: Current Medications Medications (Trade) Dose Ordered Sig/Alexx Route PRN Reason Start Time Stop Time Status Last Admin Dose Admin Thiamine Mononitrate (Vitamin B-1) 100 mg DAILY PO 07/31/21 09:00 07/31/21 07:58 Justifications for Admission Other Justification JAG HOWELL MD Jul 31, 2021 19:51
[2021-07-31] MEDS: ENOXAPARIN 40 MG/0.4 ML SYRINGE. SQ SCH (21:00)
[2021-07-31 23:00] VITALS: BP 139/69
[2021-07-31] MEDS: SENNOSIDES 8.6 MG TABLET PO PRN (23:06)
[2021-08-01 03:00] VITALS: BP 145/70
[2021-08-01] MEDS: HYDROcodone/APAP 5/325MG 1 TAB TABLET PO PRN (06:11)
[2021-08-01 07:00] VITALS: BP 134/76
[2021-08-01] MEDS ORDERED: BARIUM SULFATE 340 GM SUSPENSION. PO ONE (07:45)
[2021-08-01] MEDS ORDERED: SIMETHICONE/SOD BICARB/CITRIC ACID PACKET. PO ONE (07:45)
[2021-08-01] MEDS ORDERED: BARIUM SULFATE 700 MG TABLET PO ONE (07:45)
[2021-08-01] MEDS ORDERED: BARIUM SULFATE 60% 355 ML SUSP PO ONE (07:45)
[2021-08-01] MEDS: IPRATRPIUM/ALBUTEROL 0.5/2.5MG 3 ML NEBU. NEB SCH (08:00)
[2021-08-01] MEDS: THIAMINE 100 MG TABLET. PO SCH (09:09)
[2021-08-01] MEDS: LACTOBACILLUS RHAMNOSUS GG 1 CAPSULE. PO SCH (09:09)
[2021-08-01 09:10] VITALS: BP 134/76
[2021-08-01] MEDS: NICOTINE 21MG PATCH. TD SCH (09:10)
[2021-08-01] MEDS: cloNIDine HCL 0.1 MG TABLET PO SCH (09:10)
[2021-08-01] MEDS: LIDO:MAALOX 1:1 20 ML SINGLE DOSE. PO PRN (09:14)
[2021-08-01] MEDS: PANTOPRAZOLE 40 MG TABLET.DR. PO SCH (09:15)
[2021-08-01] MEDS: FLUTICASONE 50MCG/NASAL SPRAY 16GM BOTTLE. NS SCH (09:16)
--- NOTE | 2021-08-01 09:43 | RAD ---
EXAM: Barium esophagram. HISTORY: Dysphagia. TECHNIQUE: Fluoroscopic imaging was performed during the oral administration of barium contrast of th in and thick consistencies.. Effervescent crystals were administered for dedicated air contrast views . The total fluoroscopy time was 0.8 minutes. 9 fluoroscopic images were obtained. COMPARISON: CT dated 07/26/2021. FINDINGS: There is normal swallowing function. There is no evidence of aspiration or penetration. The esophagus is normal in caliber. No esophageal mucosal lesion is seen. There is normal transit of con trast into the stomach. The gastric contour and mucosal are unremarkable. There is normal emptying of contrast into the small bowel. There is reflux of contrast to the midesophagus with recumbent positi oning. No hernia is seen. IMPRESSION: 1. Gastroesophageal reflux to the midesophagus with recumbent positioning. 2. Otherwise, unremarkable barium esophagram. Electronically signed by: Addis Holland MD (08/01/2021 9:40 AM) [id number]
--- NOTE | 2021-08-01 10:34 | PDOC ---
Date of Service: DATE: 08/01/21 TIME: 10:30 Subjective: Subjective: Would like to go home. Feels food hang in midchest - never comes up - GI cocktail helps it go down. Left rib pain. Objective: Vital Signs: Vital Signs Date Time Temp Pulse Resp B/P (MAP) Pulse Ox O2 Delivery O2 Flow Rate FiO2 08/01/21 09:10 68 134/76 08/01/21 08:31 Room Air 08/01/21 07:00 98.4 18 98 98.4 Imaging: Esophagram 08/01 IMPRESSION: 1. Gastroesophageal reflux to the midesophagus with recumbent positioning. 2. Otherwise, unremarkable barium esophagram. PE: GEN: NAD, eating breakfast LUNGS: CTAB HEART: RRR ABD: S/ND/NT NEURO/PSYCH: A & O 3 A/P: GERD, dysphagia H/o rib fractures, chronic pain +cocaine -- Esophagram as above. DC per primary on PPI, follow-up for outpt 'scopes. Justicifation of Admission Dx: Justifications for Admission: Justification of Admission Dx: N/A SARAH BOSCH Aug 01, 2021 10:34
[2021-08-01] MEDS ORDERED: CLON0.1T PO (10:57)
[2021-08-01] MEDS ORDERED: PANT40TA77 PO (10:57)
[2021-08-03] MEDS ORDERED: HYDR-2761 PO (09:29)
--- NOTE | 2021-08-04 12:19 | PDOC3 ---
[facility]-Discharge Summary Date of Admission: Date of Admission: Jul 26, 2021 Date of Discharge: Date of Discharge: Aug 01, 2021 Admission Diagnosis: Problems: (1) Chest pain (2) Nausea and vomiting Hospital Course: Hospital Course: Chief Complaint accelerated hypertension, admit to ICU on cardene gtt, --> off cardene drip now B-ria contraindicated for Cocaine use polysubstance abuse, d/c antibiotics tobacco use disorder CKD3 GERD --> switch pepcid to PPI; as needed GI cocktail. She is tolerating p.o. intake no active bleeding likely just follow-up with GI outpatient History of Present Illness History of Present Illness 08/01 Patient evaluate examined at bedside. Discussed results of barium swallow with her. She is ready for discharge today. Continue Protonix. Greater than 30 minutes spent on discharge. 07/31 Patient evaluated examined at bedside. no complaints to me. GI evaluated planning for barium swallow tomorrow. If normal can d/c tomorrow with outpatient follow-up 07/30 Evaluated examined at bedside. Seen by GI increase Protonix to twice daily. We will follow up again with her tomorrow. Otherwise no changes from my standpoint. 07/29 Evaluated examined at bedside. Resting in bed able to tolerate p.o. intake. Abd pain improving. Discussed with her possible discharge but specifically requesting to see GI; informed her at this point an inpatient EGD is unlikely with symptom improvement. Still insistent on the consult. Will place consult. 07/28 Patient evaluated examined at bedside. Resting in bed was unable to wake her up meeting the task or to questions. Chart reviewed. Discussed with bedside RN. Pressures improving. 07/27 Patient evaluated examined at bedside. Resting in bed eating lunch. Is still having some pain with eating describes it as a burning pain in the middle of her chest. Switching to Protonix from Pepcid today. Is having some improvement though. Blood pressure notably improved off Cardene drip. Okay to transfer out of ICU. Discussed with bedside RN. Disposition: Disposition/Orders: D/C to Home Activity: Activity: Resume previous activity Diet: Diet: Regular Medications: Home Meds Active Scripts Hydrocodone Bit/Acetaminophen (HYDROCODONE-APAP 5-325 ) 1 Tab Tablet, 1 TAB PO PRN Q6HRS PRN for PAIN for 10 Days, #20 TAB 0 Refills Prov:JAG HOWELL MD 08/03/21 Pantoprazole Sodium (PANTOPRAZOLE SODIUM ) 40 Mg Tablet.dr, 40 MG PO BIDAC for gerd for 60 Days, #120 TAB.SR Prov:JAG HOWELL MD 08/01/21 Clonidine Hcl (CLONIDINE HCL) 0.1 Mg Tablet, 0.1 MG PO DAILY for htn for 60 Days, #60 TAB Prov:JAG HOWELL MD 08/01/21 Hydrocodone Bit/Acetaminophen (HYDROCODONE-APAP 5-325 ) 1 Tab Tablet, 1 TAB PO PRN Q6HRS PRN for PAIN, #15 TAB 0 Refills Prov:LANETTE TALAVERA DO 12/17/20 Chlorhexidine Gluconate (PERIDEX) 15 Ml Mouthwash, 15-30 ML PO TID for 8 Days, #473 ML 0 Refills Prov:HERBERTH LANDRY [employer] 12/01/19 Orphenadrine Citrate (ORPHENADRINE CITRATE) 100 Mg Tablet.er, 1 TAB PO BID PRN for MUSCLE SPASMS, #14 TAB Prov:LISA DONOVAN Jr. DO 11/12/19 Budesonide (PULMICORT FLEXHALER) 180 Mcg Aer.pow.ba, 2 PUFF IH BID for copd, #1 INHALER 6 Refills Prov:ALEXX DUNNE MD 03/03/19 Benzonatate (TESSALON PERLE) 100 Mg Capsule, 1 CAP PO TID for cough, #21 CAP Prov:ALEXX DUNNE MD 03/03/19 Albuterol Sulfate (PROAIR HFA INHALER) 8.5 Gm Hfa.aer.ad, 2 PUFF IH PRN Q4-6HRS PRN for wheezing for 21 Days, #1 INHALER 0 Refills Prov:ALEXX DUNNE MD 03/03/19 Reported Medications Nicotine (NICODERM CQ 21mg) 1 Each Patch.td24, 21 PATCH TP DAILY for quit smoking, #28 PATCH 1 Refill 07/26/21 Ipratropium/Albuterol Sulfate (DUONEB 0.5-3(2.5) MG/3 ML) 3 Ml Ampul.neb, 3 ML NEB QID for copd, EACH 03/01/19 Oxycodone Hcl (OXYCONTIN) 20 Mg Tab.er.12h, 20 MG PO DAILY for PAIN, TAB 03/01/19 Promethazine/Phenyleph/Codeine (PROMETHAZINE VC-CODEINE SYRUP) 473 Ml Syrup, 473 ML PO QID 10/18/13 Atorvastatin Calcium (LIPITOR) 10 Mg Tablet, 10 MG PO HS, #30 TAB 0 Refills 10/18/13 Clonidine Hcl (CLONIDINE HCL) 0.1 Mg Tablet, 0.1 MG PO DAILY 10/18/13 Discontinued Reported Medications Oxycodone Hcl (OXYCODONE HCL) 5 Mg Capsule, 5 MG PO PRN Q6HRS PRN for PAIN, TAB 0 Refills 07/26/21 Discontinued Scripts Penicillin V Potassium (PENICILLIN V POTASSIUM) 500 Mg Tablet, 1 TAB PO TID, #30 TAB Prov:HERBERTH LANDRY APRN 12/01/19 Hydrocodone/Apap 5-325 (NORCO 5-325 TABLET) 1 Each Tablet, 1-2 EACH PO PRN Q6HRS PRN for PAIN, #15 as needed for pain Prov:LISA DONOVAN Jr. DO 11/12/19 Diclofenac Sodium (DICLOFENAC SODIUM) 50 Mg Tablet.dr, 1 TAB PO BID PRN for PAIN, #20 TAB Prov:LISA DONOVAN Jr. DO 11/12/19 [Nicotine 21MG] 1 PATCH PATCH No Conflict Check, 1 PATCH TD PRN DAILY PRN for SMOKING CESSATION 1ST CHOICE, #10 Prov:ALEXX DUNNE MD 03/03/19 Cefdinir (CEFDINIR) 300 Mg Capsule, 300 MG PO BID for acute bronchitis, #14 CAP Prov:ALEXX DUNNE MD 03/03/19 Hydrocodone/Apap 5-325 (NORCO 5-325 TABLET) 1 Each Tablet, 1-2 EACH PO PRN Q6HRS PRN for SEVERE PAIN, #15 TAB as needed for pain Prov:ALEXX DUNNE MD 03/03/19 Meloxicam (MELOXICAM) 7.5 Mg Tablet, 7.5 MG PO DAILY, #20 TAB Prov:GWENDOLYN VERMA DO 08/12/18 Scheduled Atorvastatin Calcium (Lipitor), 10 MG PO HS, (Reported) Benzonatate (Tessalon Perle), 1 CAP PO TID Budesonide (Pulmicort Flexhaler), 2 PUFF IH BID Chlorhexidine Gluconate (Peridex), 15-30 ML PO TID Clonidine Hcl (Clonidine Hcl), 0.1 MG PO DAILY, (Reported) Clonidine Hcl (Clonidine Hcl), 0.1 MG PO DAILY Ipratropium/Albuterol Sulfate (Duoneb 0.5-3(2.5) Mg/3 Ml), 3 ML NEB QID, ( Reported) Nicotine (NICODERM CQ 21mg), 21 PATCH TP DAILY, (Reported) Oxycodone Hcl (Oxycontin), 20 MG PO DAILY, (Reported) Pantoprazole Sodium (Pantoprazole Sodium ), 40 MG PO BIDAC Promethazine/Phenyleph/Codeine (Promethazine Vc-Codeine Syrup), 473 ML PO QID, (Reported) Scheduled PRN Albuterol Sulfate (Proair Hfa Inhaler), 2 PUFF IH PRN Q4-6HRS PRN for wheezing Hydrocodone Bit/Acetaminophen (Hydrocodone-Apap 5-325 ), 1 TAB PO PRN Q6HRS PRN for PAIN Hydrocodone Bit/Acetaminophen (Hydrocodone-Apap 5-325 ), 1 TAB PO PRN Q6HRS PRN for PAIN Orphenadrine Citrate (Orphenadrine Citrate), 1 TAB PO BID PRN for MUSCLE SPASMS Discontinued Medications Cefdinir (Cefdinir), 300 MG PO BID Diclofenac Sodium (Diclofenac Sodium), 1 TAB PO BID PRN for PAIN Hydrocodone/Apap 5-325 ([place] 5-325 Tablet), 1-2 EACH PO PRN Q6HRS PRN for SEVERE PAIN Hydrocodone/Apap 5-325 ([place] 5-325 Tablet), 1-2 EACH PO PRN Q6HRS PRN for PAIN Meloxicam (Meloxicam), 7.5 MG PO DAILY Oxycodone Hcl (Oxycodone Hcl), 5 MG PO PRN Q6HRS PRN for PAIN, (Reported) Penicillin V Potassium (Penicillin V Potassium), 1 TAB PO TID [Nicotine 21MG], 1 PATCH TD PRN DAILY PRN for SMOKING CESSATION 1ST CHOICE Justicifation of Admission Dx: Justifications for Admission: Justification of Admission Dx: N/A JAG HOWELL MD Aug 04, 2021 12:19
== END 2021-08-01 11:38 | disposition home or self-care (01) | DRG 392 ==
LOC: ER 11:12 → 1 WEST ICU 15:08 → 4 NORTH 07-27 18:03
PROVIDERS: ADMIT Internal Medicine; ATTEND Internal Medicine
DX: K21.9 Gastro-esophageal reflux disease without esophagitis (principal); I16.1 Hypertensive emergency; E87.2 Acidosis; I20.9 Angina pectoris, unspecified; E27.8 Other specified disorders of adrenal gland; F14.90 Cocaine use, unspecified, uncomplicated; F17.210 Nicotine dependence, cigarettes, uncomplicated; I12.9 Hypertensive chronic kidney disease with stage 1 through stage 4 chronic kidney disease, or unspecified chronic kidney disease; J44.9 Chronic obstructive pulmonary disease, unspecified; K59.09 Other constipation; N18.30 Chronic kidney disease, stage 3 unspecified; R13.10 Dysphagia, unspecified; Z20.822 Contact with and (suspected) exposure to COVID-19; Z82.49 Family history of ischemic heart disease and other diseases of the circulatory system; G89.29 Other chronic pain; Z90.49 Acquired absence of other specified parts of digestive tract; Z98.51 Tubal ligation status; F19.10 Other psychoactive substance abuse, uncomplicated; J32.9 Chronic sinusitis, unspecified
CPT/HCPCS: 36415; 71045; 71260; 74177; 74220; 80053; 80307; 81001; 82550; 83605; 83690; 83735; 83880; 84100; 84443; 84484; 85025; 87040; 87428; 93005; 94003; 94640; 94760; 96361; 96365; 96366; 96375; J0696; J1650; J2270; J2405; J2930; J3010; J3411; J3490; J7030; J7050; J7060; Q9967; 99285-25; G0378